=== PATIENT | female | born 1955 | race Caucasian/White ===

== ENCOUNTER 2018-01-31 09:56 | Outpatient (RCR) | payer OTHER, SELFPAY ==
--- NOTE | 2018-01-31 10:41 | HP.OTEVAL_ITS ---
Patient's Visit Information SALLY CALLAHAN is a 62 year old F, referred to Occupational Therapy by Out of Town Doctor, with a diagnosis of Right hand Dupuytren contracture. Date of Evaluation: 01/31/18 Occupational Therapist: Karen Mckee, BRETR/Quirino, CHT - Subjective Subjective: This 62 year old female was seen for inital OT eval following a right Dupuytrens contracture xiaflex injection. Pt is in need of custom orthosis for night use only. pt is employed at [employer] and states she is ind. with all BADLS and IADLS. - ROM MP: Right MF/RF/LF -20/7 ROM Comments: pt demo with light brusing over volar palm of right hand- pt demo right digit ext WFL. pt demo the ability to form a composite fist. pt demo with bilateral arthritis joint deformities. - DASH-Disabilities of Arm, Shoulder& Hand DASH Sum: 39 - Goals Goal:: Pt will demo ind. with donning/doffing of custom orthosis by end of 1st session. Pt will demo understanding of orthosis use and precautions by end of 1st session. - Rehabilitation General Assessment: S/P xiaflex injections- pt demo with brusing over palm of right hand, demo good functional ROM at this time. Pt demo need for custom orthosis for night use to prevent fisting while pt is sleeping. Therapist dilip. custom orthosis- pt demo ind. donning and doffing of the orhosis and understanding of use and precaustions. pt was advise to return with orthosis if any of the adj. would be needed. Pt seen for one visit only Rehabilitation Potential: Good - Anticipated Interventions Anticipated Interventions: Orthoses, Home Program - Visit Plan Frequency: one visit TEXT: Thank you for the opportunity to evaluate your patient. For Medicare and Medicare HMO plans, please review the plan of care and approve it. It will need to be FAXED BACK to us at [phone] for Medicare purposes. Please let me know if there are questions or concerns regarding this plan of care. Physician Signature: Date:
--- NOTE | 2018-03-12 13:07 | HP.OTDCSUM_ITS ---
HP - OT D/C Summary It has been my pleasure to treat SALLY CALLAHAN under orders from JORGE RAMSEY, for the diagnosis of Right hand Dupuytren contracture for a total of 1 visit(s). Please see the following information for a summary of their discharge status. Pt was seen for one visit only- for custom orthosis fabrication- pt was instructed in use and precautions of orthosis:pt was to return with orthosis if any adj needed done- pt has not done so at this time and is now D/C - Goals Other: learn how to put orthosis on and off Goal:: Pt will demo ind. with donning/doffing of custom orthosis by end of 1st session. Pt will demo understanding of orthosis use and precautions by end of 1st session. - D/C Information If there are questions or concerns regarding this patient's occupational therapy , please fell free to call me at [phone]. Thank you for the referral of this patient. Sincerely, Karen Mceke, OTR/L, CHT
== END 2018-01-31 19:00 | disposition home or self-care (01) ==
LOC: OT 09:56
PROVIDERS: Family Provider Internal Medicine; PCP Internal Medicine
DX: M72.0 Palmar fascial fibromatosis [Dupuytren] (principal)
CPT/HCPCS: 97165; 97760

== ENCOUNTER 2019-04-07 09:42 | Observation (INO) | payer OTHER, SELFPAY ==
[2019-04-07] VITALS (9 sets, daily range): BP systolic 121–157; BP diastolic 61–83; PULSE 77–90; RESP 11–18; TEMP 36.2–37.2; O2SAT 98–100; BMI 31.8; BMI 31.2
--- NOTE | 2019-04-07 09:55 | ED.DCSUM_ITS ---
History of Present Illness Chief Complaint: Dizziness Detail of Chief Complaint: Lightheadedness, GI bleed, dyspnea and dyspnea on exertion Onset: Weeks - Onset approximately 2 weeks ago Context: Gradual Onset Timing: Continuous Quality: Bright red blood to dark stools Location: GI Current Severity: Mild Maximum Severity: Moderate Worsened by: Orthostatic symptoms, dyspnea on exertion Relieved by: Supine position and rest Associated Symptoms: No chest pain Narrative: Patient is a 63-year-old woman who is not a good informant. She is very hard of hearing. Son who is with her states she does look pale. He states coworkers called because she looked pale and appeared short of breath. She is on no anticoagulant. She discontinued NSAIDs she was taking. She denies history of reflux, peptic ulcer disease. There is no history of lower GI bleed. She does not believe she has hemorrhoids. Patient reports bright red blood noted on tissue paper to very dark stool and possibly maroon-colored stool. Patient's definition of dizziness is lightheadedness. Son states she has a valvular heart problem and may require surgery. She nor her son know which valve. She denies orthopnea or PND. She denies weight loss or weight gain. She complains of fatigue. Denies pica. Prior similar symptoms: No Recent Illness/Hospitalization: No - Past Medical History (1) Cardiac murmur Status: Chronic (2) Hearing deficit Status: Chronic (3) Hyperlipidemia Status: Chronic (4) Hypothyroidism Status: Chronic Past Medical History - Allergies and Home Meds Allergies/Adverse Reactions: Allergies amoxicillin Allergy (Verified 05/21/17 15:04) Rash Primary Care Physician: Vangie Breaux MD [Primary Care Provider] - Prior records reviewed: Yes Surgical History: noncontributory, - - The patient has a history of right hand surgery. She underwent surgery for Dupuytren's contracture of the left hand. She has had bilateral cataract surgery. She is also undergone surgery as described above. Lives: Alone Smoking Status: Never smoker Alcohol: None Drugs: None - Family History Maternal Family History: Reports: - - Patient's father at the age of 77 with a history of hypertension, diabetes mellitus, and heart disease. Patient's mother is living, age 88, with a history of atrial fibrillation. Review of Systems General: Reports: Malaise. Denies: Chills, Fever, Subjective, Sweats, Weight loss Eyes: Denies: Visual changes - bilaterally, Diplopia ENT: Denies: Rhinorrhea, Sore throat Cardiovascular: Denies: Chest pain, Palpitations, Heart racing Respiratory: Denies: Dyspnea, Cough, Dyspnea on exertion, Orthopnea, Paroxysmal nocturnal dyspnea Gastrointestinal: Reports: Melena, Hematochezia. Denies: Abdominal pain, Nausea, Vomiting, Diarrhea, Constipation Genitourinary: Denies: Dysuria, Hematuria, Frequency Musculoskeletal: Denies: Myalgias, Arthralgias, Neck pain, Back pain, Swelling, Extremity Pain, -, - Skin: Denies: Rash, Wounds Neurological: Reports: Weakness. Denies: Headache, Parasthesia, Numbness Hematologic: Denies: Easy bruising, Easy bleeding Allergy: Denies: Uticaria, Swelling of the mouth Physical Exam Vital Signs/Narrative: Vital Signs Temp Pulse Resp BP Pulse Ox 04/07/19 09:45 97.1 F L 81 18 144/73 H 98 Inital Vital Signs reviewed: Yes General: Well nourished, Well developed, No Acute Distress Head: Normocephalic, Atraumatic Eyes: Perrl, EOMI. Negative for: Pale conjunctiva, Scleral icterus ENT: No rhinorrhea, TM's clear, Dry mucous membranes Neck: Supple, Nontender, No lymphadenopathy, No JVD, - Cardiovascular: Regular rate, Regular rhythm, Normal S1, Normal S2, Murmur - Grade 2-3 systolic murmur heard best over the mitral listening area with radiation to the axilla. Respiratory: CTA bilaterally, Chest nontender, - - Patient is tachypneic and breathing much more rapidly than 18 times as recorded by triage. Abdomen: Soft, Nontender, Nondistended, Normal bowel sounds, No masses. Negative for: Hepatomegaly, Splenomegaly, Mass Back: Nontender, Normal Inspection. Negative for: CVA tenderness Extremities: Nontender, No edema Skin: No rash, Pallor. Negative for: Cyanosis, Diaphoresis, Jaundice Neurological: Alert - Positive, Oriented x3, Cranial nerves II-XII grossly intact, Normal Strength, Normal Sensation Psychological: Normal affect, Normal Mood Diagnostic/Tx/Re-eval - EKG Initial EKG Interpretation: Sinus Rhythm - Ventricular rate is 85. AL interval 164 ms. QRS duration is 90 ms. QT duration is 388 ms. [place] to the left. - Medical Decision Making Patient appears pale and concern for anemia. Rectal exam will be performed once patient is undressed and able to examine. CBC was obtained to assess H&H and platelet count. Basic metabolic panel was obtained to assess BUN to creatinine ratio. Orthostatic vital signs were ordered since she reports lightheadedness not dizziness. There is evidence of old blood on pantiliner. Rectal exam reveals no obvious hemorrhoids. Stool is dark red-brown. Findings are consistent with GI bleed. Patient was typed and screened. Also obtain coags. Hemoglobin is 9.7. Hemoglobin was 13.3 September 29, 2016. Since patient is seen by Dr. Mcintosh at the [facility] Dr. Hemant Lara who is on for the clinic as well as no doc was paged for surgical back-up and possible colonoscopy. Once Dr. Lara has been informed the patient's history and physical will page hospitalist for admission. Orthostatic vital signs are unremarkable. Patient require admission with serial H&H's and appropriate for [facility]. ED Disposition - Plan for ED Patient: Diagnosis: Lower GI bleed, Anemia due to acute blood loss, Symptomatic anemia Referrals: Vangie Breaux MD [Primary Care Provider] -
--- NOTE | 2019-04-07 10:07 | EKG12_ITS ---
Test Reason : DIZZY Blood Pressure : / mmHG Vent. Rate : 085 BPM Atrial Rate : 085 BPM P-R Int : 164 ms QRS Dur : 090 ms QT Int : 388 ms P-R-T Axes : 021 -32 033 degrees QTc Int : 461 ms Normal sinus rhythm with sinus arrhythmia Left axis deviation Abnormal ECG Confirmed by STEVE LOPEZ, CRISTINA ([id number]), technical editor FRITZ ROBB ([id number]) on 04/08/2019 1:40:58 PM Referred By: Evan Potter Confirmed By:CRISTINA WILSON MD
[2019-04-07 10:32] LABS: Absolute Lymphocyte Count 1.11 X10^3/ul (0.83-4.51); Basophil# 0.01 X10^3/uL; Basophil% 0.2 % (0-1); Eosinophil# 0.05 X10^3/uL; Eosinophils% 0.8 % (0-5); Hematocrit 32.4 % (37-47); Hemoglobin 10.7 g/dl (12.0-15.0); Lymphocyte # 1.11 X10^3/ul (4.0); Lymphocyte % 16.8 % (19-41); Mean Corpuscular Hgb 32.1 pg (27.0-32.0); Mean Corpuscular Volume 97.3 fL (81-99); Mean Platelet Vol. 9.3 fl (6.2-12.0); Neutrophil # 5.03 X10^3/uL (2.7-7.7); Neutrophil % 75.9 % (47-70); Platelet Count 230 K/mm3 (150-450); RBC Distribution Width CV 13.3 % (11.6-14.6); RBC Distribution Width SD 46.3 fl (35.1-43.9); Red Blood Count 3.33 M/mm3 (4.2-5.4); White Blood Count 6.6 K/mm3 (4.4-11.0)
[2019-04-07 10:33] LABS: POSITIVE COUNT NO; POSITIVE DIFFERENTIAL NO; POSITIVE MORPHOLOGY NO
[2019-04-07 10:42] LABS: Anion Gap 4 (5-15); BUN 9 mg/dL (7-18); BUN/Creat Ratio 16.7 RATIO (10-20); Calcium,Total 8.9 mg/dL (8.5-10.1); Chloride 108 mmol/L (98-107); Creatinine, Serum 0.54 mg/dL (0.55-1.02); EST Glomerular Filtration Rate 121 mL/min (>60); Est Glom Filt Rate - Afr Amer 147 mL/min (>60); Estimated Creatinine Clearance 96.97 ml/min; Glucose 81 mg/dL (74-106); Potassium 3.6 mmol/L (3.5-5.1); Sodium Level 140 mmol/L (136-145)
[2019-04-07 11:14] LABS: International Normalized Ratio 1.1; Prothrombin Time (Protime)PT. 13.7 SECONDS (11.7-14.9)
[2019-04-07 11:15] LABS: Partial Thromboplast Time 25.4 Seconds (24.1-36.2)
--- NOTE | 2019-04-07 11:46 | CASEMGMT ---
RN CM Assessment Introduced role of RN CM to patient and patient brothmanolo Milton at bedside.? Patient is alert, oriented and able?to participate in RN CM Assessment. ?Care providers, pharmacy, and demographics verified. Presentation: Per ER MD note- Patient coworkers called s/t patient SOB and appearing pale in color. Patient [place]. Admit Dx: Hematochezia Re-Admit: No Barriers/Issues: None PCP: Vangie Breaux Specialists: Cardio- Dr Hitchcock, has not seen a new leguillon debeader yet. Allergy- Dr Nighat Downey Preferred Pharmacy: [facility] Insurance: MMO Rx Benefit: Yes? LNOK: Brother Yoan Cabral and Brothmanolo Cabral [phone] LW/HPOA: Yes Both, aware this CM does not see on file at [facility]. HPOA- Brother Yoan Cabral Living Arrangements:?Lives alone in a LL Apartment, 1 step to enter. ADL?s: Independent with ambulation and ADLs Transportation: Patient drives, Upon DC- Brother Yoan DME: None HHC: Past w/[facility]: None Goal: Home, does not think will have any needs. Denies any questions or concerns. Aware CM remains available for any emerging needs. DC PLAN: Home with no anticipated needs identified at this time. MIK Hoyos
[2019-04-07] MEDS: 0.9% Normal Saline 1,000 ML 100 ML IV (13:22)
[2019-04-07] MEDS: Electrolyte Solution/Peg's 4000 ML PO (15:59)
[2019-04-07 16:16] LABS: Hematocrit 30.7 % (37-47); Hemoglobin 10.1 g/dl (12.0-15.0)
--- NOTE | 2019-04-07 19:56 | HP.PCM_ITS ---
Problem List (1) Lightheadedness Status: Acute (2) Rectal bleeding Status: Acute History of Present Illness Date of Admission: 04/07/19 Chief Complaint: Lightheadedness, rectal bleeding The patient is a 63 year old F who was seen in the emergency room at [facility] with a chief complaint of lightheadedness today. Patient also states she has been having a 2-week history of intermittent rectal b leeding, she denies any melanotic stools. Patient is scheduled to have a colonoscopy performed by Dr. Gallo this . Patient was on meloxicam but stopped taking this approximately 2 weeks ago. Work-up in the emergency room included labs which showed her hemoglobin to be 10.7, patient's chemistry profile was unremarkable. Patient's blood pressure on standing dropped 27 points systolic from 157 to 130. Patient will be admitted for lower GI bleeding, she will be seen in consultation by general surgery and have her blood counts monitored. Patient will be placed on IV Pepcid Past Medical History Past Medical History (Chronic Problems): Chronic Problems Hearing deficit (Chronic) Hypothyroidism (Chronic) Hyperlipidemia (Chronic) Cardiac murmur (Chronic) Surgical wound dehiscence (Chronic) Wound, open, scalp with complication (Chronic) Allergies amoxicillin Allergy (Verified 05/21/17 15:04) Rash Home Medications: Ambulatory Orders Medication Instructions Recorded Azelastine HCl [Astelin] 2 spray NASAL QHS 01/19/16 Fluticasone 0.05% [Flonase Nasal 2 spray NASAL DAILY 01/19/16 [place]] Levothyroxine [Synthroid] 150 mcg PO DAILY 01/19/16 Pravastatin [Pravachol] 20 mg PO QHS 01/19/16 Ipratropium [place] 0.06% 2 spray NASAL 4X/DAY 05/21/17 [ATROVENT NASAL SPRAY (g)] Meloxicam 15 mg PO DAILY 05/29/17 Calcium Carb/Vitamin D3/Vit K1 1 tab PO DAILY 07/24/17 Latanoprost 0.005% [Xalatan 1 drop OPHTHALMIC QHS 07/24/17 Opthalmic] Multivitamins,Therapeutic 1 tab PO DAILY 07/24/17 [Multivitamin] Naphazoline HCl/Phenir Mal 1 drp EACH EYE 4X/DAY 04/07/19 [Naphcon-A Eye Drops] Surgical History: cataract, - - The patient has a history of right hand surgery. She underwent surgery for Dupuytren's contracture of the left hand. She has had bilateral cataract surgery. She is also undergone surgery as described above. 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 Patient's mother is living, age 88, with a history of atrial fibrillation. Paternal History Items: Diabetes, Stroke Review of Systems Constitutional: Denies: Anorexia, Chills, Fever, Night Sweats, Malaise, Weakness, Weight Change, Fatigue Eyes: Denies: Cataracts, Conjunctivae Inflammation, Double vision, Drainage HEENT: Denies: Difficulty Hearing, Difficulty Swallowing, Dysphasia, Ear Pain, Eye Pain, Hearing Changes, Nasal bleeding, Nasal Congestion Cardiovascular: Denies: Chest Pain, Claudication, Chest Pressure, Chest Tightness, Edema, Palpitations Respiratory: Denies: Cough, Hemoptysis, Pleuritic Pain, Shortness of Breath, Shortness of breath at rest, Shortness of breath upon exertion Gastrointestinal: Reports: Hematochezia. Denies: Abdominal Pain, Constipation, Diarrhea, Dyspepsia, Hematemesis, Nausea, Melena, Vomiting Genitourinary: Denies: Dysuria, Frequency, Hematuria, Hesitancy, Incontinence, Urgency Gynecological: Denies: Breast symptoms Musculoskeletal: Denies: Back Pain, Foot Pain, Hand Pain, Joint Pain, Joint stiffness, Joint swelling, Joint Tenderness, Leg Pain Skin: Denies: Dryness, Jaundice, Pruritis, Rash Neurological: Denies: Blurred vision, Double vision, Change in Speech, Slurred speech, Difficulty swallowing, Focal weakness, Headaches, Numbness, Tingling Psychiatric: Denies: Anxiety, Depression, Homicidal Ideations, Suicidal Ideations Endocrine: Denies: Change in Body Habitus, Heat/ Cold Intolerance, Polydipsia, Polyuria Hematologic/ Lymphatic: Denies: Adenopathy, Anemia, Easy Bruising, Easy Bleeding, Petechiae, Purpura VTE Information - Inpt Only VTE Present on Admission: No VTE Mechan Device Prophylaxis: SCD's VTE Pharm Prophylaxis ordered?: No Reason prophylaxis not ordered:: Treatment Not Indicated Patient Problems: Active and Suspected Problems Lower GI bleed (Acute) Anemia due to acute blood loss (Acute) Symptomatic anemia (Acute) Lightheadedness (Acute) Rectal bleeding (Acute) - Physical Exam General: Alert, Oriented x3, Cooperative, No apparent distress, Well developed, Well nourished HEENT: Atraumatic, PERRLA, EOMI, Normocephalic Oral: Moist Mucosa Neck: Supple, No JVD, Trachea Midline, Thyroid Normal Size and Texture Lungs: Clear to auscultation, Normal air movement, No rhonchi, No wheeze, No rales Cardiovascular: Regular rate, Regular Rhythm, Normal S1, Normal S2, No murmurs Abdomen: Bowel Sounds Present, Soft, Non Tender, Non-Distended, No hernias noted Extremities: No clubbing, No cyanosis, No edema, Capillary Refill Less than 3 Seconds Skin: No rashes, No breakdown Musculoskeletal: No Tenderness to Palpation of Joints or Extremities Neurological: Cranial nerves II-XII grossly intact, Neuro grossly intact, Sensory exam intact to light touch and pain, Coordination normal Psych/Mental Status: Normal Affect, Appropriate, Alert and oriented to time, place, person, mood and affect Vital Signs Temp Pulse Resp BP Pulse Ox 98.9 F 83 16 121/61 H 100 04/07/19 18:31 04/07/19 18:31 04/07/19 18:31 04/07/19 18:31 04/07/19 18:31 Oxygen Delivery Method Room Air Weight: 56.6 kg Body Mass Index (BMI) 31.2 Intake and Output for Last 24 Hours 04/05/19 04/06/19 04/07/19 23:59 23:59 23:59 Intake Total 434 / 434 Balance 434 / 434 Microbiology Past 72 Hours 04/07/19 10:00 Stool Occult Blood (LINDA) - Final Stool Laboratory Tests Past 24 Hrs 04/07/19 04/07/19 04/07/19 10:00 10:00 10:15 WBC 6.6 RBC 3.33 L Hgb 10.7 L Hct 32.4 L MCV 97.3 MCH 32.1 H MCHC 33.0 RDW 13.3 RDW Differential 46.3 H Plt Count 230 MPV 9.3 Immature Gran % (Auto) 0.300 Neut % (Auto) 75.9 H Lymph % (Auto) 16.8 L [place] % (Auto) 6.0 Eos % (Auto) 0.8 Baso % (Auto) 0.2 Absolute Neuts (auto) 5.0 Absolute Lymphs (auto) 1.11 Total Counted Not Reportable PT Cancelled INR Cancelled APTT Cancelled Sodium 140 Potassium 3.6 Chloride 108 H Carbon Dioxide 28.0 Anion Gap 4 L BUN 9 Creatinine 0.54 L Estim Creat Clear Calc 96.97 Est GFR (MDRD) Af Amer 147 Est GFR (MDRD) Non-Af 121 BUN/Creatinine Ratio 16.7 Glucose 81 Calcium 8.9 Blood Type Antibody Screen 04/07/19 04/07/19 04/07/19 10:15 11:00 15:58 WBC RBC Hgb 10.1 L Hct 30.7 L MCV MCH MCHC RDW RDW Differential Plt Count MPV Immature Gran % (Auto) Neut % (Auto) Lymph % (Auto) [place] % (Auto) Eos % (Auto) Baso % (Auto) Absolute Neuts (auto) Absolute Lymphs (auto) Total Counted PT 13.7 INR 1.1 APTT 25.4 Sodium Potassium Chloride Carbon Dioxide Anion Gap BUN Creatinine Estim Creat Clear Calc Est GFR (MDRD) Af Amer Est GFR (MDRD) Non-Af BUN/Creatinine Ratio Glucose Calcium Blood Type A POSITIVE Antibody Screen NEGATIVE Assessment/Plan All Active Problems Lower GI bleed (Acute) Anemia due to acute blood loss (Acute) Symptomatic anemia (Acute) Lightheadedness (Acute) Rectal bleeding (Acute) #1 Acute lower GI bleed-patient was placed into observation status, H and H will be monitored, general surgery will see the patient consultation, we will plan on the patient having endoscopy tomorrow. #2 anemia-probably secondary to acute blood loss, monitor H&H #3 hypothyroidism #4 hyperlipidemia-patient's Pravachol will be held for now, she is currently in observation status #5 osteoarthritis Code Visit Inpatient E&M: 89895 Init Hosp L3
[2019-04-07 20:32] LABS: Hematocrit 29.5 % (37-47); Hemoglobin 9.7 g/dl (12.0-15.0)
--- NOTE | 2019-04-07 22:27 | CON.PCM_ITS ---
Reason for Consult Date of Consultation: 04/07/19 Reason for Consultation: hematochezia History of Present Illness: The patient is a 63 year old F presents to [facility] with complaint of lightheadedness and feeling dizzy after 2 week history of rectal bleeding. The patient was scheduled to see my partner-Dr. Gallo but noted the above complaints and presented to [facility] emergency department. she was seen by Dr. Marino in our office on March 31. She noted that she had had rectal bleeding at that time for approximately 1 week. She underwent colonoscopy 2009 which demonstrated tortuous colon diverticulosis and hemorrhoids. She has noted bloody stools for the last week. She denied constipation or straining with her bowel movements. She denied abdominal pain. She noted no family history of colon cancer. the patient has a known history of aortic stenosis. She underwent echocardiogram on September 04, 2018. she is noted to have severe aortic valvular stenosis there was no aortic valvular regurgitation. There felt to be severe calcifications. The peak flow was turned 97 cm/s with a peak gradient of 35 mmHg. The estimated aortic valve area was 0.77 cm?. estimated Salena August 2016 was 1.1 cm?. she is recommended to have close follow-up and anticipated need for valve replacement in the future. she takes meloxicam. She takes no other blood thinners. Past Medical History Past Medical History (Chronic Problems): Chronic Problems Hearing deficit (Chronic) Hypothyroidism (Chronic) Hyperlipidemia (Chronic) Cardiac murmur (Chronic) Surgical wound dehiscence (Chronic) Wound, open, scalp with complication (Chronic) Allergies amoxicillin Allergy (Verified 05/21/17 15:04) Rash Home Medications: Ambulatory Orders Medication Instructions Recorded Azelastine HCl [Astelin] 2 spray NASAL QHS 01/19/16 Fluticasone 0.05% [Flonase Nasal 2 spray NASAL DAILY 01/19/16 [place]] Levothyroxine [Synthroid] 150 mcg PO DAILY 01/19/16 Pravastatin [Pravachol] 20 mg PO QHS 01/19/16 Ipratropium [place] 0.06% 2 spray NASAL 4X/DAY 05/21/17 [ATROVENT NASAL SPRAY (g)] Meloxicam 15 mg PO DAILY 05/29/17 Calcium Carb/Vitamin D3/Vit K1 1 tab PO DAILY 07/24/17 Latanoprost 0.005% [Xalatan 1 drop OPHTHALMIC QHS 07/24/17 Opthalmic] Multivitamins,Therapeutic 1 tab PO DAILY 07/24/17 [Multivitamin] Naphazoline HCl/Phenir Mal 1 drp EACH EYE 4X/DAY 04/07/19 [Naphcon-A Eye Drops] Surgical History: cataract, - - The patient has a history of right hand surgery. She underwent surgery for Dupuytren's contracture of the left hand. She has had bilateral cataract surgery. She is also undergone surgery as described above. 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 Patient's mother is living, age 88, with a history of atrial fibrillation. Paternal History Items: Diabetes, Stroke Review of Systems Constitutional: Reports: Malaise, Weakness. Denies: Chills, Fever, Weight Change HEENT: Denies: Head Aches, Sinus Congestion, Sinus Drainage Cardiovascular: Denies: Chest Pain, Palpitations Respiratory: Denies: Cough, Shortness of breath at rest, Sputum production Gastrointestinal: Reports: Hematochezia. Denies: Abdominal Pain, Nausea, Vomiting Genitourinary: Denies: Dysuria Musculoskeletal: Denies: Joint Pain, Joint Tenderness Patient Problems: Active and Suspected Problems Lower GI bleed (Acute) Anemia due to acute blood loss (Acute) Symptomatic anemia (Acute) Lightheadedness (Acute) Rectal bleeding (Acute) - Physical Exam General: Alert, Oriented x3, Cooperative Neck: Supple, No JVD, Negative Carotid Bruits Lungs: Clear to auscultation, Normal air movement Cardiovascular: Regular rate, Murmur Abdomen: Bowel Sounds Present, Soft, Non Tender Vital Signs Temp Pulse Resp BP Pulse Ox 98.9 F 83 16 121/61 H 100 04/07/19 18:31 04/07/19 18:31 04/07/19 18:31 04/07/19 18:31 04/07/19 18:31 Oxygen Delivery Method Room Air Weight: 56.6 kg Body Mass Index (BMI) 31.2 Intake and Output for Last 24 Hours 04/05/19 04/06/19 04/07/19 23:59 23:59 23:59 Intake Total 434 / 434 Balance 434 / 434 Microbiology Past 72 Hours 04/07/19 10:00 Stool Occult Blood (LINDA) - Final Stool Laboratory Tests Past 24 Hrs 04/07/19 04/07/19 04/07/19 10:00 10:00 10:15 WBC 6.6 RBC 3.33 L Hgb 10.7 L Hct 32.4 L MCV 97.3 MCH 32.1 H MCHC 33.0 RDW 13.3 RDW Differential 46.3 H Plt Count 230 MPV 9.3 Immature Gran % (Auto) 0.300 Neut % (Auto) 75.9 H Lymph % (Auto) 16.8 L [place] % (Auto) 6.0 Eos % (Auto) 0.8 Baso % (Auto) 0.2 Absolute Neuts (auto) 5.0 Absolute Lymphs (auto) 1.11 Total Counted Not Reportable PT Cancelled INR Cancelled APTT Cancelled Sodium 140 Potassium 3.6 Chloride 108 H Carbon Dioxide 28.0 Anion Gap 4 L BUN 9 Creatinine 0.54 L Estim Creat Clear Calc 96.97 Est GFR (MDRD) Af Amer 147 Est GFR (MDRD) Non-Af 121 BUN/Creatinine Ratio 16.7 Glucose 81 Calcium 8.9 Blood Type Antibody Screen 04/07/19 04/07/19 04/07/19 10:15 11:00 15:58 WBC RBC Hgb 10.1 L Hct 30.7 L MCV MCH MCHC RDW RDW Differential Plt Count MPV Immature Gran % (Auto) Neut % (Auto) Lymph % (Auto) [place] % (Auto) Eos % (Auto) Baso % (Auto) Absolute Neuts (auto) Absolute Lymphs (auto) Total Counted PT 13.7 INR 1.1 APTT 25.4 Sodium Potassium Chloride Carbon Dioxide Anion Gap BUN Creatinine Estim Creat Clear Calc Est GFR (MDRD) Af Amer Est GFR (MDRD) Non-Af BUN/Creatinine Ratio Glucose Calcium Blood Type A POSITIVE Antibody Screen NEGATIVE 04/07/19 20:05 WBC RBC Hgb 9.7 L Hct 29.5 L MCV MCH MCHC RDW RDW Differential Plt Count MPV Immature Gran % (Auto) Neut % (Auto) Lymph % (Auto) [place] % (Auto) Eos % (Auto) Baso % (Auto) Absolute Neuts (auto) Absolute Lymphs (auto) Total Counted PT INR APTT Sodium Potassium Chloride Carbon Dioxide Anion Gap BUN Creatinine Estim Creat Clear Calc Est GFR (MDRD) Af Amer Est GFR (MDRD) Non-Af BUN/Creatinine Ratio Glucose Calcium Blood Type Antibody Screen Assessment/Plan All Active Problems Lower GI bleed (Acute) Anemia due to acute blood loss (Acute) Symptomatic anemia (Acute) Lightheadedness (Acute) Rectal bleeding (Acute) hematochezia, GI bleed I plan to perform upper and lower endoscopy. The patient was taken to the risks, benefits, possible complicationsand alternatives including increased risk to her severe aortic stenosis. The patient consents to this planned endoscopic procedure.
[2019-04-07] MEDS: Ipratropium Bromide 0.06% NASAL SPRAY 2 SPRAY NASAL (23:03)
[2019-04-07] MEDS: 0.9% NaCl Peripheral Flush Adult/Peds IV (23:04)
[2019-04-07] MEDS: Latanoprost 0.005% 1 Bottle 1 DRP OPHTHALMIC (23:06)
[2019-04-08] VITALS (10 sets, daily range): BP systolic 80–108; BP diastolic 50–63; PULSE 74–89; RESP 16–18; TEMP 36.4–37.1; O2SAT 96–100; BMI 31.2
[2019-04-08] MEDS: 0.9% Normal Saline 1,000 ML 100 ML IV ×2 (00:01→08:04)
[2019-04-08 00:49] LABS: Hematocrit 30.1 % (37-47); Hemoglobin 10.1 g/dl (12.0-15.0)
[2019-04-08] MEDS: Ondansetron 4 MG/2 ML Vial IV (03:00)
--- NOTE | 2019-04-08 05:00 | EKG12_ITS ---
Test Reason : AM EKG Blood Pressure : / mmHG Vent. Rate : 084 BPM Atrial Rate : 084 BPM P-R Int : 134 ms QRS Dur : 086 ms QT Int : 398 ms P-R-T Axes : 019 -40 001 degrees QTc Int : 470 ms Normal sinus rhythm Left axis deviation Nonspecific ST abnormality Abnormal ECG When compared with ECG of 07-APR-2019 10:23, MANUAL COMPARISON REQUIRED, DATA IS UNCONFIRMED Confirmed by SONIA MINER ([id number]), index editor FRITZ ROBB ([id number]) on 04/10/2019 2:01:10 PM Referred By: Evan Potter Confirmed By:SONIA MINER
[2019-04-08] MEDS: Levothyroxine 150 MCG Tablet PO (05:18)
--- NOTE | 2019-04-08 05:56 | NURSING ---
Report given to Judith MCKOY in [place]. Pt ready to be transported.
--- NOTE | 2019-04-08 06:30 | EGD_PTH ---
PATIENT: SALLY CALLAHAN LOC: [facility] U#:[id number] AGE/SX: 63/F ROOM: [facility] RE04/07/[address]: Dr. Evan Potter DO : 1955 BED: 1 DIS: 04/08/2019 SPEC #: [id number] RECD: 04/08/19 08:14 STATUS: SARMAD REChelsey #: [id number] ROCIO: 04/08/19 06:[address]: Hemant Olsen DEPT: SURGICAL PATHOLOGY RECD BY: Meek Tong ENTERED: 04/08/19 14:17 SP TYPE: EGD BIOPSY OT DR: MD Dr. Evan Gray DO Tissues: A - Gastric mucous membrane B - Esophageal mucous membrane C - Rectum, NOS Procedures: Surgery Specimen Level IV HEADER OPERATION: Colonoscopy, EGD ([facility] [place]) PRE-OP DIAGNOSIS: Hematochezia TISSUE SUBMITTED: A - Antral biopsy for H. pylori/path, B - Distal esophagus biopsy, C - Rectal biopsy MICROSCOPIC DIAGNOSIS A. Antral biopsy: Mild gastritis. See microscopic description and comment. B. Distal esophagus, biopsy: Fragments of squamous epithelium with mild chronic inflammation. C. Rectal biopsy: Hyperplastic polyp with superficial acute inflammation. SJ:rg 04/09/19 COMMENT A. The results of immunohistochemistry for Helicobacter pylori will be reported separately ([id number]). Correlation with clinical, endoscopic findings and appropriate follow up are necessary. MICROSCOPIC DESCRIPTION Slides are reviewed. A. The specimen shows fragments of gastric mucosa with chronic inflammatory cell infiltrates in the lamina propria consisting of lymphocytes and plasma cells, consistent with mild chronic gastritis. GROSS DESCRIPTION A - Received in fixative is one container labeled with the patient's name and designated antral biopsy. The specimen consists of one irregular fragment of light vences soft tissue that measures 0.4 x 0.4 x 0.1 cm. The specimen is totally submitted in one cassette. B - Received in fixative is one container labeled with the patient's name and designated distal esophagus biopsy. The specimen consists of one irregular fragment of light vences soft tissue that measures 0.5 x 0.3 x 0.1 cm. The specimen is totally submitted in one cassette. C - Received in fixative is one container labeled with the patient's name and designated rectal biopsy. The specimen consists of one irregular fragment of light vences soft tissue that measures 0.4 x 0.3 x 0.1 cm. The specimen is totally submitted in one cassette. / SJ:rg 04/08/19 TC:1 CPT: 67155 x3
--- NOTE | 2019-04-08 06:30 | IMM_PTH ---
PATIENT: SALLY CALLAHAN LOC: [facility] U#:[id number] AGE/SX: 63/F ROOM: [facility] RE04/07/[address]: Dr. Evan Potter DO : 1955 BED: 1 DIS: 04/08/2019 SPEC #: [id number] RECD: 04/08/19 16:32 STATUS: SARMAD REQ #: [id number] ROCIO: 04/08/19 06:[address]: Hemant Olsen DEPT: IMMUNOHISTOCHEMISTRY RECD BY: Xiomy Veliz ENTERED: 04/08/19 16:33 SP TYPE: IMMUNO OTHR DR: MD Dr. Evan Gray DO Tissues: A - Stomach, NOS Procedures: H Pylori (initial) PHYSICIAN & INSTITUTION [place] [id number] SPECIMEN INFORMATION: Tissue Source: A - Antral biopsy Clinical Info: Hematochezia Specimen Number: [id number] CPT code: 36364 METHODOLOGY: Deparaffinized sections of prefer/formalin-fixed tissue or PAP/DQ stained slides are incubated with monoclonal/polyclonal antibodies/oligonucleotide probes. Localization is made via biotin free immunoperoxidase method. Appropriate controls are performed and reacted as expected. Results on target cell population are indicated in the following table: RESULTS: ANTIBODY / CLONE RESULT Block A H Pylori (polyclonal) negative These tests were developed and their performance characteristics determined by [facility]. They may not have been cleared or approved by the U.S. Food and Drug Administration. The FDA has determined that such clearance or approval is not necessary. INTERPRETATION: A. Antral biopsy: Negative for Helicobacter pylori organisms. SJ:sven 04/09/19
--- NOTE | 2019-04-08 07:10 | PCM.PN.SRG ---
Patient Problems: Active and Suspected Problems Lower GI bleed (Acute) Anemia due to acute blood loss (Acute) Symptomatic anemia (Acute) Lightheadedness (Acute) Rectal bleeding (Acute) - Physical Exam General: Alert, Oriented x3, Cooperative Lungs: Clear to auscultation, Normal air movement Cardiovascular: Regular rate, Murmur Abdomen: Bowel Sounds Present, Soft, Non Tender Vital Signs Temp Pulse Resp BP Pulse Ox 97.9 F 87 16 108/63 96 04/08/19 04:30 04/08/19 04:30 04/08/19 04:30 04/08/19 04:30 04/08/19 04:30 Oxygen Delivery Method Room Air Weight: 56.6 kg Body Mass Index (BMI) 31.2 Intake and Output for Last 24 Hours 04/06/19 04/07/19 04/08/19 23:59 23:59 23:59 Intake Total 1833.4 / 1833.4 834 / 834 Balance 1833.4 / 1833.4 834 / 834 Microbiology Past 72 Hours 04/07/19 10:00 Stool Occult Blood (LINDA) - Final Stool Laboratory Tests Past 24 Hrs 04/07/19 04/07/19 04/07/19 10:00 10:00 10:15 WBC 6.6 RBC 3.33 L Hgb 10.7 L Hct 32.4 L MCV 97.3 MCH 32.1 H MCHC 33.0 RDW 13.3 RDW Differential 46.3 H Plt Count 230 MPV 9.3 Immature Gran % (Auto) 0.300 Neut % (Auto) 75.9 H Lymph % (Auto) 16.8 L [place] % (Auto) 6.0 Eos % (Auto) 0.8 Baso % (Auto) 0.2 Absolute Neuts (auto) 5.0 Absolute Lymphs (auto) 1.11 Total Counted Not Reportable PT Cancelled INR Cancelled APTT Cancelled Sodium 140 Potassium 3.6 Chloride 108 H Carbon Dioxide 28.0 Anion Gap 4 L BUN 9 Creatinine 0.54 L Estim Creat Clear Calc 96.97 Est GFR (MDRD) Af Amer 147 Est GFR (MDRD) Non-Af 121 BUN/Creatinine Ratio 16.7 Glucose 81 Calcium 8.9 Blood Type Antibody Screen 04/07/19 04/07/19 04/07/19 10:15 11:00 15:58 WBC RBC Hgb 10.1 L Hct 30.7 L MCV MCH MCHC RDW RDW Differential Plt Count MPV Immature Gran % (Auto) Neut % (Auto) Lymph % (Auto) [place] % (Auto) Eos % (Auto) Baso % (Auto) Absolute Neuts (auto) Absolute Lymphs (auto) Total Counted PT 13.7 INR 1.1 APTT 25.4 Sodium Potassium Chloride Carbon Dioxide Anion Gap BUN Creatinine Estim Creat Clear Calc Est GFR (MDRD) Af Amer Est GFR (MDRD) Non-Af BUN/Creatinine Ratio Glucose Calcium Blood Type A POSITIVE Antibody Screen NEGATIVE 04/07/19 04/08/19 20:05 00:25 WBC RBC Hgb 9.7 L 10.1 L Hct 29.5 L 30.1 L MCV MCH MCHC RDW RDW Differential Plt Count MPV Immature Gran % (Auto) Neut % (Auto) Lymph % (Auto) [place] % (Auto) Eos % (Auto) Baso % (Auto) Absolute Neuts (auto) Absolute Lymphs (auto) Total Counted PT INR APTT Sodium Potassium Chloride Carbon Dioxide Anion Gap BUN Creatinine Estim Creat Clear Calc Est GFR (MDRD) Af Amer Est GFR (MDRD) Non-Af BUN/Creatinine Ratio Glucose Calcium Blood Type Antibody Screen Medical Necessity - Tobacco Use Smoking Status: Never smoker Tobacco Use: Non-smoker Assessment/Plan All Active Problems Lower GI bleed (Acute) Anemia due to acute blood loss (Acute) Symptomatic anemia (Acute) Lightheadedness (Acute) Rectal bleeding (Acute) hematochezia, GI bleed - likely diverticular bleed upper and lower endoscopy performed. EGD - mild duodenitis, gastritis, small hiatal hernia and mild distal esophagitis. no signs of upper GI bleeding. colon - -dense diverticulosis, no active bleeding, old blood in last 20cm - likely distal diverticular bleed. small rectal polyp removed
--- NOTE | 2019-04-08 07:15 | OP.ENDO_ITS ---
04/08/2019 Vangie Breaux [address] [phone] Re : Upper GI endoscopy procedure for Vinita Cabral Dear Dr. Breaux This procedure was performed on Monday, April 08, 2019. My impressions and recommendations are as follows: Impressions : - Normal examined jejunum. - Duodenitis. - Gastritis. Biopsied. - Small hiatal hernia. - Mildly severe reflux esophagitis. Biopsied. Recommendations : - Return patient to hospital good for ongoing care. - Use Protonix (pantoprazole) 40 mg PO daily. - Continue present medications. My findings are described in the full procedure note, which is enclosed. If I can be of further assistance, please feel free to contact me at Doctor phone number(s): , Work: . Sincerely, Hemant Olsen MD 04/08/2019 7:15:20 AM This report has been signed electronically.
--- NOTE | 2019-04-08 07:18 | OP.ENDO_ITS ---
04/08/2019 Vangie Breaux [address] [id number] Re : Colonoscopy procedure for Vinita Cabral Dear Dr. Breaux This procedure was performed on Monday, April 08, 2019. My impressions and recommendations are as follows: Impressions : - One 4 mm polyp at the recto-sigmoid colon, removed with a cold biopsy forceps. Resected and retrieved. - Diverticulosis in the entire examined colon. - Blood in the sigmoid colon. - The distal rectum and anal verge are normal on retroflexion view. Recommendations : - Return patient to hospital good for ongoing care. - Resume previous diet. - Continue present medications. - Repeat colonoscopy is recommended. The colonoscopy date will be determined after pathology results from today's exam become available for review. My findings are described in the full procedure note, which is enclosed. If I can be of further assistance, please feel free to contact me at Doctor phone number(s): , Work: . Sincerely, Hemant Olsen MD 04/08/2019 7:18:17 AM This report has been signed electronically.
[2019-04-08] MEDS: Pantoprazole Sodium 40 MG Tablet PO (09:57)
[2019-04-08] MEDS: Ipratropium Bromide 0.06% NASAL SPRAY 2 SPRAY NASAL ×2 (09:58→13:32)
--- NOTE | 2019-04-08 10:33 | CASEMGMT ---
SW let patient know that her Healthcare POA and Healthcare LW are not on file at [facility]. Tona MOJICA DIAMOND SELECTOR
--- NOTE | 2019-04-08 10:35 | DCINST_ITS ---
- Discharge Diagnoses Current Active Problems: Current Active and Chronic Problems Lower GI bleed (Acute) Anemia due to acute blood loss (Acute) Symptomatic anemia (Acute) Lightheadedness (Acute) Rectal bleeding (Acute) You will use the following diet at home:: No restrictions Your food should be the consistency of: Regular Your liquids should be the consistency of: Regular/Thin Discharge Activity: Return to Normal Activity Weight Bearing Status: Full weight bearing Allergies/Adverse Reactions: Allergies amoxicillin Allergy (Verified 05/21/17 15:04) Rash Medications to take at Discharge Azelastine HCl [Astelin] 2 spray NASAL QHS 01/19/16 Fluticasone 0.05% [Flonase Nasal [place]] 2 spray NASAL DAILY 01/19/16 Levothyroxine [Synthroid] 150 mcg PO DAILY 01/19/16 Pravastatin [Pravachol] 20 mg PO QHS 01/19/16 Ipratropium [place] 0.06% [ATROVENT NASAL SPRAY] 2 spray NASAL 4X/DAY 05/21/17 Calcium Carb/Vitamin D3/Vit K1 1 tab PO DAILY 07/24/17 Latanoprost 0.005% [Xalatan Opthalmic] 1 drop OPHTHALMIC QHS 07/24/17 Multivitamins,Therapeutic [Multivitamin] 1 tab PO DAILY 07/24/17 Naphazoline HCl/Phenir Mal [Naphcon-A Eye Drops] 1 drp EACH EYE 4X/DAY 04/07/19 Pantoprazole Sodium [Protonix] 40 mg PO DAILY #30 tab 04/08/19 The following prescriptions were given: Pantoprazole Sodium [Protonix] 40 mg PO DAILY #30 tab Transmission Status: Pending to [id number] Primary Care Physician: Vangie Breaux MD [Primary Care Provider] - Please follow up with your Primary Care Physician in: in 1-2 weeks Test Results: Test results from this visit will be discussed in further detail at your follow- up appointment, if applicable. Please Follow Up With: Hemant Olsen MD When: in 3 weeks
--- NOTE | 2019-04-10 09:05 | PCM.DC.SUM ---
Discharge Date and Diagnosis Date of Admission: 04/07/19 Date of Discharge: 04/08/19 - Primary Discharge Diagnosis #1 diverticular bleed #2 gastritis #3 colon polyp #4 gastritis #5 reflux esophagitis #6 anemia of acute GI bleeding not requiring transfusion - Secondary Discharge Diagnosis Chronic Problems Hearing deficit (Chronic) Hypothyroidism (Chronic) Hyperlipidemia (Chronic) Cardiac murmur (Chronic) Surgical wound dehiscence (Chronic) Wound, open, scalp with complication (Chronic) Hospital Course and Treatment Procedures: Colonoscopy, EGD Summary of Care Provided: The patient is a 63 year old F who was seen in the emergency room at [facility] with chief complaint of lightheadedness and rectal bleeding. Patient was scheduled to undergo colonoscopy later this week but because of the lightheadedness, came to the ER for evaluation. Evaluation in the ER showed the patient be slightly anemic, systolic blood pressure did drop on orthostatic measurements but the patient was asymptomatic. General surgery was contacted and agreed to carry out endoscopy, the patient was placed in observation status on PCU and her hemoglobin was monitored-there was no significant drop in hemoglobin during her hospitalization. On 04/08/2019, patient underwent colonoscopy and an EGD, there is evidence of diverticulosis but no active bleeding, small colon polyp was removed, patient had gastritis, esophagitis, and duodenitis on her EGD. On 04/08/2019, patient was seen and examined: On examination she appeared in good health and spirits. Vital signs as documented. Skin warm and dry and without overt rashes. Neck without JVD. Lungs clear. Heart exam notable for regular rhythm, normal sounds and absence of murmurs, rubs or gallops. Abdomen unremarkable and without evidence of organomegaly, masses, or abdominal aortic enlargement. Extremities nonedematous. Neuro: Cranial nerves II through XII are grossly intact, no focal motor deficits were noted, sensation to light touch and pinprick is intact. Psych: Patient is alert and oriented x3, she does not appear anxious or depressed On 04/08/2019, patient was seen and examined felt to be in stable condition for discharge home - Physical Exam Vital Signs Temp Pulse Resp BP Pulse Ox 98.3 F 74 18 99/50 L 97 04/08/19 13:50 04/08/19 13:50 04/08/19 13:50 04/08/19 13:50 04/08/19 13:50 Oxygen Delivery Method Room Air Weight: 56.6 kg Body Mass Index (BMI) 31.2 Intake and Output for Last 24 Hours 04/08/19 04/09/19 04/10/19 23:59 23:59 23:59 Intake Total 834 / 834 Output Total 200 / 200 Balance 634 / 634 Microbiology Past 72 Hours 04/07/19 10:00 Stool Occult Blood (LINDA) - Final Stool Discharge Activity: Return to Normal Activity Weight Bearing Status: Full weight bearing Home Medications: Medications to take at Discharge Azelastine HCl [Astelin] 2 spray NASAL QHS 01/19/16 Fluticasone 0.05% [Flonase Nasal [place]] 2 spray NASAL DAILY 01/19/16 Levothyroxine [Synthroid] 150 mcg PO DAILY 01/19/16 Pravastatin [Pravachol] 20 mg PO QHS 01/19/16 Ipratropium [place] 0.06% [ATROVENT NASAL SPRAY] 2 spray NASAL 4X/DAY 05/21/17 Calcium Carb/Vitamin D3/Vit K1 1 tab PO DAILY 07/24/17 Latanoprost 0.005% [Xalatan Opthalmic] 1 drop OPHTHALMIC QHS 07/24/17 Multivitamins,Therapeutic [Multivitamin] 1 tab PO DAILY 07/24/17 Naphazoline HCl/Phenir Mal [Naphcon-A Eye Drops] 1 drp EACH EYE 4X/DAY 04/07/19 Pantoprazole Sodium [Protonix] 40 mg PO DAILY #30 tab 04/08/19 Following Prescrptions Were Given to Patient: Pantoprazole Sodium [Protonix] 40 mg PO DAILY #30 tab Transmission Status: Received by [id number] Primary Care Physician: Vangie Breaux MD [Primary Care Provider] - Please follow up with your Primary Care Physician in: in 1-2 weeks Please Follow Up With: Hemant Olsen MD When: in 3 weeks Disposition: Home Minutes spent on discharge:: 31 Patient Condition:: Stable Medical Necessity - Tobacco Use Smoking Status: Never smoker Tobacco Use: Non-smoker Meaningful Use Info Meaningful Use Diagnoses (Choose all that apply): None applicable Code Visit OBSV E&M: 95903 Observation care discharge
== END 2019-04-08 13:32 | disposition home or self-care (01) ==
LOC: ED 10:10 → PCU 13:20
PROVIDERS: Surgery; Admitting Provider Internal Medicine; Emergency Provider Emergency Medicine; Family Provider Internal Medicine; PCP Internal Medicine; Referring Provider Internal Medicine; Visit Provider Internal Medicine
PROC: 0DJD8ZZ Inspection of Lower Intestinal Tract, Via Natural or Artificial Opening Endoscopic (ICD-10-PCS; CPT 45378; principal; 2019-04-08 06:25)
DX: K57.31 Diverticulosis of large intestine without perforation or abscess with bleeding (principal); D62 Acute posthemorrhagic anemia; K29.70 Gastritis, unspecified, without bleeding; K21.0 Gastro-esophageal reflux disease with esophagitis; E03.9 Hypothyroidism, unspecified; E78.5 Hyperlipidemia, unspecified; H91.90 Unspecified hearing loss, unspecified ear; M19.90 Unspecified osteoarthritis, unspecified site; K44.9 Diaphragmatic hernia without obstruction or gangrene; Z79.899 Other long term (current) drug therapy
CPT/HCPCS: 43239; 45380; 36415; 80048; 82274; 85014; 85018; 85025; 85610; 85730; 86850; 86900; 88305; 88342; 93005; 96361; 96374; 96375; 99218; 99285; J7030; A4216; G0378; J2405; J3490

== ENCOUNTER → 2020-02-06 08:00 | Outpatient (CLI) | payer OTHER, SELFPAY ==
[2019-04-08 00:52] VITALS: BMI 31.2
--- NOTE | 2020-02-06 08:05 | RAD_ITS ---
STUDY: AIR-CONTRAST UPPER GI SERIES AND SMALL BOWEL FOLLOW-THROUGH EXAMINATION. REASON FOR EXAM: Female, 64 years old. Bloating for 1-2 months FLUOROSCOPY TIME (if supplied): ( 142 seconds ) minutes/seconds TECHNIQUE: The patient ingested barium. Multiple images of the esophagus, stomach and duodenum were obtained. Following this, a small bowel follow-through examination was performed. COMPARISON: None. FINDINGS: The esophagus is unremarkable. There is no evidence of obstruction. No mass lesion or gastroesophageal reflux is seen. The stomach and duodenum are unremarkable. There is no evidence of ulceration. No mass lesion is present. A small bowel follow-through examination was then performed. The small bowel transit is normal. There is no evidence of intrinsic or extrinsic small bowel disease. The terminal ileum is unremarkable. RAD/Upper GI/w Small Bowel IMPRESSION: Unremarkable air contrast upper GI series and small bowel follow-through examination. Electronically Signed: Frank Lucero, at 10:21 EDT , Service support ,
== END ==
PROVIDERS: PCP Internal Medicine; Referring Provider Nurse Practitioner Adult Health; Visit Provider Nurse Practitioner Adult Health
DX: R14.0 Abdominal distension (gaseous) (principal)
CPT/HCPCS: 74246; 74248

== ENCOUNTER 2020-03-04 16:57 | Emergency (ER) | payer OTHER, SELFPAY ==
[2019-04-08 00:52] VITALS: BMI 31.2
[2020-03-04 16:58] VITALS: BP 132/95; PULSE 104; RESP 18; TEMP 36.9; O2SAT 97; BMI 32.8
--- NOTE | 2020-03-04 17:23 | EKG12_ITS ---
Test Reason : FEVER Blood Pressure : / mmHG Vent. Rate : 101 BPM Atrial Rate : 101 BPM P-R Int : 186 ms QRS Dur : 086 ms QT Int : 338 ms P-R-T Axes : 028 -33 030 degrees QTc Int : 438 ms Sinus tachycardia Left axis deviation T wave abnormality, consider anterior ischemia Abnormal ECG Confirmed by STEVE LOPEZ, CRISTINA ([id number]), social media editor HAL WOOD ([id number]) on 03/08/2020 1:36:19 PM Referred By: JON Confirmed By:CRISTINA WILSON MD
--- NOTE | 2020-03-04 17:28 | ED.DCSUM_ITS ---
- ER Visit Summary Date of Service: 03/04/20 Chief Complaint: [Fever] History of Present Illness: The patient is a 64 F presents to the emergency department complaint of a fever that started today after lunch. Her temperature went up to 102.4. Patient planes of chills and some mild shortness of breath. Patient developed a cough that started yesterday. Patient also had some lower back pain yesterday. She denies urinary symptoms. Patient states that she is status post aortic valve replacement on February [address] Neri in [place]. Patient states the cough is nonproductive. She denies any rashes. Patient tested negative for COVID 19 prior to her surgery. Patient with history of hypothyroidism as well as history of high cholesterol. Patient denies any sick contacts. [] Physical Examination: [HEENT-PERRLA, EOMI. Cranial nerves II through XII grossly intact. TMs clear. Mucous membranes moist. No adenopathy. Cardiovascular-regular rate and rhythm without murmur or ectopy Lungs-good aeration bilaterally. Patient has a faint rales in both bases. Some coarse breath sounds bilaterally. No accessory muscle use or retractions. Patient's sternal incision appears slightly erythematous superiorly. No purulent drainage noted. Abdomen-normoactive bowel sounds, soft, nontender, no rebound or rigidity, no peritoneal signs. Extremities-intact ?4, normal range of motion, normal pulses, atraumatic] Test Results: EKG obtained arrival shows sinus rhythm with a ventricular rate of 101 bpm with some nonspecific ST changes. CBC with it showing a 16.8, hemoglobin 8.6, hematocrit 28, platelets 214. Chemistries unremarkable. INR was 1.2 and PTT was 32. Urinalysis was significant for 500 leukocyte esterase as well as nitrites and greater than 100 WBCs as well as +3 bacteria. Troponin was less than 0.015. Lactate was elevated 3.0. Chest x-ray obtained showed atelectasis and/or possible infiltrate in the left lower lobe.] COVID-19 test pending Emergency Department Course and Treatment: Patient had blood cultures ordered. Urine culture ordered. Patient was started initially empirically on Levaquin 750 mg IV as well as vancomycin 1 g IV. Patient was given 30 cc/kg fluid bolus as she did have one blood pressure with a systolic in the 90s. [Case was discussed with patient's surgeon Dr. Neri and he was made aware of patient's condition and presenting complaint. Surgeon was comfortable with keeping the patient at our facility for treatment of the UTI however he recommended if patient continues to have persistent fever and not feeling well despite antibiotic treatment that he would recommend evaluation of the valve at that time.] Treatment Plan: [Transfer to [facility]. I discussed case with internal medicine physician here at [facility] who also spoke with cardiology and they have reservations about keeping the patient here should the patient seed her valve and our inability to obtain LAUREANO's here. I was asked to transfer patient back to [facility].] Disposition: [Transfer. Prior to transferring the patient while awaiting transfer to tertiary care center patient's blood pressure decreased into the 90s and 80s systolic. She is mentating normally. Patient states that her normal blood pressure is 88-100 systolic. Patient has had a total of 2 L of fluid. We discussed possibly placing a triple-lumen central line and starting pressors however patient does not want to proceed at this time prior to transfer. Understand that she is septic.] Impression: [UTI Severe sepsis Postop aortic valve replacement Anemia] This note was generated with [employer] dictation software. It may contain incorrect words, spelling, and punctuation that were not noted in review of the chart deonte or to signing ED Disposition - Plan for ED Patient: Referrals: Vangie Breaux MD [Primary Care Provider] -
[2020-03-04 18:08] LABS: Absolute Lymphocyte Count 0.46 X10^3/uL (0.83-4.51); Absolute Neutrophil Count 14.9 X10^3/uL (2.0-7.7); Basophil# 0.01 X10^3/uL; Basophil% 0.1 % (0-1); Hematocrit 28.4 % (37-47); Hemoglobin 8.6 g/dL (12.0-15.0); Lymphocyte # 0.46 X10^3/ul (4.0); Lymphocyte % 2.7 % (19-41); Mean Corp Hgb Conc 30.3 g/dL (32-36); Mean Corpuscular Hgb 33.3 pg (27.0-32.0); Mean Corpuscular Volume 110.1 fL (81-99); Mean Platelet Vol. 10.5 fl (6.2-12.0); Monocyte# 1.21 X10^3/uL; Monocyte% 7.2 % (0-10); NRBC Flagged by Analyzer 0.2 % (0-5); Neutrophil # 14.94 X10^3/uL (2.7-7.7); Neutrophil % 88.9 % (47-70); POSITIVE DIFFERENTIAL YES; Platelet Count 214 K/mm3 (150-450); RBC Distribution Width CV 16.3 % (11.6-14.6); RBC Distribution Width SD 61.8 fl (35.1-43.9); Red Blood Count 2.58 M/mm3 (4.2-5.4); White Blood Count 16.8 K/mm3 (4.4-11.0)
[2020-03-04 18:18] LABS: International Normalized Ratio 1.2; Prothrombin Time (Protime)PT. 14.9 SECONDS (11.7-14.9)
[2020-03-04] MEDS: levoFLOXacin IV 750 MG/150 ML BAG 100 MG IV (18:27)
[2020-03-04] MEDS: 0.9% Normal Saline 1,000 ML 150 ML IV (18:29)
[2020-03-04 18:31] VITALS: BP 117/46; PULSE 98; RESP 26; TEMP 37.8; O2SAT 97
[2020-03-04 18:31] LABS: Anion Gap 8 (5-15); BUN 18 mg/dL (7-18); BUN/Creat Ratio 19.4 RATIO (10-20); Calcium,Total 9.4 mg/dL (8.5-10.1); Chloride 100 mmol/L (98-107); Creatinine, Serum 0.93 mg/dL (0.55-1.02); EST Glomerular Filtration Rate 65 mL/min (>60); Est Glom Filt Rate - Afr Amer 78 mL/min (>60); Estimated Creatinine Clearance 57.33 ml/min; Glucose 162 mg/dL (74-106); Potassium 3.7 mmol/L (3.5-5.1); Sodium Level 139 mmol/L (136-145)
[2020-03-04 18:45] LABS: Mucous, Urine 0 SEEN /hpf (<or=2+); Squamous Epithelial Cells - UA 0 SEEN /hpf (5-10)
--- NOTE | 2020-03-04 18:45 | RAD_ITS ---
STUDY: X-RAY CHEST REASON FOR EXAM: Female, 64 years old. MITRAL VALVE REPLACEMENT ON 02/19. TODAY HAS 102 FEVER AT HOME, CHILLS, SOB. PALE SKIN COLOR TECHNIQUE: Single AP portable view of the chest. COMPARISON: None. FINDINGS: manager monitoring leads are present. The left hemidiaphragm is elevated. There may be left basilar atelectasis or infiltrate. The heart size is within normal limits. Status post median sternotomy. Normal mediastinum and jodi. Normal visualized pulmonary arteries. Normal visualized aortic arch and descending thoracic aorta. Normal visualized thoracic spine. There are degenerative changes of the shoulder joints. There is no demonstrated abnormality of the visualized soft tissue structures of the upper abdomen. RAD/Chest 1 View (Portable) IMPRESSION: Elevated left hemidiaphragm. There may be left basilar atelectasis or infiltrate. Status post median sternotomy. Degenerative changes of the shoulder joints. Electronically Signed: Ilia Sal MD at 19:09 EDT , Service support ,
[2020-03-04 18:46] LABS: Color, Urine Yellow (Yellow); Glucose, Dipstick 100 mg/dl (Normal); Ketone-Dipstick Negative (Negative); Leukocyte Esterase-Dipstick 500 /ul (Negative); Nitrite-Dipstick Positive (Negative); Occult Blood-Urine 250 /ul (Negative); Protein-Dipstick 100 mg/dl (Negative); Specific Gravity, Urine 1.015 (1.002-1.030); Urine Bilirubin Dipstick Negative (Negative); Urine Clarity Cloudy (Clear); Urine Urobilinogen Normal (Normal)
[2020-03-04 18:48] LABS: Differential Indicated SCAN CRITERIA MET
[2020-03-04 19:00] VITALS: BP 110/60; PULSE 107; RESP 20; TEMP 38.5; O2SAT 96
[2020-03-04 19:04] LABS: Bacteria 3+ /hpf (None Seen); Red Blood Cells-Urine 10-25 SEEN /hpf (0-5); White Blood Cells >100 SEEN /hpf (0-5)
[2020-03-04 19:04] LABS: Anisocytosis RARE; Platelet Estimate ADEQUATE (ADEQ); Red Cell Morphology N CHROM NORMAL (NORM C&C)
[2020-03-04 19:05] LABS: Macrocytosis RARE
[2020-03-04] MEDS: 0.9% Normal Saline 1,000 ML 999 ML IV (19:36)
[2020-03-04] MEDS: Acetaminophen 325 MG Tablet 650 MG PO (20:04)
[2020-03-04 20:25] LABS: Probe Check PASS; Specimen Processing Control PASS
[2020-03-04] MEDS: Vancomycin IV 1,000 MG/200 ML BAG 200 MG IV (20:37)
[2020-03-04 20:38] VITALS: BP 91/51; PULSE 101; PULSE 102; RESP 24; RESP 29; TEMP 37.8; O2SAT 94
--- NOTE | 2020-03-04 20:47 | ED.RN ---
pt's bp is slowly declining. current bp is 90/51, dr zhang made aware and 500ml bolus ordered.
[2020-03-04 21:11] VITALS: BP 85/50; PULSE 92; RESP 20; TEMP 37.7; O2SAT 98
[2020-03-04 21:25] VITALS: BP 86/43; PULSE 93; RESP 21; TEMP 37.7; O2SAT 97
[2020-03-04 22:01] LABS: Reflex Lactate? Y
== END 2020-03-04 21:30 | disposition short-term general hospital (02) ==
LOC: ED 19:50
PROVIDERS: Emergency Provider Emergency Medicine; PCP Internal Medicine
DX: N39.0 Urinary tract infection, site not specified (principal); R65.20 Severe sepsis without septic shock; D64.9 Anemia, unspecified; E03.9 Hypothyroidism, unspecified; E78.00 Pure hypercholesterolemia, unspecified; Z95.2 Presence of prosthetic heart valve; Z79.82 Long term (current) use of aspirin
CPT/HCPCS: 71045; 80048; 81001; 83605; 84484; 85025; 85610; 85730; 87040; 87635; 93005; 96365; 96366; 96375; 99285; G2023; J7030; J7040; J7050; A4216; U0003

== ENCOUNTER → 2020-04-15 07:56 | Outpatient (CLI) | payer OTHER, SELFPAY ==
--- NOTE | 2020-04-15 08:03 | CR.ITP_ITS ---
Diagnosis - General Information Admitting Diagnosis: S/P AVR @ [facility] BY DR. 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 Maintain the individual as the primary focus of care. 2. To improve the patient's quality of life. 3. Identification of cardiac risk factors and provide cardiac risk factor management. 4. Enhance the psychosocial status of the patient. 5. Reconditioning enough to allow the patient to resume customary activities. 6. Control symptoms of cardiac disease Personal Goals: Initial Assessment: Improve energy level, Participate in home exercise program, Get back to work, or to resume activities faster, Improve knowledge of cardiac disease, Improve muscle strength and endurance, Improve diet and eating habits (eat healthier), Control risk factors (learn risk factor modification) Scale for measuring improvement of personal goals: Enter appropriate number in Comments. 2 = Unchanged. 3 = Slightly Better. 4 = Moderate Improvement. 5 = Met my Goal - Diagnosis & Disease Process Outcomes/Goals: Pt IDs own risk factors & lifestyle modifications by Session 10, Verbalizes symptoms of angina & response by session 3., Pt independently manages Plan/Interventions: Assist Pt to ID & engage in lifestyle modification to reduce CVD risk, Instruct on individual risk factors, Review symptoms of angina & emergency actions, Review secondary diagnosis & identify educational needs. - Safety Referral to Physical Therapy: No Referral to [facility] Case Management: No Fall Risk Assessed:: Yes Assistive Devices:: None Exercise - Initial Assessment - Visit Date of Eval: 04/15/20 Session #:: 0 - INITIAL EVALUATION Mets: Pre-: >5 METS for 30 minutes by discharge - Physician Prescribed Exercise Modalities: Treadmill, Airdyne, NuStep, SciFit Frequency: 3x/week for 12 weeks [36 sessions] Intensity: 60-80% of age predicted maximum heart rate reserve Current METSs:: 3.0 Target Heart Rate:: 101-132 Resting Blood Pressure: 100/68 EKG Type: SINUS BRADYCARDIA otherwise normal - Outcomes & Goals Goals:: Verbalizes understanding of THR, RPE & goal METS by session 6, Documents in home exercise log/reports 30 min aerobic 5 day/wk by DC, Demonstrates accurate pulse taking by DC - Intervention & Plan Exercise Program Goals: Instruct on personal THR & RPE, Instruct on MET level & personal MET goal, Show patient to take own pulse /validate performance until accurate, Instruct on home exercise - Physical Activity Home Exercise Physical Activity - Home Exercise: Safe Exercise, Warm-up, Self-monitoring, Cool-Down, Home Exercise > 30 min Daily, Sitting Time <3 hours/daily - Outcomes & Goals Outcomes/Goals: Demonstrates correct Warm-up/exercise Cool-Down (S3) if = 2.5 METs, Verbalizes symptoms of exercise intolerance by Session 3 (S3), Demonstrate safe equipment use (S3) & follows exercise prescrition (6) - Intervention & Plan Plan/Intervention: Instruct warm-up & cool-down if exercising at > 2 METs, Instruct on symptoms of exercise intolerance & actions to take, Instruct & monitor on saf, Assess intial functional capacity & safety risk Nutrition - Initial Assessment - Program Goals Nutrition Program Goals: LDL <100 optimal. 100 - 129 Near optimal. 130 - 159 Borderline High. 160 - 189 High. Total Cholesterol <200 desirable. 200 - 239 Borderline High. >/= 240 High. HDL < 40 Low >/=60 High. Triglycerides <150 desirable. <199 optimal. VlDL 5 - 40. HgbA1C <7%. BMI <25 Patient has diagnosis of Hyperlipidemia (ICD E78)?: Yes - Visit Date of Assessment:: 04/15/20 Session #:: 0 - initial evaluation pre-cardiac rehab - Cholesterol/Lipids Triglycerides (mg/dL): 0 - unavailable Determine presence & major risk factors that modify LDL goal: Hypertension or hypertensive medication, Family history of premature CHD in Male < 55 years: female <65 yearsFa, Age men > 45 years; women >/= 55 years Outcomes/Goals: Pt IDs own risk factors & lifestyle modifications by Session 10, Verbalizes symptoms of angina & response by session 3., Pt independently manages Intervention/Plan: Instruct on personal lipid levels & lipid goals/NCEP guidelines, Instruct on cholesterol Referral to dietitian:: Yes - Diabetes (Other Core Measures) Diabetes Type: Not Applicable - Weight Mgt (Other Care) Not Applicable: No Height: 4 ft 5 in Weight:: 134 lb BMI: 33.5 Diagnosis Overweight/Obesity BMI> 30% ICD-10 E66: Yes Diagnosis High BMI/Morbid Obesity BMI> 35% ICD-10 Z68: No Outcomes/Goals: Pt sets, maintains & shows weight loss goal & trend during rehab Intervention/Plan: Instruct on ideal BMI & set weight loss goal w/patient, Assist pt to ID & incorporate diet changes for weight loss by S9, Refer to Structured Weight Loss program as appropriate, Encourage goal of using 250- 300dcal per session for weight loss - Healthy Eating Habits Will attend diet classes:: Yes Outcomes/Goals:: Consume diet rich in vegs,fruits,whole grain/high fiber,fish,lean meat, Limit sat/trans fats,cholesterol & added salts & sugars Intervention/Plan:: Assess current eating habits - Education Gave educational materials for:: Healthy eating Medical - Initial Assessment - Visit Date of Eval: 04/15/20 Session #:: 0 - initial evaluation pre-cardiac rehab - Medication Compliance Preventative Medication(s):: Aspirin, Statin/lipid, Beta akash H/O mental health issues: depression, anxiety, or addiction?: No Doesn?t believe in the benefits of treatment?: No Believes medications are unnecessary or harmful?: No Has a concern about medication side effects?: No Expresses concern over the cost of medications?: No Outcomes/Goals: Verbalizes medications,desired effect & common side effects @ DC, Pt self-reports following medication regimen, Keeps card in wallet w/medications listed by DC Interventions/plans: Instruct on medication effects & side effects, Review medication list w/patient every two weeks, Instruct importance of taking meds as ordered & assist problem solving - Tobacco Use Tobacco Use: Non-smoker - Hypertension Hypertension Diagnosis:: Hypertension ICD-10 I10 Resting Blood Pressure:: 100/68 [place] [employer] Hypertension Guidelines: [place] [employer] Hypertension Guidelines. Normal BP Less than 120/80. Elevated BP 120/80. Hypertension Stage 1: BP 130-139/80-89. Hypertesnion Stage 2: BP 140 or higher/90 or higher. Hypertension Crisis: BP higher than 180/120 Outcomes/Goals: Able to verbalize/achieve optimal blood pressure <130/80, Incorporates diet changes & exercise for blood pressure control by DC Interventions/plan: Instruct on optimal blood pressure, hypertension & medications, Instruct on effects of sodium, alcohol, stress, exercise &hypertension - Tobacco Cessation Referral Smoking Cessation Referral:: No Individual Education/Counseling:: No Education Schedule Given:: Yes Psychosocial - Initial Assess - VIsit Date of Eval: 04/15/20 Session #:: 0 - initial evaluation pre-cardiac rehab Not Applicable: Yes History of previous Mental disease:: No - Target Goals Target Goals: Assess presence or absence of depression. Using a valid screening tool, maximizes coping skills. Positive support system - Psychosocial Test Tool Used:: [employer] Power QOL Cardiac, PHQ-9 Questionnaire phq-9 Severity: Severity. 1-4 Minimal Depression. 5-9 Mild Depression. 10-14 Moderate Depression. 15-19 Moderately Sever Depression. 20-27 Severe Depression. Rule: - Referral to Behavioral Health PS - Interventions: Yes Attend Stress Management Classes, No Referral to [facility] - Outcomes/Goals: See list Psychosocial Outcomes/Goals:: ID's personal stressors & 2 strategies to manage stress by discharge - Intervention/Plan: See List Interventions/Plan:: Assess stressors,coping strategies & signs of derpression on admission, Instruct/assist pt to develop coping & personal stress Mgt strateg ies, Instruct patient to recognize signs & symptoms of depression, Instruct patient to recog Patient Health Questionnaire Initial Assessment 1. Little interest or pleasure in doing things: Not at all 2. Feeling down, depressed, or hopeless: Not at all 3. Trouble falling or staying asleep, or sleeping too much: Several days 4. Feeling tired or having little energy: Several days 5. Poor appetite or overeating: Several days 6. Feeling bad about yourself -- or that you are a failure or have let yourself or your family down: Not at all 7. Trouble concentrating on things, such as reading the newspaper or watching television: Not at all 8. Moving or speaking so slowly that other people could have noticed. Or the opposite - being so fidgety or restless that you have been moving around a lot more than usual: Not at all 9. Thoughts that you would be better off , or of hurting yourself in some way: Not at all How difficult have these problems made it for you to do your work, take care of things at home, or get along with other people?: Somewhat difficult Total Score: 3 KATIUSKA-Q SV Test - Statements CAD is a disease of the arteries in the heart: False Examples of risk factors for heart disease: True Angina is chest pain or discomfort: I Don't Know The benefits of resistance training include: True Eating more meat and dairy products: False Anti-platelet medications such as aspirin are important: True The only effective way to manage stress: False An exercise warm-up slowly increases heart rate: True Prepared, processed foods usually have high sodium: True Depression is common after a heart attack: True The statin medications lower cholesterol: True To control blood pressure, lower the amount of sodium: True If someone gets chest discomfort during walking: False Transfats are partially hydrogenated vegetable oils: True Sleep apnea that is not treated increases the risk: True To control cholesterol, one should become a vegetarian: False Someone knows if he/she is exercising at the right level: True Diabetes cannot be prevented with exercise & health eating: False Stress is a large risk for heart attack: True A diet that can help lower blood pressure is rich in: True - Total Score Total Correct Responses: 18 Self-Efficacy Initial Assessment We would like to know how confident you are in doing certain activities. Please select your confidence level for:: Select your confidence level for the following using the scale 1-10 where 1 is not at all confident and 10 is totally confident. Your score is the average of all 6 responses. Fatigue: How confident are you that you can keep the fatigue caused by your disease from interfering with the things you want to do? Select Number: 7 Physical Discomfort or Pain: How confident are you that you can keep the physical discomfort or pain of your disease from interfering with the things you want to do? Select Number: 8 Emotional Distress: How confident are you that you can keep the emotional distress caused by your disease from interfering with the things you want to do? Select Number: 9 Other Symptoms or Health Problems: How confident are you that you can keep other symptoms or health problems from interfering with the things you want to do? Select Number: 8 Different Tasks and Activities: How confident are you that you can do the different tasks and activities needed to manage your health condition so as to reduce your need to see a doctor? Select Number: 9 Medication: How confident are you that you can do things other than just taking medication to reduce how much your illness affects your everyday life? Select Number: 8 Total Score:: 8 Nutrition Survey - Nutrition Survey Instructions Scoring Instructions: Scoring is as follows: Yes = 1 points. No = 0 point. Patient score that is >/=12 is considered to be at potential nutritional risk and could benefit from a referral to a registered dietitian. - Nutrition Survey Initial Have you lost >10 lbs over the past 2 months without trying?: No Are you following a special diet at home for diabetes, low fat, or low salt?: No Are you interested in meeting with a dietitian for help understanding your diet?: Yes Do you eat less than 3 meals a day?: No Do you eat fatty meats (ozuna, sausage, ribs, etc), fried foods, desserts, large amounts of salad dressings, margarine, butter, or cheese most days?: No Do you have food allergies? [Enter types in comment field]: No Do you eat in restaurants more than 3 times a week?: No Do you season food with salt, seasoning salt, or garlic salt?: Yes Do you used canned, boxed, frozen meals, or soups, seasoning packets?: No Total Score:: 2
--- NOTE | 2020-04-15 08:04 | CR.HP_ITS ---
CR - History & Physical - General Arrival date:: 04/15/20 Arrival time:: 08:12 Date of Referral:: 04/09/20 Date of CR Evaluation:: 04/15/20 Referring Physician: DR. MCQUEEN-SURGEON / DR. 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 Primary Diagnosis: S/P AVR - History of Present Cardiac Event Onset Date: Enter Onset Date of cardiac illnesses in Comment field below Heart valve replacement or repair:: Yes - S/P AVR @ [facility] 02/20/2020 - Medications Home Medications: Ambulatory Orders Medication Instructions Recorded Azelastine HCl [Astelin] 2 spray NASAL QHS 01/19/16 Fluticasone 0.05% [Flonase Nasal 2 spray NASAL DAILY 01/19/16 [place]] Levothyroxine [Synthroid] 150 mcg PO DAILY 01/19/16 Pravastatin [Pravachol] 20 mg PO QHS 01/19/16 Ipratropium [place] 0.06% 2 spray NASAL 4X/DAY 05/21/17 [ATROVENT NASAL SPRAY] Latanoprost 0.005% [Xalatan 1 drop RIGHT EYE QHS 07/24/17 Opthalmic] Multivitamins,Therapeutic 1 tab PO DAILY 07/24/17 [Multivitamin] Naphazoline HCl/Phenir Mal 1 drp EACH EYE TID PRN PRN 04/07/19 [Naphcon-A Eye Drops] Alendronate Sodium [Fosamax] 70 mg PO DOWLING 03/04/20 Ascorbic Acid [Vitamin C] 500 mg PO DAILY 03/04/20 Aspirin E.C. [Ecotrin] 162 mg PO DAILY@0800 03/04/20 Calcium Carbonate/Vitamin D3 1 tab PO DAILY 03/04/20 [Calcium 600 + Vit D Tablet] Ferrous Sulfate 325 mg PO DAILY 03/04/20 Folic Acid 1 mg PO DAILY 03/04/20 Gabapentin [Neurontin] 200 mg PO BID 03/04/20 Magnesium Oxide [Mag-Ox 400] 400 mg PO DAILY 03/04/20 Metoprolol Succinate [Toprol Xl] 25 mg PO DAILY 03/04/20 Pantoprazole Sodium [Protonix] 40 mg PO DAILY 03/04/20 Potassium Chloride [Klor-Con M20] 20 meq PO TID 03/04/20 Sennosides/Docusate Sodium [Senna 1 tab PO BID PRN PRN 03/04/20 Plus 8.6-50 mg Tablet] Tramadol HCl [Ultram] 50 mg PO Q6H PRN PRN 03/04/20 Alendronate Sodium [Fosamax] 70 mg PO Q7D@0700 04/15/20 Bumetanide 2 mg PO 04/15/20 - Allergies Allergies/Adverse Reactions: Allergies amoxicillin Allergy (Verified 05/21/17 15:04) Rash - Sleep Disorder Evaluation Hx of Sleep Apnea: Yes Do you snore loudly (louder than talking or can be heard through closed doors)?: Yes - HAS HOME CPAP UNIT History of Hypertension (for STOP score): Yes Advanced Directives - Advanced Directives Power of First Aid Nurse: Yes Living Will: Yes Advance Directives Information Provided: No Advance Directives on File: Yes - should have it DNR Order?:: No - MOLST See MOLST form: No Past Medical History - Past Medical Illness Medical History: Past Medical History (Last Updated 04/15/20 @ 08:21 by Salo Haywood, HUSAM, [employer], BS) APONEUROPATHY RIGHT HAND COCHLEAR IMPLANT LEFT EAR Diverticulitis K57.92 Glaucoma H40.9 Goiter E04.9 Internal hemorrhoids without complication K64.8 LEFT HAND SURGERY DUPUYTREN'S CONTRACTUR Osteopenia M85.80 REMOVAL BILATERAL CATARACTS Seborrheic keratoses L82.1 Shingles B02.9 Gilbert's syndrome, unspecified Q96.9 Chronic left shoulder pain M25.512, G89.29 Chronic rhinitis J31.0 Hypertension I10 - Past Surgical History Surgical History: Past Surgical History (Last Updated 04/15/20 @ 08:20 by Salo Haywood, HUSAM, [employer], BS) H/O right heart catheterization Z98.890 S/P AVR (aortic valve replacement) Z95.2 Surgical History: cataract, - - The patient has a history of right hand surgery. She underwent surgery for Dupuytren's contracture of the left hand. She has had bilateral cataract surgery. She is also undergone surgery as described above. 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 - Hobbies, Recreation, Social Activities Hobbies: Walking, None Recreational Activities: I am able to engage in most, but not all activities Social Environment - Status Marital Status: Single - Current Living Arrangements Living Environment:: Alone - Children Do any of your children live nearby?: No - Safety Do you feel safe in your surroundings?: Yes - Assistance Do you need any assistance at home?: NO Review of Systems - Review of Systems Hints: Right click = Denies ([place]). Left click = Reports ([place]) Review of Present Symptoms: Reports: Shortness of Breath with Exertion - sometimes when walking but has improved since the surgery, Wound Healing, Fatigue, Appetite - Normal, Appetite - Special Diet - low fat, low cholesterol, low sodium. Denies: Shortness of Breath at Rest, Operative Discomfort, Dizziness/Lightheadedness - Pain Is Patient Pain Free?: Yes Pain Location: none Pain Level: 0/10 Risk Factor Assessment - Chief Complaint Chief Complaint: S/P AVR - Vital Signs Temperature: 97.3 F Respiratory Rate: 16 Pulse Ox: 98 Blood Pressure: 100/68 - Pulse Pulse Rate: 91 Pulse Rhythm: Regular - Hypertension Blood Pressure Sitting - Right Arm: 100/68 - Blood Cholesterol/Lipids Total Cholesterol (mg/dL) Goal = less than 200 mg/dL: 0 - recent labs unavailable - Obesity Height: 4 ft 5 in Weight:: 134 lb Weight in Pounds: 134.0 lbs Weight Source: Standing Scale Body Mass Index (BMI): 33.5 Nutritional Referral for Obesity: Yes - Why Weight Program - Physical Inactivity Physical Inactivity: Recreational activity, None - Risk Stratification Risk Guidelines: Lowest Risk: Risk Factor for Smoking, Risk Factor for Diabetes, Risk Factor for Hypertension, Risk Factor for Sedentary Lifestyle - low to moderate, Risk Factor for Depression, Moderate Risk: Risk Factor for Sedentary Lifestyle, Highest Risk: Risk Factor for Obesity - For Smoking Smoking Risk Guidelines: Smoking Low Risk: None or quit greater than 6 months ago. Smoking Moderate Risk: Smoker or quit 6 months or less ago. Smoking High Risk: Smoker - For Dyslipidemia Dyslipidemia Risk Guidelines: Low Risk: Moderate Risk: High Risk: 15-25% fat 25.1-29% fat >/= 30% fat. <7% sat fat 7-9% sat fat >9% sat fat. <150 mg chol 150-299 mg chol >/= 300 mg chol. LDL <100 LDL 100-129 LDL >/= 130. Chol/HDL ratio <5.0 Chol/HDL ratio 5.0-6.0 Chol/HDL ratio >6.0. Triglycerides <100 Triglycerides 100- 149 Triglycerides >/= 150 - For Diabetes Mellitus Diabetes Risk Guidelines: Diabetes Low Risk: HgA1c <6.5% and/or FBG <120. Diabetes Moderate Risk: HgA1c 6.6-7.9% and/or FBG 120-180. Diabetes High Risk: HgA1c >/= 8% and/or FBG >180 - For Obesity/Overweight Obesity/Overweight Risk Guidelines: Obesity Low Risk: BMI <25.0. Obesity Moderate Risk: BMI 25-29.9. Obesity High Risk: BMI >/= 30.0 - For Hypertension Hypertension Risk Guidelines: Hypertension Low Risk: Systolic <120 and Diastolic <80. Hypertension Moderate Risk: Systolic 120-139 and Diastolic 80-89. Hypertension High Risk: Systolic >/= 140 and Diastolic >/= 90 - For Sedentary Lifestyle Sedentary Lifestyle Risk Guidelines: Sedentary Lifestyle Low Risk: >/= 1,500 kcal/week. Sedentary Lifestyle Moderate Risk: 700-1,499 kcal/week. Sedentary Lifestyle High Risk: < 700 kcal/week - For Depression Depression Risk Guidelines: Depression Low Risk: Not clinically depressed. Depression Moderate Risk: Mildly depressed. Depression High Risk: Clinically depressed Motivation - Motivation to Participate On a scale of 1 to 10, how prepared are you to commit to attending program?: 9 What do you see as barriers to successfully being able to complete the program?: no What do you see as the benefits of succesfully completing the program? In other words, what do you hope to get out of participating in the program?: healthier, get more energy Are there issues you are dealing with that will interfere with completing the program?: no Do you have a spouse or signficant other, family or friends who will help support you to complete the program?: yes
[2020-04-15 08:35] VITALS: BP 100/68; PULSE 91; RESP 16; TEMP 36.3; O2SAT 98; BMI 33.5
[2020-04-15 09:08] VITALS: BP 100/68; BMI 33.5
== END ==
PROVIDERS: PCP Internal Medicine; Referring Provider Thoracic Surgery (Cardiothoracic Vascular Surgery); Visit Provider Thoracic Surgery (Cardiothoracic Vascular Surgery)
DX: E03.9 Hypothyroidism, unspecified (principal); E78.5 Hyperlipidemia, unspecified; I10 Essential (primary) hypertension; Z68.33 Body mass index [BMI] 33.0-33.9, adult

== ENCOUNTER 2020-04-30 10:15 | Outpatient (RCR) | payer OTHER, SELFPAY ==
[2020-04-15 08:35] VITALS: BMI 33.5
[2020-04-15 09:08] VITALS: BMI 33.5
== END 2020-04-30 23:59 ==
LOC: CR 10:15
PROVIDERS: PCP Internal Medicine; Referring Provider Thoracic Surgery (Cardiothoracic Vascular Surgery); Visit Provider Thoracic Surgery (Cardiothoracic Vascular Surgery)
DX: Z95.2 Presence of prosthetic heart valve (principal)
CPT/HCPCS: 93798

== ENCOUNTER 2020-05-19 10:54 | Outpatient (RCR) | payer OTHER, SELFPAY ==
[2020-04-15 08:35] VITALS: BMI 33.5
[2020-04-15 09:08] VITALS: BMI 33.5
[2020-05-06 09:27] VITALS: BMI 34.0
== END 2020-05-19 23:59 | disposition home or self-care (01) ==
LOC: NS 10:54
PROVIDERS: PCP Internal Medicine; Visit Provider Internal Medicine
DX: Z71.3 Dietary counseling and surveillance (principal); Z68.33 Body mass index [BMI] 33.0-33.9, adult; I10 Essential (primary) hypertension; E78.5 Hyperlipidemia, unspecified; E03.9 Hypothyroidism, unspecified
CPT/HCPCS: 97802

== ENCOUNTER 2020-05-31 10:15 | Outpatient (RCR) | payer OTHER, SELFPAY ==
[2020-04-15 08:35] VITALS: BMI 33.5
[2020-04-15 09:08] VITALS: BMI 33.5
--- NOTE | 2020-05-06 09:19 | PCM.CR.ITP ---
Exercise - 30-day Assessment - Visit Date of Eval: 05/06/20 Session #:: 8 - Physician Prescribed Exercise Modalities: Treadmill, NuStep, SciFit Frequency: 3x/week for 12 weeks [36 sessions] Intensity: 60-80% of age predicted maximum heart rate reserve Current METSs:: 3.5 Target Heart Rate:: 101-132 Current RPE:: 12 Maximum Excercise HR:: 92 Resting Blood Pressure: 104/50 Maximum Exercise Blood Pressure: 110/60 EKG Type: NSR with isolated PVCs. - Outcomes & Goals Goals:: Verbalizes understanding of THR, RPE & goal METS by session 6, Documents in home exercise log/reports 30 min aerobic 5 day/wk by DC, Demonstrates accurate pulse taking by DC - Intervention & Plan Exercise Program Goals: Instruct on personal THR & RPE, Instruct on MET level & personal MET goal, Show patient to take own pulse /validate performance until accurate, Instruct on home exercise - 30-day Reassessments 30 day Reassessments:: Progressing - Physical Activity Home Exercise Physical Activity - Home Exercise: Safe Exercise, Warm-up, Self-monitoring, Cool-Down, Home Exercise > 30 min Daily, Sitting Time <3 hours/daily - Outcomes & Goals Outcomes/Goals: Demonstrates correct Warm-up/exercise Cool-Down (S3) if = 2.5 METs, Verbalizes symptoms of exercise intolerance by Session 3 (S3), Demonstrate safe equipment use (S3) & follows exercise prescrition (6) - Intervention & Plan Plan/Intervention: Instruct warm-up & cool-down if exercising at > 2 METs, Instruct on symptoms of exercise intolerance & actions to take, Instruct & monitor on saf, Assess intial functional capacity & safety risk - 30-day Reassessments 30 day Reassessments:: Progressing Nutrition - 30-Day Assessment - Program Goals Nutrition Program Goals: LDL <100 optimal. 100 - 129 Near optimal. 130 - 159 Borderline High. 160 - 189 High. Total Cholesterol <200 desirable. 200 - 239 Borderline High. >/= 240 High. HDL < 40 Low >/=60 High. Triglycerides <150 desirable. <199 optimal. VlDL 5 - 40. HgbA1C <7%. BMI <25 Patient has diagnosis of Hyperlipidemia (ICD E78)?: Yes - Visit Date of Assessment:: 05/06/20 Session #:: 8 - Cholesterol/Lipids Determine presence & major risk factors that modify LDL goal: Hypertension or hypertensive medication Outcomes/Goals: Pt IDs own risk factors & lifestyle modifications by Session 10, Verbalizes symptoms of angina & response by session 3., Pt independently manages Intervention/Plan: Instruct on personal lipid levels & lipid goals/NCEP guidelines, Instruct on cholesterol Referral to dietitian:: No - appt scheduled 05/19/2020 @ 11:00 30-day Reassessments:: Progressing - Diabetes (Other Core Measures) Diabetes Type: Not Applicable - Weight Mgt (Other Care) Not Applicable: Yes Height: 4 ft 5 in Weight:: 136 lb BMI: 34.0 Diagnosis Overweight/Obesity BMI> 30% ICD-10 E66: Yes Diagnosis High BMI/Morbid Obesity BMI> 35% ICD-10 Z68: No Outcomes/Goals: Pt sets, maintains & shows weight loss goal & trend during rehab Intervention/Plan: Instruct on ideal BMI & set weight loss goal w/patient, Assist pt to ID & incorporate diet changes for weight loss by S9, Encourage goal of using 250-300dcal per session for weight loss 30 day Reassessments:: Progressing - Healthy Eating Habits Outcomes/Goals:: Consume diet rich in vegs,fruits,whole grain/high fiber,fish,lean meat, Limit sat/trans fats,cholesterol & added salts & sugars Intervention/Plan:: Assess current eating habits 30-day Reassessments:: Progressing - Education Gave educational materials for:: Healthy eating Medical- 30-Day Assessment - Visit Date of Eval: 05/06/20 Session #:: 8 - Medication Compliance Preventative Medication(s):: Aspirin, Statin/lipid, Beta akash H/O mental health issues: depression, anxiety, or addiction?: No Believes medications are unnecessary or harmful?: No Expresses concern over the cost of medications?: No Outcomes/Goals: Verbalizes medications,desired effect & common side effects @ DC, Pt self-reports following medication regimen, Keeps card in wallet w/medications listed by DC Interventions/plans: Instruct on medication effects & side effects, Review medication list w/patient every two weeks, Instruct importance of taking meds as ordered & assist problem solving 30-day Reassessments:: Progressing - Tobacco Use Tobacco Use: Non-smoker - Hypertension Hypertension Diagnosis:: Hypertension ICD-10 I10 Resting Blood Pressure:: 104/50 - controlled [employer] Hypertension Guidelines: [place] [employer] Hypertension Guidelines. Normal BP Less than 120/80. Elevated BP 120/80. Hypertension Stage 1: BP 130-139/80-89. Hypertesnion Stage 2: BP 140 or higher/90 or higher. Hypertension Crisis: BP higher than 180/120 Outcomes/Goals: Able to verbalize/achieve optimal blood pressure <130/80, Incorporates diet changes & exercise for blood pressure control by DC Interventions/plan: Instruct on effects of sodium, alcohol, stress, exercise &hypertension 30 day Reassessments:: Met - Tobacco Cessation Referral Smoking Cessation Referral:: No Individual Education/Counseling:: No Education Schedule Given:: Yes Psychosocial - 30-Day Assess - VIsit Date of Eval: 05/06/20 Session #:: 8 Not Applicable: No History of previous Mental disease:: No - Target Goals Target Goals: Assess presence or absence of depression. Using a valid screening tool, maximizes coping skills. Positive support system - Psychosocial Test Tool Used:: Aj Carranza QOL Cardiac, PHQ-9 Questionnaire phq-9 Severity: Severity. 1-4 Minimal Depression. 5-9 Mild Depression. 10-14 Moderate Depression. 15-19 Moderately Sever Depression. 20-27 Severe Depression. Rule: - Referral to Behavioral Health PS - Interventions: Yes Attend Stress Management Classes, No Referral to Behavioral Health if PHQ-9 score >9:, No Referral to [facility], No Referral to Physician if PHQ-9 if score is 5-9: - Outcomes/Goals: See list Psychosocial Outcomes/Goals:: ID's personal stressors & 2 strategies to manage stress by discharge - Intervention/Plan: See List Interventions/Plan:: Assess stressors,coping strategies & signs of derpression on admission, Instruct/assist pt to develop coping & personal stress Mgt strategies, Instruct patient to recognize signs & symptoms of depression, Instruct patient to recog - 30-day Reassessments: 30 day Reassessments:: Progressing Patient Health Questionnaire 30-Day Re-eval Assessment 1. Little interest or pleasure in doing things: Not at all 2. Feeling down, depressed, or hopeless: Not at all 3. Trouble falling or staying asleep, or sleeping too much: Several days 4. Feeling tired or having little energy: Several days 5. Poor appetite or overeating: Several days 6. Feeling bad about yourself -- or that you are a failure or have let yourself or your family down: Not at all 7. Trouble concentrating on things, such as reading the newspaper or watching television: Not at all 8. Moving or speaking so slowly that other people could have noticed. Or the opposite - being so fidgety or restless that you have been moving around a lot more than usual: Not at all 9. Thoughts that you would be better off , or of hurting yourself in some way: Not at all Total Score: 3 Self-Efficacy 30-Day Re-eval Assessment We would like to know how confident you are in doing certain activities. Please select your confidence level for:: Select your confidence level for the following using the scale 1-10 where 1 is not at all confident and 10 is totally confident. Your score is the average of all 6 responses. Fatigue: How confident are you that you can keep the fatigue caused by your disease from interfering with the things you want to do? Select Number: 8 Physical Discomfort or Pain: How confident are you that you can keep the physical discomfort or pain of your disease from interfering with the things you want to do? Select Number: 8 Emotional Distress: How confident are you that you can keep the emotional distress caused by your disease from interfering with the things you want to do? Select Number: 9 Other Symptoms or Health Problems: How confident are you that you can keep other symptoms or health problems from interfering with the things you want to do? Select Number: 9 Different Tasks and Activities: How confident are you that you can do the different tasks and activities needed to manage your health condition so as to reduce your need to see a doctor? Select Number: 9 Medication: How confident are you that you can do things other than just taking medication to reduce how much your illness affects your everyday life? Select Number: 8 Total Score:: 8
[2020-05-06 09:27] VITALS: BP 104/50; BMI 34.0
== END 2020-05-31 23:59 ==
LOC: CR 10:15
PROVIDERS: PCP Internal Medicine; Referring Provider Thoracic Surgery (Cardiothoracic Vascular Surgery); Visit Provider Thoracic Surgery (Cardiothoracic Vascular Surgery)
DX: Z95.2 Presence of prosthetic heart valve (principal)
CPT/HCPCS: 93798

== ENCOUNTER 2020-06-09 15:41 | Outpatient (RCR) | payer MEDICARE, SELFPAY ==
[2020-04-15 08:35] VITALS: BMI 33.5
[2020-05-06 09:27] VITALS: BMI 34.0
== END 2020-06-30 23:59 ==
LOC: NS 15:41
PROVIDERS: PCP Internal Medicine; Visit Provider Internal Medicine
DX: Z71.3 Dietary counseling and surveillance (principal); E66.9 Obesity, unspecified; Z68.33 Body mass index [BMI] 33.0-33.9, adult; I10 Essential (primary) hypertension; E78.5 Hyperlipidemia, unspecified; E03.9 Hypothyroidism, unspecified

== ENCOUNTER 2020-06-28 15:15 | Outpatient (RCR) | payer MEDICARE, SELFPAY ==
[2020-04-15 08:35] VITALS: BMI 33.5
[2020-05-06 09:27] VITALS: BMI 34.0
[2020-06-01 00:41] VITALS: BP 104/50
--- NOTE | 2020-06-14 15:06 | CR.ITP_ITS ---
Exercise - 60-day Assessment - Visit Date of Eval: 06/14/20 Session #:: 23 - Physician Prescribed Exercise Modalities: Treadmill, NuStep, SciFit Frequency: 3x/week for 12 weeks [36 sessions] Intensity: 60-80% of age predicted maximum heart rate reserve Current METSs:: 3.3 increase from 3.0 Target Heart Rate:: 101-132 Target RPE 12-16:: Current RPE:: 12 Maximum Excercise HR:: 99 Resting Blood Pressure: 104/60 Maximum Exercise Blood Pressure: 120/78 EKG Type: NSR without ectopy. - Outcomes & Goals Goals:: Verbalizes understanding of THR, RPE & goal METS by session 6, Documents in home exercise log/reports 30 min aerobic 5 day/wk by DC, Demonstrates accurate pulse taking by DC - Intervention & Plan Exercise Program Goals: Instruct on personal THR & RPE, Instruct on MET level & personal MET goal, Show patient to take own pulse /validate performance until accurate, Instruct on home exercise - 30-day Reassessments 30 day Reassessments:: Progressing - Physical Activity Home Exercise Physical Activity - Home Exercise: Safe Exercise, Warm-up, Self-monitoring, Cool-Down, Home Exercise > 30 min Daily, Sitting Time <3 hours/daily - Outcomes & Goals Outcomes/Goals: Demonstrates correct Warm-up/exercise Cool-Down (S3) if = 2.5 METs, Verbalizes symptoms of exercise intolerance by Session 3 (S3), Demonstrate safe equipment use (S3) & follows exercise prescrition (6) - Intervention & Plan Plan/Intervention: Instruct warm-up & cool-down if exercising at > 2 METs, Instruct on symptoms of exercise intolerance & actions to take, Instruct & monitor on saf, Assess intial functional capacity & safety risk - 30-day Reassessments 30 day Reassessments:: Progressing Nutrition - 60-Day Assessment - Program Goals Nutrition Program Goals: LDL <100 optimal. 100 - 129 Near optimal. 130 - 159 Borderline High. 160 - 189 High. Total Cholesterol <200 desirable. 200 - 239 Borderline High. >/= 240 High. HDL < 40 Low >/=60 High. Triglycerides <150 desirable. <199 optimal. VlDL 5 - 40. HgbA1C <7%. BMI <25 Patient has diagnosis of Hyperlipidemia (ICD E78)?: Yes - Visit Date of Assessment:: 06/14/20 - no recent labs available - Cholesterol/Lipids Determine presence & major risk factors that modify LDL goal: Hypertension or hypertensive medication, Age men > 45 years; women >/= 55 years Outcomes/Goals: Pt IDs own risk factors & lifestyle modifications by Session 10, Verbalizes symptoms of angina & response by session 3., Pt independently manages Intervention/Plan: Instruct on personal lipid levels & lipid goals/NCEP guidelines Referral to dietitian:: No 30-day Reassessments:: Progressing - Diabetes (Other Core Measures) Diabetes Type: Not Applicable - Weight Mgt (Other Care) Not Applicable: Yes Height: 4 ft 5 in Weight:: 135 lb BMI: 33.7 Diagnosis Overweight/Obesity BMI> 30% ICD-10 E66: Yes Diagnosis High BMI/Morbid Obesity BMI> 35% ICD-10 Z68: Yes Outcomes/Goals: Pt sets, maintains & shows weight loss goal & trend during rehab Intervention/Plan: Instruct on ideal BMI & set weight loss goal w/patient, Assist pt to ID & incorporate diet changes for weight loss by S9, Encourage goal of using 250-300dcal per session for weight loss 30 day Reassessments:: Progressing - Healthy Eating Habits Outcomes/Goals:: Consume diet rich in vegs,fruits,whole grain/high fiber,fish,lean meat, Limit sat/trans fats,cholesterol & added salts & sugars Intervention/Plan:: Assess current eating habits 30-day Reassessments:: Progressing - Education Gave educational materials for:: Healthy eating Medical- 60-Day Assessment - Visit Date of Eval: 06/14/20 Session #:: 23 - Medication Compliance Preventative Medication(s):: Aspirin, Statin/lipid, Beta akash H/O mental health issues: depression, anxiety, or addiction?: No Doesn?t believe in the benefits of treatment?: No Believes medications are unnecessary or harmful?: No Has a concern about medication side effects?: No Expresses concern over the cost of medications?: No Outcomes/Goals: Verbalizes medications,desired effect & common side effects @ DC, Pt self-reports following medication regimen, Keeps card in wallet w/medications listed by DC Interventions/plans: Instruct on medication effects & side effects, Review medication list w/patient every two weeks, Instruct importance of taking meds as ordered & assist problem solving 30-day Reassessments:: Progressing - Tobacco Use Tobacco Use: Non-smoker - Hypertension Hypertension Diagnosis:: Hypertension ICD-10 I10 Resting Blood Pressure:: 104/60 [place] [employer] Hypertension Guidelines: [place] [employer] Hypertension Guidelines. Normal BP Less than 120/80. Elevated BP 120/80. Hypertension Stage 1: BP 130-139/80-89. Hypertesnion Stage 2: BP 140 or higher/90 or higher. Hypertension Crisis: BP higher than 180/120 Peak Exercise Blood Pressure:: 120/78 Outcomes/Goals: Able to verbalize/achieve optimal blood pressure <130/80, Incorporates diet changes & exercise for blood pressure control by DC Interventions/plan: Instruct on optimal blood pressure, hypertension & medications, Instruct on effects of sodium, alcohol, stress, exercise &hypertension 30 day Reassessments:: Progressing - Tobacco Cessation Referral Smoking Cessation Referral:: No Individual Education/Counseling:: No Education Schedule Given:: Yes Psychosocial - 60-Day Assess - VIsit Date of Eval: 06/14/20 Session #:: 23 Not Applicable: Yes History of previous Mental disease:: No - Target Goals Target Goals: Assess presence or absence of depression. Using a valid screening tool, maximizes coping skills. Positive support system - Psychosocial Test Tool Used:: PHQ-9 Questionnaire phq-9 Severity: Severity. 1-4 Minimal Depression. 5-9 Mild Depression. 10-14 Moderate Depression. 15-19 Moderately Sever Depression. 20-27 Severe Depression. Rule: - Referral to Behavioral Health PS - Interventions: Yes Attend Stress Management Classes, No Referral to Behavioral Health if PHQ-9 score >9:, No Referral to [facility], No Referral to Physician if PHQ-9 if score is 5-9: - Outcomes/Goals: See list Psychosocial Outcomes/Goals:: ID's personal stressors & 2 strategies to manage stress by discharge - Intervention/Plan: See List Interventions/Plan:: Assess stressors,coping strategies & signs of derpression on admission, Instruct/assist pt to develop coping & personal stress Mgt strategies, Instruct patient to recognize signs & symptoms of depression, Instruct patient to recog - 30-day Reassessments: 30 day Reassessments:: Progressing Patient Health Questionnaire 60-Day Re-eval Assessment 1. Little interest or pleasure in doing things: Not at all 2. Feeling down, depressed, or hopeless: Not at all 3. Trouble falling or staying asleep, or sleeping too much: Not at all 4. Feeling tired or having little energy: Several days 5. Poor appetite or overeating: Not at all 6. Feeling bad about yourself -- or that you are a failure or have let yourself or your family down: Not at all 7. Trouble concentrating on things, such as reading the newspaper or watching television: Not at all 8. Moving or speaking so slowly that other people could have noticed. Or the opposite - being so fidgety or restless that you have been moving around a lot more than usual: Not at all How difficult have these problems made it for you to do your work, take care of things at home, or get along with other people?: Not difficult at all Total Score: 1 Self-Efficacy 60-Day Re-eval Assessment We would like to know how confident you are in doing certain activities. Please select your confidence level for:: Select your confidence level for the following using the scale 1-10 where 1 is not at all confident and 10 is totally confident. Your score is the average of all 6 responses. Fatigue: How confident are you that you can keep the fatigue caused by your disease from interfering with the things you want to do? Select Number: 9 Physical Discomfort or Pain: How confident are you that you can keep the physical discomfort or pain of your disease from interfering with the things you want to do? Select Number: 9 Emotional Distress: How confident are you that you can keep the emotional distress caused by your disease from interfering with the things you want to do? Select Number: 9 Other Symptoms or Health Problems: How confident are you that you can keep other symptoms or health problems from interfering with the things you want to do? Select Number: 9 Different Tasks and Activities: How confident are you that you can do the different tasks and activities needed to manage your health condition so as to reduce your need to see a doctor? Select Number: 9 Medication: How confident are you that you can do things other than just taking medication to reduce how much your illness affects your everyday life? Select Number: 9 Total Score:: 9
[2020-06-14 15:11] VITALS: BP 104/60; BP 120/78; BMI 33.7
== END 2020-06-30 23:59 ==
LOC: CR 15:15
PROVIDERS: PCP Internal Medicine; Referring Provider Thoracic Surgery (Cardiothoracic Vascular Surgery); Visit Provider Thoracic Surgery (Cardiothoracic Vascular Surgery)
DX: Z95.2 Presence of prosthetic heart valve (principal)
CPT/HCPCS: 93798

== ENCOUNTER 2020-07-14 15:15 | Outpatient (RCR) | payer MEDICARE, SELFPAY ==
[2020-04-15 08:35] VITALS: BMI 33.5
[2020-06-14 15:11] VITALS: BMI 33.7
[2020-07-01 00:34] VITALS: BP 104/60; BP 120/78
--- NOTE | 2020-07-12 07:06 | PCM.CR.ITP ---
Exercise - Final/Discharge - Visit Date of Eval: 07/12/20 Session #:: 35 - Physician Prescribed Exercise Modalities: Treadmill, NuStep, SciFit Frequency: 3x/week for 12 weeks [36 sessions] Intensity: 60-80% of age predicted maximum heart rate reserve Current METSs:: 3.3 Target Heart Rate:: 101-132 Current RPE:: 12 Maximum Excercise HR:: 94 Resting Blood Pressure: 90/58 Maximum Exercise Blood Pressure: 114/60 EKG Type: NSR with isolated PVCs. 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 - Outcomes & Goals Goals:: Verbalizes understanding of THR, RPE & goal METS by session 6, Documents in home exercise log/reports 30 min aerobic 5 day/wk by DC, Demonstrates accurate pulse taking by DC - Intervention & Plan Exercise Program Goals: Instruct on MET level & personal MET goal, Show patient to take own pulse /validate performance until accurate, Instruct on home exercise - 30-day Reassessments 30 day Reassessments:: Progressing - Physical Activity Home Exercise Physical Activity - Home Exercise: Safe Exercise, Warm-up, Self-monitoring, Cool-Down, Home Exercise > 30 min Daily, Sitting Time <3 hours/daily - Outcomes & Goals Outcomes/Goals: Demonstrates correct Warm-up/exercise Cool-Down (S3) if = 2.5 METs, Verbalizes symptoms of exercise intolerance by Session 3 (S3), Demonstrate safe equipment use (S3) & follows exercise prescrition (6) - Intervention & Plan Plan/Intervention: Instruct warm-up & cool-down if exercising at > 2 METs, Instruct on symptoms of exercise intolerance & actions to take, Instruct & monitor on saf, Assess intial functional capacity & safety risk - 30-day Reassessments 30 day Reassessments:: Progressing - Patient physically limited on intensity but did improve her endurance. Nutrition - Final Assessment - Program Goals Nutrition Program Goals: LDL <100 optimal. 100 - 129 Near optimal. 130 - 159 Borderline High. 160 - 189 High. Total Cholesterol <200 desirable. 200 - 239 Borderline High. >/= 240 High. HDL < 40 Low >/=60 High. Triglycerides <150 desirable. <199 optimal. VlDL 5 - 40. HgbA1C <7%. BMI <25 - Visit Date of Assessment:: 07/12/20 Session #:: 35 - no update lipid profile available - Cholesterol/Lipids Determine presence & major risk factors that modify LDL goal: Hypertension or hypertensive medication, Age men > 45 years; women >/= 55 years Outcomes/Goals: Pt IDs own risk factors & lifestyle modifications by Session 10, Verbalizes symptoms of angina & response by session 3., Pt independently manages Intervention/Plan: Instruct on personal lipid levels & lipid goals/NCEP guidelines, Instruct on cholesterol Referral to dietitian:: No - Diabetes (Other Core Measures) Diabetes Type: Not Applicable - Weight Mgt (Other Care) Not Applicable: No Height: 4 ft 5 in Weight:: 133 lb 8 oz BMI: 33.4 Diagnosis Overweight/Obesity BMI> 30% ICD-10 E66: Yes Diagnosis High BMI/Morbid Obesity BMI> 35% ICD-10 Z68: No Outcomes/Goals: Pt sets, maintains & shows weight loss goal & trend during rehab Intervention/Plan: Instruct on ideal BMI & set weight loss goal w/patient, Assist pt to ID & incorporate diet changes for weight loss by S9, Encourage goal of using 250-300dcal per session for weight loss 30 day Reassessments:: Progressing - Healthy Eating Habits Will attend diet classes:: Yes Outcomes/Goals:: Consume diet rich in vegs,fruits,whole grain/high fiber,fish,lean meat, Limit sat/trans fats,cholesterol & added salts & sugars Intervention/Plan:: Assess current eating habits 30-day Reassessments:: Progressing - Education Gave educational materials for:: Healthy eating Medical - Final Assessment - Visit Date of Eval: 07/12/20 Session #:: 35 - Medication Compliance Preventative Medication(s):: Aspirin, Statin/lipid, Beta akash H/O mental health issues: depression, anxiety, or addiction?: No Doesn?t believe in the benefits of treatment?: No Believes medications are unnecessary or harmful?: No Has a concern about medication side effects?: No Expresses concern over the cost of medications?: No Outcomes/Goals: Verbalizes medications,desired effect & common side effects @ DC, Pt self-reports following medication regimen, Keeps card in wallet w/medications listed by DC Interventions/plans: Instruct on medication effects & side effects, Review medication list w/patient every two weeks, Instruct importance of taking meds as ordered & assist problem solving 30-day Reassessments:: Met - Tobacco Use Tobacco Use: Non-smoker - Hypertension Hypertension Diagnosis:: Hypertension ICD-10 I10 Resting Blood Pressure:: 90/58 - controlled with medication [place] [employer] Hypertension Guidelines: [place] [employer] Hypertension Guidelines. Normal BP Less than 120/80. Elevated BP 120/80. Hypertension Stage 1: BP 130-139/80-89. Hypertesnion Stage 2: BP 140 or higher/90 or higher. Hypertension Crisis: BP higher than 180/120 Peak Exercise Blood Pressure:: 114/60 Outcomes/Goals: Able to verbalize/achieve optimal blood pressure <130/80, Incorporates diet changes & exercise for blood pressure control by DC Interventions/plan: Instruct on optimal blood pressure, hypertension & medications, Instruct on effects of sodium, alcohol, stress, exercise &hypertension 30 day Reassessments:: Met - Tobacco Cessation Referral Smoking Cessation Referral:: No Individual Education/Counseling:: No Education Schedule Given:: Yes Psychosocial - Final Assessmen - VIsit Date of Eval: 07/12/20 Session #:: 35 Not Applicable: No History of previous Mental disease:: No - Target Goals Target Goals: Assess presence or absence of depression. Using a valid screening tool, maximizes coping skills. Positive support system - Psychosocial Test Tool Used:: [employer] QOL Cardiac, PHQ-9 Questionnaire phq-9 Severity: Severity. 1-4 Minimal Depression. 5-9 Mild Depression. 10-14 Moderate Depression. 15-19 Moderately Sever Depression. 20-27 Severe Depression. Rule: - Referral to Behavioral Health PS - Interventions: Yes Attend Stress Management Classes, No Referral to Behavioral Health if PHQ-9 score >9:, No Referral to [facility], No Referral to Physician if PHQ-9 if score is 5-9: - Outcomes/Goals: See list Psychosocial Outcomes/Goals:: ID's personal stressors & 2 strategies to manage stress by discharge - Intervention/Plan: See List Interventions/Plan:: Assess stressors,coping strategies & signs of derpression on admission, Instruct/assist pt to develop coping & personal stress Mgt strategies, Instruct patient to recognize signs & symptoms of depression, Instruct patient to recog - 30-day Reassessments: 30 day Reassessments:: Met Patient Health Questionnaire Discharge Assessment 1. Little interest or pleasure in doing things: Not at all 2. Feeling down, depressed, or hopeless: Not at all 3. Trouble falling or staying asleep, or sleeping too much: Not at all 4. Feeling tired or having little energy: Not at all 5. Poor appetite or overeating: Not at all 6. Feeling bad about yourself -- or that you are a failure or have let yourself or your family down: Not at all 7. Trouble concentrating on things, such as reading the newspaper or watching television: Not at all 8. Moving or speaking so slowly that other people could have noticed. Or the opposite - being so fidgety or restless that you have been moving around a lot more than usual: Not at all 9. Thoughts that you would be better off , or of hurting yourself in some way: Not at all Total Score: 0 Self-Efficacy Discharge Assessment We would like to know how confident you are in doing certain activities. Please select your confidence level for:: Select your confidence level for the following using the scale 1-10 where 1 is not at all confident and 10 is totally confident. Your score is the average of all 6 responses. Fatigue: How confident are you that you can keep the fatigue caused by your disease from interfering with the things you want to do? Select Number: 9 Physical Discomfort or Pain: How confident are you that you can keep the physical discomfort or pain of your disease from interfering with the things you want to do? Select Number: 10 Emotional Distress: How confident are you that you can keep the emotional distress caused by your disease from interfering with the things you want to do? Select Number: 10 Other Symptoms or Health Problems: How confident are you that you can keep other symptoms or health problems from interfering with the things you want to do? Select Number: 10 Different Tasks and Activities: How confident are you that you can do the different tasks and activities needed to manage your health condition so as to reduce your need to see a doctor? Select Number: 10 Medication: How confident are you that you can do things other than just taking medication to reduce how much your illness affects your everyday life? Select Number: 10 Total Score:: 9 Nutrition Survey - Nutrition Survey Instructions Scoring Instructions: Scoring is as follows: Yes = 1 points. No = 0 point. Patient score that is >/=12 is considered to be at potential nutritional risk and could benefit from a referral to a registered dietitian. - Nutrition Survey Discharge Have you lost >10 lbs over the past 2 months without trying?: No Are you following a special diet at home for diabetes, low fat, or low salt?: Yes Are you interested in meeting with a dietitian for help understanding your diet?: No Do you eat less than 3 meals a day?: No Do you eat fatty meats (ozuna, sausage, ribs, etc), fried foods, desserts, large amounts of salad dressings, margarine, butter, or cheese most days?: No Do you have food allergies? [Enter types in comment field]: No Do you eat in restaurants more than 3 times a week?: No Do you season food with salt, seasoning salt, or garlic salt?: No Do you used canned, boxed, frozen meals, or soups, seasoning packets?: No Total Score:: 1
[2020-07-12 07:13] VITALS: BP 114/60; BP 90/58; BMI 33.4
== END 2020-07-31 23:59 ==
PROVIDERS: PCP Internal Medicine; Referring Provider Thoracic Surgery (Cardiothoracic Vascular Surgery); Visit Provider Thoracic Surgery (Cardiothoracic Vascular Surgery)
DX: Z95.2 Presence of prosthetic heart valve (principal)
CPT/HCPCS: 93798

== ENCOUNTER 2020-12-07 12:41 | Outpatient (RCR) | payer MEDICARE, SELFPAY ==
[2020-04-15 08:35] VITALS: BMI 33.5
[2020-07-12 07:13] VITALS: BMI 33.4
[2020-12-07] MEDS: COVID-19 VACC, MRNA(PFIZER)/PF 30 MCG/0.3 ML SYRINGE IM (18:13)
[2020-12-28] MEDS: COVID-19 VACC, MRNA(PFIZER)/PF 30 MCG/0.3 ML SYRINGE IM (17:58)
== END 2021-03-08 23:59 ==
LOC: IMMUN 12:41
PROVIDERS: PCP Internal Medicine; Visit Provider Family Medicine
DX: Z23 Encounter for immunization (principal)
CPT/HCPCS: 0001A; 0002A; 91300

== ENCOUNTER 2021-02-07 13:00 | Outpatient (RCR) | payer MEDICARE, SELFPAY ==
[2020-04-15 08:35] VITALS: BMI 33.5
[2020-07-12 07:13] VITALS: BMI 33.4
--- NOTE | 2021-01-26 15:14 | HP.PTEVAL ---
Patient's Visit Information SALLY CALLAHAN is a 65 year old F referred to Physical Therapy by NEGRO PANDEY with a diagnosis of L TSA 11/26. Date of Evaluation: 01/26/21 Physical Therapist: Negro Duarte, MADYT, OCS, CSCS - Visit Plan Frequency: 1x/Week Duration: 4-6 Weeks Plan: Pt unable to afford more than weekly therapy. 1x/week for 4-6 weeks for. 1. progress AAROM to AROM and strength ex for shoulder function. - Subjective L TSA 11/26/20. 2 months ago. Feels pretty good. AChes some times. Pain to 4/10 at night which can wake her up. It is weak adn she cannot lift a skillet yet . Can dress self but barely with reaching arm behind her . Ties shoes. [place] nd shower I. Is right handed. It needs done to. Sleep is interrupted due to multiple factors the shoulder being one of them but does get 8 hours of sleep. Doing exercises for shoulder mostly ROM with pendulum and stick. IR, ER, flexion abd, 10x 3x/day. Retired. Spends day keeping busy around house and keeping clean. Wants to get back to [employer] workout. Used to do TM, Nustep, recumbent. Can't reach into cupboard or do hair with L. - Pain L shoulder Pain Intensity (Out of 10): 0 Pain Intensity Range: 0, 4 - Objective Walks and transfers I. I bed adn chair transfers. R UE AROM 110 flexion and abduction and 30 ext rotation and PSIS IR. L UE AROM 45 flexion, and 40 abd, and 5 ext rotation and GT IR. elbows are WFL as are wrists. Strength L shoulder 2+ flexion and abd, 3 er, 3 IR, 4 biceps and triceps. R shoulder 4- IR, ER, elevation. 4 bi and triceps. Has pain end range of L shoulder movements and PROM same as active. Scapula tight on L and minimal movmement. cervical aROM WFL. - Goals Goal 1:: 110 flexion and abd and 30 ext rotation AROM L to get hand to head for hair Goal Time Frame: 4-6 Weeks Goal 2:: Reach up over shoulder level without pain Goal Time Frame: 4-6 Weeks Goal 3:: Pt feel 70% better overall Goal Time Frame: 4-6 Weeks Goal 4:: I approp HEP to minimize future problems. Goal Time Frame: 4-6 Weeks - Rehabilitation Potential Physical Therapy Diagnosis: Stiff shoulder s/p L TSA limiting funcitonal movment. Rehabilitation Potential: Fair - Anticipated Interventions Patient/Client Instruction: Educate patient on: Condition, Plan of Care For the Purpose of:: To increase ROM Therapeutic Exercise to Include: Strength training, Postural training, Passive ROM, Active ROM For the Purpose of:: To decrease pain, To increase ROM Manual Therapy Techniques to Include: Passive ROM For the Purpose of:: To increase ROM Thank you for the opportunity to evaluate your patient. For Medicare and Medicare HMO plans, please review the plan of care and approve it. It will need to be FAXED BACK to us at [phone] for Medicare purposes. For Medicare only, by signing this I certify the plan of care. Please let me know if there are questions or concerns regarding this plan of care. Physician Signature: Date:
--- NOTE | 2021-02-10 09:22 | HP.PT.NRP ---
SALLY CALLAHAN was seen in my office for initial evaluation on 01/26/21. The following Plan of Care was established for this patient: Initial Frequency: 1x/Week Initial Duration: 4-6 Weeks Patient/Client Instruction: Educate patient on: Condition, Plan of Care For the Purpose of:: To increase ROM Therapeutic Exercise to Include: Strength training, Postural training, Passive ROM, Active ROM For the Purpose of:: To decrease pain, To increase ROM Manual Therapy Techniques to Include: Passive ROM For the Purpose of:: To increase ROM This patient was last seen in our office 02/07/21. Pertinent comments regarding their Physical therapy will appear below: Pt seen for 3 visits of POC. Has asked to be discharged as she can get therapy elsewhere for a smaller co pay. Will disconintue her at this time. At this point I will be discontinuing this patient from physical therapy. I would be happy to see this patient again in the future if found appropriate by the physician. Thank you! Negro Duarte, DPT, OCS, CSCS
== END 2021-02-07 19:00 | disposition home or self-care (01) ==
LOC: PT 13:00
PROVIDERS: PCP Internal Medicine
DX: Z47.1 Aftercare following joint replacement surgery (principal); Z96.612 Presence of left artificial shoulder joint
CPT/HCPCS: 97110; 97161

== ENCOUNTER → 2021-03-02 14:57 | Outpatient (CLI) | payer MEDICARE, SELFPAY ==
[2020-04-15 08:35] VITALS: BMI 33.5
[2020-07-12 07:13] VITALS: BMI 33.4
[2021-03-02 16:22] LABS: BNP,B-Type NATRIURETIC PEPTIDE 42.6 pg/mL (0-100)
== END ==
PROVIDERS: PCP Internal Medicine; Visit Provider Nurse Practitioner
DX: R06.02 Shortness of breath (principal); R06.01 Orthopnea
CPT/HCPCS: 83880

== ENCOUNTER 2021-10-28 12:05 | Emergency (ER) | payer MEDICARE, SELFPAY ==
[2020-07-12 07:13] VITALS: BMI 33.4
[2021-10-28 12:06] VITALS: BP 130/80; PULSE 70; RESP 16; TEMP 36.1; O2SAT 98; BMI 33.1
--- NOTE | 2021-10-28 12:31 | CT_ITS ---
STUDY: CT CERVICAL SPINE WITHOUT CONTRAST REASON FOR EXAM: Female, 66 years old. Trauma. Laceration to the posterior aspect of the skull. RADIATION DOSAGE (If Supplied By Facility): CTDIvol = ( 21.46 ) mGy, DLP = ( 456.85 ) mGycm TECHNIQUE: High resolution transaxial imaging was performed without contrast material. Sagittal and coronal images were reconstructed. Individualized dose optimization techniques were used for this CT. COMPARISON: None FINDINGS: Normal craniovertebral junction. There are degenerative changes of the anterior atlantoaxial articulation. Normal odontoid process. Normal cervical lordosis. Normal vertebral bodies and posterior osseous elements. C2-3: Mild degree of disc space narrowing. Facet joint osteoarthritis and hypertrophy. C3-4: Mild degree of disc space narrowing. Anterior spondylosis. Uncovertebral arthrosis. Moderate degree of right neural foraminal stenosis. C4-5: Moderate degree of disc space narrowing. Spondylosis. Uncovertebral arthrosis. Facet joint osteoarthritis worse on the right side. Mild degree of bilateral neural foraminal stenosis. C5-6: Moderate degree of disc space narrowing. Facet joint osteoarthritis and hypertrophy with mild degree of bilateral neural foraminal stenosis. Uncovertebral arthrosis. C6-7: Marked degree of disc space narrowing. Subchondral sclerosis. Spondylosis. Uncovertebral arthrosis. Marked degree of right neural foraminal stenosis. C7-T1: Normal endplates. Normal disc height and morphology. Normal central canal and intervertebral neuroforamina. Atherosclerotic plaque formation of the carotid bifurcations bilaterally. CT/Spine Cervical without Contras IMPRESSION: Multilevel degenerative changes, as described above. Electronically Signed: Frank Lucero MD at 13:40 EST ,
--- NOTE | 2021-10-28 12:31 | CT_ITS ---
STUDY: CT BRAIN WITHOUT CONTRAST REASON FOR EXAM: Female, 66 years old. Trauma. Laceration overlying the posterior aspect of the skull. RADIATION DOSAGE (If Supplied By Facility): CTDIvol = ( 44.99 ) mGy, DLP = ( 812.98 ) mGycm TECHNIQUE: Transaxial CT imaging of the brain was performed without administration of intravenous contrast material. Individualized dose optimization techniques were used for this CT. COMPARISON: Comparison is made with prior study dated 08/29/2016. FINDINGS: There is evidence of a moderate-sized scalp hematoma overlying the posterior aspect of the parietal occipital bones superiorly. There is hyperostosis frontalis internus. There is mild cerebral atrophy with widening of the extra-axial spaces and ventricular dilatation. There are areas of decreased attenuation within the white matter tracts of the supratentorial brain, consistent with microvascular disease changes. Normal basal ganglia and thalami. Normal brainstem. Normal cerebellum. There is no intracranial hemorrhage. There are no findings of an acute ischemic infarction. Atherosclerotic calcification of the cavernous portions of the internal carotid arteries bilaterally. Normal visualized paranasal sinuses. CT/Brain/Head without Contrast IMPRESSION: Chronic involutional changes of the brain. Moderate sized scalp hematoma overlying the posterior aspect of the right and left parieto-occipital bones. Electronically Signed: Frank Lucero MD at 13:47 EST ,
--- NOTE | 2021-10-28 12:33 | EX.ED.GENINJ ---
HPI History of Present Illness Chief Complaint: Head Injury Narrative Narrative: Patient presents with injury to her occipital scalp from a fall that she sustained this morning at 9 AM, approximately 3-1/2 hours ago. She states she stepped up on the curb and fell backwards, slipping, she had no prodromal symptoms such as chest pain or shortness of breath. No loss of consciousness. She does not take blood thinners except for a baby aspirin on a daily basis. She hit the back of her head and sustained an abrasion/laceration that is appears linear. She has mild tenderness of her scalp. She denies any other injuries. No neck pain. She is unsure of her last tetanus immunization. [facility] Medical History APONEUROPATHY RIGHT HAND Chronic left shoulder pain Chronic rhinitis COCHLEAR IMPLANT LEFT EAR Diverticulitis Glaucoma Goiter Hypertension Internal hemorrhoids without complication LEFT HAND SURGERY DUPUYTREN'S CONTRACTUR Osteopenia REMOVAL BILATERAL CATARACTS Seborrheic keratoses Shingles Gilbert's syndrome, unspecified Home Medications azelastine 2 spray NASAL QHS 01/19/16 [History Last Taken 03/03/04] fluticasone propionate 2 spray NASAL DAILY 01/19/16 [History Last Taken Unknown] levothyroxine 150 mcg PO DAILY 01/19/16 [History Last Taken 03/04/20] pravastatin 20 mg PO QHS 01/19/16 [History Last Taken 03/03/20] ipratropium bromide 2 spray NASAL 4X/DAY 05/21/17 [History Last Taken Unknown] latanoprost 1 drp RIGHT EYE QHS 07/24/17 [History Last Taken 03/03/20] multivitamin with folic acid [Thera] 1 tab PO DAILY 07/24/17 [History Last Taken 03/04/20] naphazoline-pheniramine 1 drp EACH EYE TID PRN PRN 04/07/19 [History Last Taken Unknown] Potassium Chloride [Klor-Con M20] 20 meq PO TID 03/04/20 [History Last Taken 03/04/20] alendronate 70 mg PO DOWLING 03/04/20 [History Last Taken 03/01/20] ascorbic acid (vitamin C) 500 mg PO DAILY 03/04/20 [History Last Taken 03/04/20] aspirin 162 mg PO DAILY@0800 03/04/20 [History Last Taken 03/04/20] calcium carbonate-vitamin D3 1 tab PO DAILY 03/04/20 [History Last Taken 03/04/20] ferrous sulfate 325 mg PO DAILY 03/04/20 [History Last Taken 03/04/20] folic acid 1 mg PO DAILY 03/04/20 [History Last Taken 03/04/20] gabapentin 200 mg PO BID 03/04/20 [History Last Taken Unknown] magnesium oxide 400 mg PO DAILY 03/04/20 [History Last Taken 03/04/20] metoprolol succinate 25 mg PO DAILY 03/04/20 [History Last Taken 03/04/20] pantoprazole 40 mg PO DAILY 03/04/20 [History Last Taken 03/04/20] sennosides-docusate sodium 1 tab PO BID PRN PRN 03/04/20 [History Last Taken 03/04/20] tramadol 50 mg PO Q6H PRN PRN 03/04/20 [History Last Taken Unknown] alendronate 70 mg PO Q7D@0700 04/15/20 [History Last Taken Unknown] bumetanide 2 mg PO DAILY 04/15/20 [History Last Taken Unknown] Allergy/AdvReac Type Severity Reaction Status Date / Time amoxicillin Allergy Rash Verified 10/28/21 12:07 Surgical History H/O right heart catheterization S/P AVR (aortic valve replacement) Social History Smoking Status: Never smoker ROS ROS ED ROS Narrative Constitutional: No fever, no chills. HEENT: No sore throat. No neck pain. No loss of vision. No rhinorrhea. Bleeding from back of head. Mild tenderness. No neck pain. Cardiovascular: No chest pain. No palpitations. No pedal edema. Respiratory: No cough, no shortness of breath. Abdominal: No abdominal pain. No nausea. No vomiting. Genitourinary: No dysuria. No hematuria. Musculoskeletal: No myalgias. No arthralgias. Neurologic: No headaches. No dizziness. No lightheadedness. No paresthesias. Skin: No rash. No change in color. Psychiatric: No depression. No anxiety. EXAM Physical Exam Narrative Exam Narrative: Afebrile. Vital signs noted. GCS 15. ABCs intact. HEENT: Normocephalic. +1.5 cm abrasion with small underlying hematoma on occiput more towards the left. No evidence of active bleeding. PERRL, EOMI. Neck soft and supple. No point tenderness or step off. Full range of motion. Cardiovascular: Regular rate and rhythm. No murmurs, rubs, or gallops appreciated. Respiratory: No tachypnea. Lungs clear to auscultation bilaterally. Gastrointestinal: Abdomen soft, nontender, with normoactive bowel sounds. No rebound or guarding. Neurological: Awake. Alert. Nonfocal, nonlateralizing. Able to raise arms up to the level of head (baseline) Skin: No rash. Normal color. No pallor. Musculoskeletal: No pedal edema. Full range of motion extremities. Const Vital Signs: 10/28/21 12:06 10/28/21 12:57 Temperature 97.0 F L Temperature Source Temporal Pulse Rate 70 Respiratory Rate 16 Respiratory Effort Normal Non-Labored Respiratory Pattern Normal Blood Pressure 130/80 H Blood Pressure Mean 96 Pulse Ox 98 Oxygen Delivery Method Room Air MDM MDM MDM Narrative Medical decision making narrative: Her wound will be cleansed. She is given an Adacel injection. After cleansing, there was linear dried blood that was removed and there is only an abrasion type of laceration on her occiput. Once again no active bleeding. CT the brain shows moderately sized scalp hematoma but no evidence of fracture or intraparenchymal hemorrhage. CT of the C-spine shows degenerative changes. Upon repeat examination she feels well. I feel she be discharged safely home with follow-up. She will take [id number] analgesics and was instructed on brain rest. Return instructions were reviewed. Disposition is discharged home in stable condition. Radiography Diagnostic Testing: Clinical Impression(s) from Imaging Studies Brain CT 10/28/21 12:31 IMPRESSION: Chronic involutional changes of the brain. Moderate sized scalp hematoma overlying the posterior aspect of the right and left parieto-occipital bones. Electronically Signed: Frank Lucero MD at 13:47 EST , Cervical Spine CT 10/28/21 12:31 IMPRESSION: Multilevel degenerative changes, as described above. Electronically Signed: Frank Lucero MD at 13:40 EST , Discharge Plan Triage Chief Complaint: Head Injury ED Provider: Matt Guevara Dx/Rx/DC Orders Clinical Impression: Fall, Abrasion of scalp, Hematoma of occipital region of scalp, Immunization, tetanus-diphtheria Instructions: ED Abrasion, ED Head Injury (Adult), ED Hematoma Prescriptions: No Action levothyroxine 150 MCG tablet 150 mcg PO DAILY RF: 0 pravastatin 20 MG tablet 20 mg PO QHS RF: 0 azelastine 1 SPRAY aerosol,spray 2 spray NASAL QHS RF: 0 fluticasone propionate 1 SPRAY spray,suspension 2 spray NASAL DAILY RF: 0 ipratropium bromide 1 SPRAY spray,non-aerosol 2 spray NASAL 4X/DAY RF: 0 latanoprost 1 DROP bottle 1 drp Right Eye QHS RF: 0 multivitamin with folic acid [Thera] 1 TABLET tablet 1 tab PO DAILY RF: 0 naphazoline-pheniramine 1 DROP drops 1 drp EACH EYE TID PRN PRN (Reason: Allergies) RF: 0 alendronate 70 MG tablet 70 mg PO DOWLING RF: 0 sennosides-docusate sodium 1 EACH tablet 1 tab PO BID PRN PRN (Reason: Constipation) RF: 0 aspirin 81 MG tablet 162 mg PO DAILY@0800 RF: 0 tramadol 50 MG tablet 50 mg PO Q6H PRN PRN (Reason: moderate to severe pain) RF: 0 magnesium oxide 400 MG tablet 400 mg PO DAILY RF: 0 ascorbic acid (vitamin C) 500 MG tablet 500 mg PO DAILY RF: 0 ferrous sulfate 325 MG tablet 325 mg PO DAILY RF: 0 folic acid 1 MG tablet 1 mg PO DAILY RF: 0 gabapentin 100 MG capsule 200 mg PO BID RF: 0 metoprolol succinate 25 MG tablet extended release 24 hr 25 mg PO DAILY RF: 0 calcium carbonate-vitamin D3 1 EACH tablet 1 tab PO DAILY RF: 0 Potassium Chloride [Klor-Con M20] 20 MEQ Tab.Er.Prt 20 meq PO TID RF: 0 pantoprazole 40 MG tablet 40 mg PO DAILY RF: 0 alendronate 70 MG tablet 70 mg PO Q7D@0700 RF: 0 bumetanide 2 MG tablet 2 mg PO DAILY RF: 0 Primary Care Provider: Enrique Moses Referrals: Enrique Moses MD [Primary Care Provider] - 5-7 Days Disposition Disposition: Home, Self Care
[2021-10-28 14:11] VITALS: BP 137/62; PULSE 59; RESP 16; O2SAT 97
== END 2021-10-28 14:12 | disposition home or self-care (01) ==
PROVIDERS: Emergency Provider Emergency Medicine; PCP Internal Medicine; Visit Provider Emergency Medicine
DX: S00.03XA Contusion of scalp, initial encounter (principal); S00.01XA Abrasion of scalp, initial encounter; W01.0XXA Fall on same level from slipping, tripping and stumbling without subsequent striking against object, initial encounter; Y93.01 Activity, walking, marching and hiking; Y99.8 Other external cause status; I10 Essential (primary) hypertension; E04.9 Nontoxic goiter, unspecified; Z79.82 Long term (current) use of aspirin; Z79.899 Other long term (current) drug therapy
CPT/HCPCS: 70450; 72125; 99282

== ENCOUNTER 2023-07-04 09:52 | Inpatient (IN) | payer MEDICARE, SELFPAY ==
[2020-07-12 07:13] VITALS: BMI 33.4
[2023-07-04 09:53] VITALS: BP 146/70; PULSE 63; RESP 14; TEMP 36.2; O2SAT 97; BMI 35.0
[2023-07-04 10:22] LABS: Absolute Lymphocyte Count 1.62 X10^3/uL (0.83-4.51); Absolute Neutrophil Count 5.5 X10^3/uL (2.0-7.7); Basophil# 0.05 X10^3/uL; Basophil% 0.6 % (0-1); Eosinophil# 0.31 X10^3/uL; Eosinophils% 3.9 % (0-5); Hematocrit 40.1 % (37-47); Hemoglobin 12.8 g/dL (12.0-15.0); Lymphocyte # 1.62 X10^3/ul (0.83-4.51); Lymphocyte % 20.3 % (19-41); Mean Corp Hgb Conc 31.9 g/dL (32-36); Mean Corpuscular Hgb 31.9 pg (27.0-32.0); Mean Platelet Vol. 9.8 fl (6.2-12.0); Monocyte# 0.48 X10^3/uL; NRBC Flagged by Analyzer 0 % (0-5); Neutrophil # 5.49 X10^3/uL (2.7-7.7); Neutrophil % 68.9 % (47-70); Platelet Count 163 K/mm3 (150-450); RBC Distribution Width CV 11.9 % (11.6-14.6); Red Blood Count 4.01 M/mm3 (4.2-5.4)
[2023-07-04 10:46] LABS: AST(SGOT) 21 U/L (15-37); Alanine Aminotransfer ALT/SGPT 29 U/L (13-56); Albumin, Serum 3.5 g/dL (3.2-5.0); Alkaline Phosphatase 92 U/L (45-117); Anion Gap 4 (5-15); BUN 15 mg/dL (7-18); BUN/Creat Ratio 23.1 RATIO (10-20); Calcium,Total 9.5 mg/dL (8.5-10.1); Chloride 109 mmol/L (98-107); Creatinine, Serum 0.65 mg/dL (0.55-1.02); EST Glomerular Filtration Rate 97 mL/min (>60); Est Glom Filt Rate - Afr Amer 117 mL/min (>60); Estimated Creatinine Clearance 53.98 ml/min; Globulin 3.4 g/dL (2.2-4.2); Glucose 134 mg/dL (74-106); International Normalized Ratio 1.1; Potassium 3.9 mmol/L (3.5-5.1); Protein, Total 6.9 g/dL (6.4-8.2); Prothrombin Time (Protime)PT. 13.7 SECONDS (11.7-14.9); Sodium Level 138 mmol/L (136-145)
--- NOTE | 2023-07-04 11:10 | ED.VIS.GI ---
HPI HPI - GI History of Present Illness Chief Complaint: GI Bleed Narrative Narrative: 68-year-old female presenting with rectal bleeding. She states she had 3 bowel movements today with blood in it. She is only on low-dose aspirin and no other anticoagulants. She denies abdominal pain. She does feel like she is lightheaded and dizzy. No nausea or vomiting. Denies constipation or diarrhea. She states he has a history of lower GI bleed in the past. She states that she had a colonoscopy and they did not find anything. She states that they told her it was due to pain medication and is stopped her pain meds. [facility] Medical History APONEUROPATHY RIGHT HAND Chronic left shoulder pain Chronic rhinitis COCHLEAR IMPLANT LEFT EAR Diverticulitis Glaucoma Goiter Hypertension Internal hemorrhoids without complication LEFT HAND SURGERY DUPUYTREN'S CONTRACTUR Osteopenia REMOVAL BILATERAL CATARACTS Seborrheic keratoses Shingles Gilbert's syndrome, unspecified Home Medications azelastine 137 mcg (0.1 %) nasal spray aerosol 2 spray QHS allergies 01/19/16 [History Last Taken 03/03/04] fluticasone propionate 50 mcg/actuation nasal spray,suspension 2 spray DAILY allergies 01/19/16 [History Last Taken Unknown] levothyroxine 150 mcg tablet 150 mcg PO DAILY thyroid 01/19/16 [History Last Taken 03/04/20] pravastatin 20 mg tablet 20 mg PO QHS cholesterol 01/19/16 [History Last Taken 03/03/20] ipratropium bromide 42 mcg (0.06 %) nasal spray 2 spray 4X/DAY sob 05/21/17 [History Last Taken Unknown] latanoprost 0.005 % eye drops 1 drp QHS glaucoma 07/24/17 [History Last Taken 03/03/20] multivitamin with folic acid 400 mcg tablet (Thera) 1 tab PO DAILY supplement 07/24/17 [History Last Taken 03/04/20] naphazoline 0.025 %-pheniramine 0.3 % eye drops 1 drp EACH EYE TID PRN PRN Allergies 04/07/19 [History Last Taken Unknown] Potassium Chloride [Klor-Con M20] 20 meq PO TID supplement 03/04/20 [History Last Taken 03/04/20] alendronate 70 mg tablet 70 mg PO DOWLING bones 03/04/20 [History Last Taken 03/01/20] ascorbic acid (vitamin C) 500 mg tablet 500 mg PO DAILY supplement 03/04/20 [History Last Taken 03/04/20] aspirin 81 mg tablet,delayed release 162 mg PO DAILY@0800 heart health 03/04/20 [History Last Taken 03/04/20] calcium carbonate-vitamin D3 600 mg-125 unit tablet 1 tab PO DAILY supplement 03/04/20 [History Last Taken 03/04/20] ferrous sulfate 325 mg (65 mg iron) tablet 325 mg PO DAILY supplement 03/04/20 [History Last Taken 03/04/20] folic acid 1 mg tablet 1 mg PO DAILY supplement 03/04/20 [History Last Taken 03/04/20] gabapentin 100 mg capsule 200 mg PO BID nerve pain 03/04/20 [History Last Taken Unknown] magnesium oxide 400 mg (241.3 mg magnesium) tablet 400 mg PO DAILY supplement 03/04/20 [History Last Taken 03/04/20] metoprolol succinate 25 mg tablet,extended release 24 hr 25 mg PO DAILY heart 03/04/20 [History Last Taken 03/04/20] pantoprazole 40 mg tablet,delayed release 40 mg PO DAILY gerd 03/04/20 [History Last Taken 03/04/20] sennosides 8.6 mg-docusate sodium 50 mg tablet 1 tab PO BID PRN PRN Constipation 03/04/20 [History Last Taken 03/04/20] tramadol 50 mg tablet 50 mg PO Q6H PRN PRN moderate to severe pain 03/04/20 [History Last Taken Unknown] alendronate 70 mg tablet 70 mg PO Q7D@0700 04/15/20 [History Last Taken Unknown] bumetanide 2 mg tablet 2 mg PO DAILY 04/15/20 [History Last Taken Unknown] Allergy/AdvReac Type Severity Reaction Status Date / Time amoxicillin Allergy Rash Verified 07/04/23 09:54 Surgical History H/O right heart catheterization S/P AVR (aortic valve replacement) Social History Smoking Status: Never smoker ROS ROS ED ROS Narrative Headed Constitutional Constitutional ED: Denies chills or fever(s) ENT ENT ED: Denies rhinorrhea or sore throat Cardiovascular Cardiovascular: Denies chest pain or palpitations Respiratory/Chest Respiratory/Chest: Denies cough or dyspnea Gastrointestinal Gastrointestinal: Reports other Details: Bright red blood per rectum ; Denies abdominal pain, melena or nausea Genitourinary Genitourinary ED: Denies dysuria or hematuria Musculoskeletal Musculoskeletal: Denies arthralgias or back pain Integumentary Denies abscess Neurologic Neurologic: Denies headache(s) or paresthesias Psychiatric Psychiatric: Denies anxiety or depression EXAM Physical Exam Const Vital Signs: 07/04/23 09:53 07/04/23 12:00 Temperature 97.1 F L Temperature Source Temporal Pulse Rate 63 82 Respiratory Rate 14 18 Blood Pressure 146/70 H Blood Pressure Mean 95 Pulse Ox 97 100 Oxygen Delivery Method Room Air Room Air Positive well nourished General Appearance ED: NAD; Negative for pallor HEENT Reports moist mucous membranes Eyes PERRL and EOMs intact bilaterally Resp normal respiratory effort and clear to auscultation bilaterally Auscultation: Negative for rales, rhonchi or wheezes Cardio regular rate and regular rhythm GI non-tender and non-distended GI Narrative: Dried red blood noted around the rectum. No hemorrhoids. Neuro CN's II-XII intact bilaterally and moves all extremities Sensorium / Orientation: alert Motor Exam: general weakness Psych mental status grossly normal and thought process normal Skin General Skin Exam: Negative for jaundice or pallor MDM MDM MDM Narrative Medical decision making narrative: 68-year-old female presenting with bright red blood per rectum x3 this morning. This started at 9 AM. She has had this in the past and was told it was due to pain medications. She is not on any blood thinners but is on low-dose aspirin. Differential includes colitis, diverticulitis, diverticular bleed, anemia, dehydration, electrolyte abnormalities. CBC will be obtained to assess white blood cell count, hemoglobin, platelets. CMP to assess liver function, renal function, electrolytes. PT/INR to assess for coagulopathy. Patient typed and screened. We will obtain a CT of the abdomen pelvis with IV contrast to assess for source of GI bleeding. Patient declines analgesia. CBC shows a normal white blood cell count 8.0. Hemoglobin is 12.8. Platelets normal 163. LFTs, renal function, electrolytes all within normal limits. PT/INR normal. Blood type is a positive. At this point do not believe patient needs transfusion. CT of the abdomen pelvis with IV contrast was obtained and does not show acute diverticulitis. Shows hernia containing nonobstructed small bowel. Patient was discussed with Dr. Carpenter given her history of GI bleed and drop her hemoglobin is into the 8's previously. He recommended admission and monitoring of H&H's. Patient remained stable on here and will believe she needs blood at this time. Spoke with the hospitalist for admission. Impression: 1. Lower GI bleed 2. Lightheadedness Lab Data Labs: Laboratory Results - last 24 hr 07/04/23 10:14 WBC 8.0 RBC 4.01 L Hgb 12.8 Hct 40.1 MCV 100.0 H MCH 31.9 MCHC 31.9 L RDW Std Deviation 44.0 H RDW Coeff of Sandy 11.9 Plt Count 163 MPV 9.8 Immature Gran % (Auto) 0.300 Neut % (Auto) 68.9 Lymph % (Auto) 20.3 Parmer % (Auto) 6.0 Eos % (Auto) 3.9 Baso % (Auto) 0.6 Absolute Neuts (auto) 5.5 Absolute Lymphs (auto) 1.62 Nucleated RBC % 0 PT 13.7 INR 1.1 Sodium 138 Potassium 3.9 Chloride 109 H Carbon Dioxide 25.0 Anion Gap 4 L BUN 15 Creatinine 0.65 Estim Creat Clear Calc 53.98 Est GFR (MDRD) Af Amer 117 Est GFR (MDRD) Non-Af 97 BUN/Creatinine Ratio 23.1 H Glucose 134 H Calcium 9.5 Total Bilirubin 0.40 AST 21 ALT 29 Alkaline Phosphatase 92 Total Protein 6.9 Albumin 3.5 Globulin 3.4 Albumin/Globulin Ratio 1.0 Blood Type A POSITIVE Antibody Screen NEGATIVE Radiography Diagnostic Testing: Clinical Impression(s) from Imaging Studies Abdomen/Pelvis CT 07/04/23 11:42 IMPRESSION: Upper anterior abdominal wall hernia containing nonobstructed small bowel. The neck of the hernia measures 5 cm. Fatty infiltration of the liver. Multiple calcified splenic granulomas. Sigmoid diverticulosis. Electronically Signed: Frank Lucero MD at 12:34 EDT , Discharge Plan Triage Chief Complaint: GI Bleed ED Provider: Luan Matthews Dx/Rx/DC Orders Prescriptions: No Action levothyroxine 150 MCG tablet 150 mcg PO DAILY Patient Comments: DOES NOT TAKE SUN AND SUNDAY- for thyroid pravastatin 20 MG tablet 20 mg PO QHS Patient Comments: CHOLESTEROL azelastine 1 SPRAY aerosol,spray 2 spray NASAL QHS Patient Comments: nasal congestion fluticasone propionate 1 SPRAY spray,suspension 2 spray NASAL DAILY Patient Comments: NASAL CONGESTION ipratropium bromide 1 SPRAY spray,non-aerosol 2 spray NASAL 4X/DAY latanoprost 1 DROP bottle 1 drp Right Eye QHS Rx Instructions: RIGHT EYE multivitamin with folic acid [Thera] 1 TABLET tablet 1 tab PO DAILY naphazoline-pheniramine 1 DROP drops 1 drp EACH EYE TID PRN PRN (Reason: Allergies) alendronate 70 MG tablet 70 mg PO DOWLING sennosides-docusate sodium 1 EACH tablet 1 tab PO BID PRN PRN (Reason: Constipation) aspirin 81 MG tablet 162 mg PO DAILY@0800 tramadol 50 MG tablet 50 mg PO Q6H PRN PRN (Reason: moderate to severe pain) magnesium oxide 400 MG tablet 400 mg PO DAILY ascorbic acid (vitamin C) 500 MG tablet 500 mg PO DAILY ferrous sulfate 325 MG tablet 325 mg PO DAILY folic acid 1 MG tablet 1 mg PO DAILY gabapentin 100 MG capsule 200 mg PO BID metoprolol succinate 25 MG tablet extended release 24 hr 25 mg PO DAILY calcium carbonate-vitamin D3 1 EACH tablet 1 tab PO DAILY Potassium Chloride [Klor-Con M20] 20 MEQ Tab.Er.Prt 20 meq PO TID pantoprazole 40 MG tablet 40 mg PO DAILY alendronate 70 MG tablet 70 mg PO Q7D@0700 bumetanide 2 MG tablet 2 mg PO DAILY Primary Care Provider: Enrique Moses Referrals: Enrique Moses MD [Primary Care Provider] -
--- NOTE | 2023-07-04 11:42 | CT_ITS ---
STUDY: CT ABDOMEN AND PELVIS WITH CONTRAST REASON FOR EXAM: Female, 68 years old. 2 day history of blood in the stool. RADIATION DOSAGE (If Supplied By Facility): CTDIvol = ( 18.67 ) mGy, DLP = ( 828.22 ) mGycm TECHNIQUE: Transaxial images were obtained from the dome of the diaphragm to the symphysis pubis without oral contrast. IV 100mL Isovue-300 was administered. Sagittal and coronal images were reconstructed. Individualized dose optimization techniques were used for this CT. COMPARISON: None. FINDINGS: Mild increased interstitial markings at the lung bases suggestive of mild scarring. Coronary artery calcification. Prior CABG. Anterior upper abdominal wall hernia containing nonobstructed small bowel loops. The neck of the hernia measures 5 cm. There is decreased attenuation of the liver consistent with steatosis. Normal gallbladder and extrahepatic biliary system. There are multiple benign calcified granulomata of the spleen. Normal pancreas. Normal bilateral adrenal glands. 2.5 mm nonobstructive calculus in the posterior midpole calyx of the right kidney. There is a 1 cm cyst in the anterior midportion of the left kidney. 3 mm nonobstructive calculus in the left kidney. There is a small hiatal hernia. Normal small intestine. There are multiple colonic diverticula consistent with diverticulosis. The appendix is visualized and appears normal. Normal abdominal aorta. Normal inferior vena cava. Normal retroperitoneum. Normal urinary bladder. The uterus is atrophic. Normal abdominal wall. There are diffuse degenerative changes of the visualized lumbar spine. CT/Abdomen/Pelvis W IV Cont ONLY IMPRESSION: Upper anterior abdominal wall hernia containing nonobstructed small bowel. The neck of the hernia measures 5 cm. Fatty infiltration of the liver. Multiple calcified splenic granulomas. Sigmoid diverticulosis. Electronically Signed: Frank Lucero MD at 12:34 EDT ,
[2023-07-04 12:00] VITALS: PULSE 82; RESP 18; O2SAT 100
--- NOTE | 2023-07-04 12:54 | HP.PCM.HOS_ITS ---
[facility] - General General Date of Admission: 07/04/23 Date of Service: 07/04/23 Chief Complaint: Bleeding per rectum. [facility] Narrative SALLY CALLAHAN, is a 68 F who presents presented with bleeding per rectum. Patient has had 2 episodes over the past 2 days. She did not experience any abdominal pain. Patient had a similar presentation 4 years prior to current admission underwent colonoscopy which demonstrated diverticulosis in the entire examined colon. Hemoglobin on admission was 12.8. Patient admitted to regular nursing floor for further management REPLACED BY [facility] Medical History APONEUROPATHY RIGHT HAND Chronic left shoulder pain Chronic rhinitis COCHLEAR IMPLANT LEFT EAR Diverticulitis Glaucoma Goiter Hypertension Internal hemorrhoids without complication LEFT HAND SURGERY DUPUYTREN'S CONTRACTUR Osteopenia REMOVAL BILATERAL CATARACTS Seborrheic keratoses Shingles Gilbert's syndrome, unspecified Home Medications azelastine 137 mcg (0.1 %) nasal spray aerosol 2 spray QHS allergies 01/19/16 [History Last Taken 03/03/04] fluticasone propionate 50 mcg/actuation nasal spray,suspension 2 spray DAILY allergies 01/19/16 [History Last Taken Unknown] levothyroxine 150 mcg tablet 150 mcg PO DAILY thyroid 01/19/16 [History Last Taken 03/04/20] pravastatin 20 mg tablet 20 mg PO QHS cholesterol 01/19/16 [History Last Taken 03/03/20] ipratropium bromide 42 mcg (0.06 %) nasal spray 2 spray 4X/DAY sob 05/21/17 [History Last Taken Unknown] latanoprost 0.005 % eye drops 1 drp QHS glaucoma 07/24/17 [History Last Taken 03/03/20] multivitamin with folic acid 400 mcg tablet (Thera) 1 tab PO DAILY supplement 07/24/17 [History Last Taken 03/04/20] naphazoline 0.025 %-pheniramine 0.3 % eye drops 1 drp EACH EYE TID PRN PRN Allergies 04/07/19 [History Last Taken Unknown] Potassium Chloride [Klor-Con M20] 20 meq PO TID supplement 03/04/20 [History Last Taken 03/04/20] alendronate 70 mg tablet 70 mg PO DOWLING bones 03/04/20 [History Last Taken 03/01/20] ascorbic acid (vitamin C) 500 mg tablet 500 mg PO DAILY supplement 03/04/20 [History Last Taken 03/04/20] aspirin 81 mg tablet,delayed release 162 mg PO DAILY@0800 heart health 03/04/20 [History Last Taken 03/04/20] calcium carbonate-vitamin D3 600 mg-125 unit tablet 1 tab PO DAILY supplement 03/04/20 [History Last Taken 03/04/20] ferrous sulfate 325 mg (65 mg iron) tablet 325 mg PO DAILY supplement 03/04/20 [History Last Taken 03/04/20] folic acid 1 mg tablet 1 mg PO DAILY supplement 03/04/20 [History Last Taken 03/04/20] magnesium oxide 400 mg (241.3 mg magnesium) tablet 400 mg PO DAILY supplement 03/04/20 [History Last Taken 03/04/20] metoprolol succinate 25 mg tablet,extended release 24 hr 25 mg PO DAILY heart 03/04/20 [History Last Taken 03/04/20] pantoprazole 40 mg tablet,delayed release 40 mg PO DAILY gerd 03/04/20 [History Last Taken 03/04/20] sennosides 8.6 mg-docusate sodium 50 mg tablet 1 tab PO BID PRN PRN Constipation 03/04/20 [History Last Taken 03/04/20] tramadol 50 mg tablet 50 mg PO Q6H PRN PRN moderate to severe pain 03/04/20 [History Last Taken Unknown] alendronate 70 mg tablet 70 mg PO Q7D@0700 04/15/20 [History Last Taken Unknown] bumetanide 2 mg tablet 2 mg PO DAILY 04/15/20 [History Last Taken Unknown] betamethasone, augmented 0.05 % topical cream applic topical 07/04/23 [History Last Taken Unknown] brimonidine 0.2 % eye drops drp 07/04/23 [History Last Taken Unknown] dorzolamide 22.3 mg-timolol 6.8 mg/mL eye drops 07/04/23 [History Last Taken Unknown] Allergy/AdvReac Type Severity Reaction Status Date / Time amoxicillin Allergy Rash Verified 07/04/23 09:54 Surgical History H/O right heart catheterization S/P AVR (aortic valve replacement) Social History Smoking Status: Never smoker ROS ROS Narrative GENERAL: denies fever, chills, night sweats, weight loss, anorexia HEENT: denies headache, sinus congestion, or drainage, dysphagia RESPIRATORY: denies cough, sputum production, shortness of breath, dyspnea on exertion CARDIAC: denies chest pain, palpitations, orthopnea, PND GASTROINTESTINAL: Hematochezia GENITOURINARY: denies dysuria, urgency, frequency, heamaturia EXTREMITY: denies swelling MUSCULOSKELETAL: denies current joint pain or tenderness NEUROLOGIC: denies focal numbness, weakness, tingling HEMATOLOGIC: denies easy bruising and/or hemorrhage INTEGUMENT: denies rashes PSYCHIATRIC: denies suicidal or homicidal ideation Vital Signs Vital Signs Vital Signs: 07/04/23 09:53 07/04/23 12:00 Temperature 97.1 F L Temperature Source Temporal Pulse Rate 63 82 Respiratory Rate 14 18 Blood Pressure 146/70 H Blood Pressure Mean 95 Pulse Ox 97 100 Oxygen Delivery Method Room Air Room Air Weight Weight: 63.503 kg Body Mass Index (BMI) 35.0 Physical Exam Narrative GENERAL: cooperative HEENT: Atraumatic; normocephalic EYES; Anicteric, Normal Conjunctiva NECK; supple, normal thyroid, RESPIRATORY: Diminished to auscultation CARDIOVASCULAR: Regular S1 S2, GI: soft, normoactive bowel sounds, : No Renal angle tenderness; EXTREMITIES: No edema, no clubbing, MUSCULOSKELETAL: no muscle wasting NEURO: Awake; no lateralizing signs. SKIN: No Rash PSYCH; Flat affect Results Lab / Micro Data 07/04/23 10:14 07/04/23 10:14 Labs: Laboratory Results - last 24 hr 07/04/23 10:14: WBC 8.0, RBC 4.01 L, Hgb 12.8, Hct 40.1, MCV 100.0 H, MCH 31.9, MCHC 31.9 L, RDW Std Deviation 44.0 H, RDW Coeff of Sandy 11.9, Plt Count 163, MPV 9.8, Immature Gran % (Auto) 0.300, Neut % (Auto) 68.9, Lymph % (Auto) 20.3, [place] % (Auto) 6.0, Eos % (Auto) 3.9, Baso % (Auto) 0.6, Absolute Neuts (auto) 5.5, Absolute Lymphs (auto) 1.62, Nucleated RBC % 0, PT 13.7, INR 1.1, Sodium 138, Potassium 3.9, Chloride 109 H, Carbon Dioxide 25.0, Anion Gap 4 L, BUN 15, Creatinine 0.65, Estim Creat Clear Calc 53.98, Est GFR (MDRD) Af Amer 117, Est GFR (MDRD) Non-Af 97, BUN/Creatinine Ratio 23.1 H, Glucose 134 H, Calcium 9.5, Total Bilirubin 0.40, AST 21, ALT 29, Alkaline Phosphatase 92, Total Protein 6.9, Albumin 3.5, Globulin 3.4, Albumin/Globulin Ratio 1.0, Blood Type A POSITIVE, Antibody Screen NEGATIVE Radiology Impression Abdomen/Pelvis CT 07/04/23 11:42 IMPRESSION: Upper anterior abdominal wall hernia containing nonobstructed small bowel. The neck of the hernia measures 5 cm. Fatty infiltration of the liver. Multiple calcified splenic granulomas. Sigmoid diverticulosis. Electronically Signed: Frank Lucero MD at 12:34 EDT , Assessment & Plan Assessment/Plan (1) Rectal bleeding: PLAN: Plan Patient is a 68-year-old lady presenting with painless rectal bleed 1. Acute lower GI bleed ? Suspected to be secondary to diverticular bleed given patient previous history. Admitted to regular nursing floor H&H being monitored every 6 hours. Patient typed and screened with consultation placed to GI 2. Valvular heart disease ? With history of aortic valve replacement 3. Hypothyroidism - Patient is on levothyroxine home dose continued 4. Hypertension - Blood pressure controlled, home medications continued with dose adjustment as needed 5. Class I obesity with BMI of 35 ? Weight loss advised 6. Dyslipidemia -Patient is on statin therapy, continued at home dose 7. Osteoporosis ? Patient is on alendronate plan is to resume on discharge 8. GERD ? Patient is on PPI continue 9. DVT prophylaxis ? Chemoprophylaxis contraindicated in view of presentation bilateral SCDs Time spent in the patient's overall evaluation,decision-making process, review of diagnostic data, adjustment of management, discussion with other providers, nursing nursing and ancillary staff involved in patient's care documentation, 75 minutes Advance planning; did discuss with the patient and family regarding advanced directives as well as CODE STATUS. Did explain the various scenarios involved ( FULL CODE, DNR CCA, DNR CCA with no intubation, and DNR CC and what each meant) patient elected to be full code with CPR and intubation if needed. Order was placed. Time spent on discussion 18 minutes. Charges/Coding Visit Charges Inpatient E&M: 02092 Init Hosp L3 Procedures Hospitalists Procedures: 54951 Advncd Care Plan 30 Min
[2023-07-04 13:00] VITALS: BP 161/65; PULSE 56; RESP 16; TEMP 36.6; O2SAT 100
[2023-07-04 14:30] VITALS: BP 117/71; PULSE 70; RESP 16; O2SAT 96
[2023-07-04 16:08] VITALS: BMI 33.8
[2023-07-04 16:47] VITALS: BP 134/61; PULSE 62; RESP 14; TEMP 36.7; O2SAT 96
[2023-07-04 17:47] LABS: Hematocrit 39.6 % (37-47); Hemoglobin 12.8 g/dL (12.0-15.0)
[2023-07-04] MEDS: 0.9% Normal Saline (1000mL) 1,000 ML 125 ML IV (18:00)
[2023-07-04] MEDS: Pantoprazole Sodium 40 MG in 0.9% Normal Saline (100mL MB+) 100 ML 330 MG IV (18:27)
[2023-07-04 22:10] VITALS: BP 112/70; PULSE 72; RESP 12; TEMP 36.5; O2SAT 97
[2023-07-04 22:19] LABS: Hematocrit 36.7 % (37-47); Hemoglobin 12.1 g/dL (12.0-15.0)
[2023-07-04] MEDS: Azelastine HCl NASAL.SRY 2 SPRAY NASAL (22:21)
[2023-07-04] MEDS: BRIMONIDINE 0.2% 5ML BOTTLE 1 DRP OPHTHALMIC (22:26)
[2023-07-04] MEDS: Pravastatin 20 MG Tablet PO (22:33)
[2023-07-04] MEDS: Latanoprost 0.005% 1 Bottle 1 DRP RIGHT EYE (23:44)
[2023-07-05] MEDS: 0.9% Normal Saline (1000mL) 1,000 ML 125 ML IV ×3 (02:01→18:42)
[2023-07-05 02:05] VITALS: BP 100/60; PULSE 65; RESP 18; TEMP 36.6; O2SAT 95
[2023-07-05 04:25] LABS: Absolute Lymphocyte Count 1.91 X10^3/uL (0.83-4.51); Basophil# 0.05 X10^3/uL; Basophil% 0.6 % (0-1); Eosinophils% 3.8 % (0-5); Hematocrit 35.8 % (37-47); Hemoglobin 11.7 g/dL (12.0-15.0); Lymphocyte # 1.91 X10^3/ul (0.83-4.51); Lymphocyte % 24.1 % (19-41); Mean Corp Hgb Conc 32.7 g/dL (32-36); Mean Corpuscular Hgb 32.3 pg (27.0-32.0); Mean Corpuscular Volume 98.9 fL (81-99); Mean Platelet Vol. 10.2 fl (6.2-12.0); Monocyte# 0.69 X10^3/uL; Monocyte% 8.7 % (0-10); NRBC Flagged by Analyzer 0 % (0-5); Neutrophil # 4.95 X10^3/uL (2.7-7.7); Neutrophil % 62.4 % (47-70); Platelet Count 154 K/mm3 (150-450); RBC Distribution Width CV 12.3 % (11.6-14.6); RBC Distribution Width SD 44.2 fl (35.1-43.9); Red Blood Count 3.62 M/mm3 (4.2-5.4); White Blood Count 7.9 K/mm3 (4.4-11.0)
[2023-07-05 04:48] LABS: Anion Gap 6 (5-15); BUN 11 mg/dL (7-18); BUN/Creat Ratio 20.7 RATIO (10-20); Calcium,Total 8.1 mg/dL (8.5-10.1); Chloride 114 mmol/L (98-107); Creatinine, Serum 0.53 mg/dL (0.55-1.02); EST Glomerular Filtration Rate 121 mL/min (>60); Est Glom Filt Rate - Afr Amer 147 mL/min (>60); Estimated Creatinine Clearance 54.15 ml/min; Glucose 82 mg/dL (74-106); Magnesium 2.2 mg/dL (1.6-2.6); Phosphorus 2.8 mg/dL (2.5-4.9); Potassium 3.4 mmol/L (3.5-5.1); Sodium Level 143 mmol/L (136-145)
[2023-07-05 06:04] VITALS: BP 115/63; PULSE 65; RESP 12; TEMP 36.6; O2SAT 96
[2023-07-05] MEDS: Levothyroxine 150 MCG Tablet PO (06:09)
[2023-07-05 08:07] VITALS: BP 126/60; PULSE 69; RESP 16; TEMP 36.7; O2SAT 97
[2023-07-05] MEDS: BRIMONIDINE 0.2% 5ML BOTTLE 1 DRP OPHTHALMIC ×2 (08:21→22:18)
[2023-07-05] MEDS: Ipratropium Bromide 0.06% NASAL SPRAY 2 SPRAY NASAL ×4 (08:22→22:03)
[2023-07-05 10:15] LABS: Hematocrit 36.1 % (37-47); Hemoglobin 11.7 g/dL (12.0-15.0)
[2023-07-05] MEDS: Fluticasone 0.05% 1 SPRAY NASAL.SRY 2 SPRAY NASAL (10:16)
[2023-07-05] MEDS: Pantoprazole Sodium 40 MG in 0.9% Normal Saline (100mL MB+) 100 ML 330 MG IV ×2 (10:16→22:06)
[2023-07-05] MEDS: Dorzolamide HCL/Timolol 10 ml Bottle 1 DRP OPHTHALMIC ×2 (10:17→22:07)
[2023-07-05 10:18] VITALS: PULSE 69
[2023-07-05] MEDS: Metoprolol(XL)Succ 25 MG Tablet PO (10:18)
--- NOTE | 2023-07-05 11:28 | PCM.PN.HOSP ---
Reason for Visit Reason for Visit: Diagnoses Hemorrhage of anus and rectum (07/04/23) Subjective Subjective Patient is a 68-year-old female admitted with rectal bleed. Admitted to monitored bed patient continues to pass clots per rectum. Objective Data Objective Data Vital Signs: Vital Signs Temp Pulse Resp BP Pulse Ox O2 Del Method 98.1 F 69 16 126/60 H 97 Room Air 07/05/23 08:07 07/05/23 10:18 07/05/23 08:07 07/05/23 08:07 07/05/23 08:07 07/05/23 08:07 Oxygen Delivery Method Room Air Weight: 63.7 kg Body Mass Index (BMI) 33.8 Intake & Output: Intake and Output for Last 24 Hours 07/03/23 07/04/23 07/05/23 23:59 23:59 23:59 Intake Total 310 / 360 2260 / 2260 Balance 310 / 360 2260 / 2260 Lab / Micro Data 07/05/23 09:53 07/05/23 04:15 Labs: Laboratory Results - last 24 hr 07/04/23 17:22: Hgb 12.8, Hct 39.6 07/04/23 21:45: Hgb 12.1, Hct 36.7 L 07/05/23 04:15: WBC 7.9, RBC 3.62 L, Hgb 11.7 L, Hct 35.8 L, MCV 98.9, MCH 32.3 H, MCHC 32.7, RDW Std Deviation 44.2 H, RDW Coeff of Sandy 12.3, Plt Count 154, MPV 10.2, Immature Gran % (Auto) 0.400, Neut % (Auto) 62.4, Lymph % (Auto) 24.1, [place] % (Auto) 8.7, Eos % (Auto) 3.8, Baso % (Auto) 0.6, Absolute Neuts (auto) 5.0, Absolute Lymphs (auto) 1.91, Nucleated RBC % 0, Sodium 143, Potassium 3.4 L, Chloride 114 H, Carbon Dioxide 23.0, Anion Gap 6, BUN 11, Creatinine 0.53 L, Estim Creat Clear Calc 54.15, Est GFR (MDRD) Af Amer 147, Est GFR (MDRD) Non-Af 121, BUN/Creatinine Ratio 20.7 H, Glucose 82, Calcium 8.1 L, Phosphorus 2.8, Magnesium 2.2 07/05/23 09:53: Hgb 11.7 L, Hct 36.1 L Radiography Diagnostic Testing: Radiology Impression Abdomen/Pelvis CT 07/04/23 11:42 IMPRESSION: Upper anterior abdominal wall hernia containing nonobstructed small bowel. The neck of the hernia measures 5 cm. Fatty infiltration of the liver. Multiple calcified splenic granulomas. Sigmoid diverticulosis. Electronically Signed: Frank Lucero MD at 12:34 EDT , Physical Exam Narrative GENERAL: cooperative HEENT: Atraumatic; normocephalic EYES; Anicteric, Normal Conjunctiva NECK; supple, normal thyroid, RESPIRATORY: Diminished to auscultation CARDIOVASCULAR: Regular S1 S2, GI: soft, normoactive bowel sounds, : No Renal angle tenderness; EXTREMITIES: No edema, no clubbing, MUSCULOSKELETAL: no muscle wasting NEURO: Awake; no lateralizing signs. SKIN: No Rash PSYCH; Flat affect Assessment & Plan Assessment/Plan (1) Rectal bleeding: PLAN: Plan Patient is a 68-year-old lady presenting with painless rectal bleed 1. Acute lower GI bleed ? Suspected to be secondary to diverticular bleed given patient previous history. Admitted to regular nursing floor H&H being monitored every 6 hours. Patient typed and screened with consultation placed to GI ? 07/05/2023 patient continues to pass clots per rectum. Hemoglobin down from 12.8-11.7 we will continue with monitoring of H&H pending eval by GI 2. Valvular heart disease ? With history of aortic valve replacement 3. Hypothyroidism - Patient is on levothyroxine home dose continued 4. Hypertension - Blood pressure controlled, home medications continued with dose adjustment as needed 5. Class I obesity with BMI of 35 ? Weight loss advised 6. Dyslipidemia -Patient is on statin therapy, continued at home dose 7. Osteoporosis ? Patient is on alendronate plan is to resume on discharge 8. GERD ? Patient is on PPI continue 9. DVT prophylaxis ? Chemoprophylaxis contraindicated in view of presentation bilateral SCDs Time spent in the patient's overall evaluation,decision-making process, review of diagnostic data, adjustment of management, discussion with other providers, nursing nursing and ancillary staff involved in patient's care documentation, 50minutes Charges/Coding Visit Charges Inpatient E&M: 62708 Subs Hosp L3
[2023-07-05 14:20] VITALS: BP 102/61; PULSE 71; RESP 16; TEMP 36.4; O2SAT 97
[2023-07-05] MEDS: Bisacodyl 5 MG Tablet 20 MG PO (15:10)
[2023-07-05] MEDS: Potassium Chloride Oral Tablet 20 MEQ 40 MEQ PO (15:10)
--- NOTE | 2023-07-05 15:37 | CASEMGMT ---
Met with patient to complete BAUM form. BAUM form explained to pt who voiced understanding and signed form. Original form placed in pt?s chart and copy provided to patient. Radha Valdes, Discharge Planning Asst
--- NOTE | 2023-07-05 16:09 | CASEMGMT ---
Social Work SW introduced self and role to patient. SW discussed advance directives with patient. Pt indicates her POA and Living will documents should be in file. Pt reports her brothers Yoan and Keron are both her HCPOAs. SW requested patient to bring in a copy to place on record when able, patient understood. Pt denied any other SW needs at the time. Rosa Domingo ELECTRIC SCOOP OPERATOR, STAMPING DIE TRY OUT WORKER
[2023-07-05] MEDS: Polyethylene Glycol 3350 BOWEL PREP PO (16:41)
--- NOTE | 2023-07-05 16:42 | CON.PCM.GI_ITS ---
HPI Consult Data Date of Consult: 07/04/23 HPI Narrative Reason for Consultation: GI bleed HPI Narrative: SALLY CALLAHAN, is a 68 F who presents with lower GI bleeding. She states she had 3 bowel movements today with blood in it. She is only on low-dose aspirin and no other anticoagulants. She denies abdominal pain. She does feel like she is lightheaded and dizzy. No nausea or vomiting. Denies constipation or diarrhea. She states he has a history of lower GI bleed in the past. She states that she had a colonoscopy and they did not find anything. She states that they told her it was due to pain medication and is stopped her pain meds. COUNTS INCLUDE 234 BEDS AT THE [facility] Medical History (Updated 07/06/23 @ 01:24 by Tona Moyer) Anemia APONEUROPATHY RIGHT HAND Chronic left shoulder pain Chronic rhinitis COCHLEAR IMPLANT LEFT EAR CPAP (continuous positive airway pressure) dependence Diverticulitis Glaucoma Goiter Hiatal hernia High cholesterol Hypertension Internal hemorrhoids without complication LEFT HAND SURGERY DUPUYTREN'S CONTRACTUR Osteopenia REMOVAL BILATERAL CATARACTS Seborrheic keratoses Shingles Sleep apnea Gilbert's syndrome, unspecified Home Medications azelastine 137 mcg (0.1 %) nasal spray aerosol 2 spray QHS allergies 01/19/16 [History Last Taken 07/04/23] fluticasone propionate 50 mcg/actuation nasal spray,suspension 2 spray DAILY allergies 01/19/16 [History Last Taken Unknown] levothyroxine 150 mcg tablet 150 mcg PO DAILY thyroid 01/19/16 [History Last Taken 03/04/20] pravastatin 20 mg tablet 20 mg PO QHS cholesterol 01/19/16 [History Last Taken 07/03/23] ipratropium bromide 42 mcg (0.06 %) nasal spray 2 spray 4X/DAY sob 05/21/17 [History Last Taken 07/04/23] latanoprost 0.005 % eye drops 1 drp QHS glaucoma 07/24/17 [History Last Taken 03/03/20] multivitamin with folic acid 400 mcg tablet (Thera) 1 tab PO DAILY supplement 07/24/17 [History Last Taken 07/04/23] alendronate 70 mg tablet 70 mg PO DOWLING bones 03/04/20 [History Last Taken 03/01/20] ascorbic acid (vitamin C) 500 mg tablet 500 mg PO DAILY supplement 03/04/20 [History Last Taken 07/04/23] aspirin 81 mg tablet,delayed release 162 mg PO DAILY@0800 heart health 03/04/20 [History Last Taken 07/04/23] calcium carbonate-vitamin D3 600 mg-125 unit tablet 1 tab PO DAILY supplement 03/04/20 [History Last Taken 07/04/23] metoprolol succinate 25 mg tablet,extended release 24 hr 25 mg PO DAILY heart 03/04/20 [History Last Taken 03/04/20] pantoprazole 40 mg tablet,delayed release 40 mg PO DAILY gerd 03/04/20 [History Last Taken 03/04/20] alendronate 70 mg tablet 70 mg PO Q7D@0700 04/15/20 [History Last Taken Unknown] brimonidine 0.2 % eye drops 1 drp ophthalmic (eye) BID 07/04/23 [History Last Taken 07/04/23] dorzolamide 22.3 mg-timolol 6.8 mg/mL eye drops 1 drp ophthalmic (eye) Q12H 07/04/23 [History Last Taken 07/04/23] Allergy/AdvReac Type Severity Reaction Status Date / Time amoxicillin Allergy Rash Verified 07/04/23 09:54 Surgical History (Updated 07/06/23 @ 01:24 by Tona Moyer) H/O cardiac catheterization H/O right heart catheterization S/P AVR (aortic valve replacement) Social History Smoking Status: Never smoker ROS ROS Narrative GENERAL: denies fever, chills, night sweats, weight loss, anorexia HEENT: denies headache, sinus congestion, or drainage, dysphagia RESPIRATORY: denies cough, sputum production, shortness of breath, dyspnea on exertion CARDIAC: denies chest pain, palpitations, orthopnea, PND GASTROINTESTINAL: Hematochezia GENITOURINARY: denies dysuria, urgency, frequency, heamaturia EXTREMITY: denies swelling MUSCULOSKELETAL: denies current joint pain or tenderness NEUROLOGIC: denies focal numbness, weakness, tingling HEMATOLOGIC: denies easy bruising and/or hemorrhage INTEGUMENT: denies rashes PSYCHIATRIC: denies suicidal or homicidal ideation Physical Exam Narrative GENERAL: cooperative HEENT: Atraumatic; normocephalic EYES; Anicteric, Normal Conjunctiva NECK; supple, normal thyroid, RESPIRATORY: Diminished to auscultation CARDIOVASCULAR: Regular S1 S2, GI: soft, normoactive bowel sounds, : No Renal angle tenderness; EXTREMITIES: No edema, no clubbing, MUSCULOSKELETAL: no muscle wasting NEURO: Awake; no lateralizing signs. SKIN: No Rash PSYCH; Flat affect Lab / Micro Data 07/06/23 05:00 07/06/23 05:00 Labs: Laboratory Results - last 24 hr 07/06/23 05:00: WBC 7.5, RBC 3.30 L, Hgb 10.8 L, Hct 33.9 L, MCV 102.7 H, MCH 32.7 H, MCHC 31.9 L, RDW Std Deviation 46.6 H, RDW Coeff of Sandy 12.5, Plt Count 145 L, MPV 10.6, Immature Gran % (Auto) 0.500, Neut % (Auto) 64.0, Lymph % (Auto) 21.7, [place] % (Auto) 9.0, Eos % (Auto) 4.0, Baso % (Auto) 0.8, Absolute Neuts (auto) 4.8, Absolute Lymphs (auto) 1.62, Nucleated RBC % 0, PT 14.7, INR 1.1, APTT 26.0, Sodium 144, Potassium 3.7, Chloride 118 H, Carbon Dioxide 22.0, Anion Gap 4 L, BUN 4 L, Creatinine 0.49 L, Estim Creat Clear Calc 54.15, Est GFR (MDRD) Af Amer 162, Est GFR (MDRD) Non-Af 134, BUN/Creatinine Ratio 8.2 L, Glucose 85, Calcium 7.9 L, TSH 2.25 Assessment & Plan Assessment/Plan (1) Rectal bleeding: PLAN: Plan Patient is a 68-year-old lady presenting with lower GI bleeding. Differential diagnosis does include diverticular bleeding, hemorrhoidal bleeding, ischemic colitis, ulcerative colitis, upper GI bleeding with rapid transit. She will undergo an upper and lower endoscopy. She was explained alternatives, risk, benefits including outstanding bleeding, infection, sepsis, perforation, need for emergent surgery . Show an ASA of 3. Charges/Coding Visit Charges Inpatient E&M: 66939 Init Hosp L2
[2023-07-05 22:00] VITALS: BP 113/70; PULSE 68; RESP 15; TEMP 36.7; O2SAT 95
[2023-07-05] MEDS: Pravastatin 20 MG Tablet PO (22:03)
[2023-07-05] MEDS: Latanoprost 0.005% 1 Bottle 1 DRP RIGHT EYE (22:18)
[2023-07-05] MEDS: Azelastine HCl NASAL.SRY 2 SPRAY NASAL (22:18)
[2023-07-06] VITALS (10 sets, daily range): BP systolic 89–144; BP diastolic 42–84; PULSE 69–80; RESP 12–18; TEMP 36.2–36.6; O2SAT 96–100; BMI 33.8
[2023-07-06] MEDS: 0.9% Normal Saline (1000mL) 1,000 ML 125 ML IV ×2 (03:13→18:24)
--- NOTE | 2023-07-06 05:55 | EKG12_ITS ---
Test Reason : PREOP Blood Pressure : / mmHG Vent. Rate : 064 BPM Atrial Rate : 064 BPM P-R Int : 130 ms QRS Dur : 098 ms QT Int : 436 ms P-R-T Axes : 025 -37 022 degrees QTc Int : 449 ms Normal sinus rhythm Left axis deviation Abnormal ECG When compared with ECG of 04-MAR-2020 17:54, Vent. rate has decreased BY 37 BPM T wave inversion no longer evident in Anterior leads Confirmed by STEVE LOPEZ, CRISTINA ([id number]), scientific publications editor MARIBETH PENA ([id number]) on 07/26/2023 11:33:50 AM Referred By: Confirmed By:CRISTINA WILSON MD
[2023-07-06 06:19] LABS: Absolute Lymphocyte Count 1.62 X10^3/uL (0.83-4.51); Absolute Neutrophil Count 4.8 X10^3/uL (2.0-7.7); Basophil# 0.06 X10^3/uL; Basophil% 0.8 % (0-1); Hematocrit 33.9 % (37-47); Hemoglobin 10.8 g/dL (12.0-15.0); Lymphocyte # 1.62 X10^3/ul (0.83-4.51); Lymphocyte % 21.7 % (19-41); Mean Corp Hgb Conc 31.9 g/dL (32-36); Mean Corpuscular Hgb 32.7 pg (27.0-32.0); Mean Corpuscular Volume 102.7 fL (81-99); Mean Platelet Vol. 10.6 fl (6.2-12.0); Monocyte# 0.67 X10^3/uL; NRBC Flagged by Analyzer 0 % (0-5); Neutrophil # 4.76 X10^3/uL (2.7-7.7); Platelet Count 145 K/mm3 (150-450); RBC Distribution Width CV 12.5 % (11.6-14.6); RBC Distribution Width SD 46.6 fl (35.1-43.9); White Blood Count 7.5 K/mm3 (4.4-11.0)
[2023-07-06 06:29] LABS: International Normalized Ratio 1.1; Prothrombin Time (Protime)PT. 14.7 SECONDS (11.7-14.9)
[2023-07-06 07:18] LABS: Anion Gap 4 (5-15); BUN 4 mg/dL (7-18); BUN/Creat Ratio 8.2 RATIO (10-20); Calcium,Total 7.9 mg/dL (8.5-10.1); Chloride 118 mmol/L (98-107); Creatinine, Serum 0.49 mg/dL (0.55-1.02); EST Glomerular Filtration Rate 134 mL/min (>60); Est Glom Filt Rate - Afr Amer 162 mL/min (>60); Estimated Creatinine Clearance 54.15 ml/min; Glucose 85 mg/dL (74-106); Potassium 3.7 mmol/L (3.5-5.1); Sodium Level 144 mmol/L (136-145); Thyroid Stim Hormone (TSH) 2.25 uIU/mL (0.358-3.74)
[2023-07-06] MEDS: Pantoprazole Sodium 40 MG in 0.9% Normal Saline (100mL MB+) 100 ML 330 MG IV ×2 (08:32→20:54)
[2023-07-06] MEDS: BRIMONIDINE 0.2% 5ML BOTTLE 1 DRP OPHTHALMIC ×2 (08:33→20:45)
[2023-07-06] MEDS: Fluticasone 0.05% 1 SPRAY NASAL.SRY 2 SPRAY NASAL (08:34)
--- NOTE | 2023-07-06 08:48 | PN.HOSP_ITS ---
Reason for Visit Reason for Visit: Diagnoses Hemorrhage of anus and rectum (07/04/23) Subjective Subjective Patient seen currently undergoing preparation for colonoscopy. Objective Data Objective Data Vital Signs: Vital Signs Temp Pulse Resp BP Pulse Ox O2 Del Method 97.2 F L 80 16 144/83 H 96 Room Air 07/06/23 08:20 07/06/23 08:20 07/06/23 08:20 07/06/23 08:20 07/06/23 08:20 07/06/23 08:20 Oxygen Delivery Method Room Air Weight: 63.7 kg Body Mass Index (BMI) 33.8 Intake & Output: Intake and Output for Last 24 Hours 07/04/23 07/05/23 07/06/23 23:59 23:59 23:59 Intake Total 310 / 360 3822.08 / 4892.08 1415.83 / 1415.83 Balance 310 / 360 3822.08 / 4892.08 1415.83 / 1415.83 Lab / Micro Data 07/06/23 05:00 07/06/23 05:00 Labs: Laboratory Results - last 24 hr 07/05/23 09:53: Hgb 11.7 L, Hct 36.1 L 07/06/23 05:00: WBC 7.5, RBC 3.30 L, Hgb 10.8 L, Hct 33.9 L, MCV 102.7 H, MCH 32.7 H, MCHC 31.9 L, RDW Std Deviation 46.6 H, RDW Coeff of Sandy 12.5, Plt Count 145 L, MPV 10.6, Immature Gran % (Auto) 0.500, Neut % (Auto) 64.0, Lymph % (Auto) 21.7, [place] % (Auto) 9.0, Eos % (Auto) 4.0, Baso % (Auto) 0.8, Absolute Neuts (auto) 4.8, Absolute Lymphs (auto) 1.62, Nucleated RBC % 0, PT 14.7, INR 1.1, APTT 26.0, Sodium 144, Potassium 3.7, Chloride 118 H, Carbon Dioxide 22.0, Anion Gap 4 L, BUN 4 L, Creatinine 0.49 L, Estim Creat Clear Calc 54.15, Est GFR (MDRD) Af Amer 162, Est GFR (MDRD) Non-Af 134, BUN/Creatinine Ratio 8.2 L, Glucose 85, Calcium 7.9 L, TSH 2.25 Physical Exam Narrative GENERAL: cooperative HEENT: Atraumatic; normocephalic EYES; Anicteric, Normal Conjunctiva NECK; supple, normal thyroid, RESPIRATORY: Diminished to auscultation CARDIOVASCULAR: Regular S1 S2, GI: soft, normoactive bowel sounds, : No Renal angle tenderness; EXTREMITIES: No edema, no clubbing, MUSCULOSKELETAL: no muscle wasting NEURO: Awake; no lateralizing signs. SKIN: No Rash PSYCH; Flat affect Assessment & Plan Assessment/Plan (1) Rectal bleeding: PLAN: Plan Patient is a 68-year-old lady presenting with painless rectal bleed 1. Acute lower GI bleed ? Suspected to be secondary to diverticular bleed given patient previous history. Admitted to regular nursing floor H&H being monitored every 6 hours. Patient typed and screened with consultation placed to GI ? 07/05/2023 patient continues to pass clots per rectum. Hemoglobin down from 12.8-11.7 we will continue with monitoring of H&H pending eval by GI ? 07/06/2023 being prepped for colonoscopy 2. Valvular heart disease ? With history of aortic valve replacement 3. Hypothyroidism - Patient is on levothyroxine home dose continued 4. Hypertension - Blood pressure controlled, home medications continued with dose adjustment as needed 5. Class I obesity with BMI of 35 ? Weight loss advised 6. Dyslipidemia -Patient is on statin therapy, continued at home dose 7. Osteoporosis ? Patient is on alendronate plan is to resume on discharge 8. GERD ? Patient is on PPI continue 9. DVT prophylaxis ? Chemoprophylaxis contraindicated in view of presentation bilateral SCDs Time spent in the patient's overall evaluation,decision-making process, review of diagnostic data, adjustment of management, discussion with other providers, nursing nursing and ancillary staff involved in patient's care documentation, 35 minutes Charges/Coding Visit Charges Inpatient E&M: 55914 Subs Hosp L2
[2023-07-06] MEDS: Dorzolamide HCL/Timolol 10 ml Bottle 1 DRP OPHTHALMIC ×2 (10:14→20:45)
[2023-07-06] MEDS: Metoprolol(XL)Succ 25 MG Tablet PO (10:15)
[2023-07-06] MEDS: Ipratropium Bromide 0.06% NASAL SPRAY 2 SPRAY NASAL ×3 (10:15→20:44)
--- NOTE | 2023-07-06 14:59 | NURSING ---
Pt to endo per neurosurgery physician.
--- NOTE | 2023-07-06 17:40 | OP.CCLET_ITS ---
07/06/2023 Enrique Moses [id number] [place] [address] Re : Upper GI endoscopy procedure for Vinita Cabral Dear Dr. Moses This procedure was performed on Thursday, July 06, 2023. My impressions and recommendations are as follows: Impressions : - Normal esophagus. - Medium-sized hiatal hernia. - No gross lesions in the third portion of the duodenum. - Normal examined jejunum. - No specimens collected. Recommendations : - Return patient to hospital good for ongoing care. - Resume regular diet. - Continue present medications. My findings are described in the full procedure note, which is enclosed. If I can be of further assistance, please feel free to contact me at . Sincerely, Azam Carpenter, 07/06/2023 5:39:36 PM This report has been signed electronically.
--- NOTE | 2023-07-06 17:40 | OP.EGD_ITS ---
Patient Name: Vinita Cabral Procedure Date: 07/06/2023 4:46 PM Date of : 1955 Age: 68 Procedure: Upper GI endoscopy Indications: Hematochezia Providers: Azam Carpenter DO Medicines: Monitored Anesthesia Care Patient Profile: This is a 68 year old female. Refer to note in patient chart for documentation of history and physical. Complications: No immediate complications. Procedure: Pre-Anesthesia Assessment: - Prior to the procedure, a History and Physical was performed, and patient medications and allergies were reviewed. The patient is competent. The risks and benefits of the procedure and the sedation options and risks were discussed with the patient. All questions were answered and informed consent was obtained. Patient identification and proposed procedure were verified by the physician. Mental Status Examination: alert and oriented. Airway Examination: normal oropharyngeal airway and neck mobility. Respiratory Examination: clear to auscultation. CV Examination: normal. Prophylactic Antibiotics: The patient does not require prophylactic antibiotics. Prior Anticoagulants: The patient has taken no anticoagulant or antiplatelet agents. After reviewing the risks and benefits, the patient was deemed in satisfactory condition to undergo the procedure. The anesthesia plan was to use monitored anesthesia care (MAC). Immediately prior to administration of medications, the patient was re-assessed for adequacy to receive sedatives. The heart rate, respiratory rate, oxygen saturations, blood pressure, adequacy of pulmonary ventilation, and response to care were monitored throughout the procedure. The physical status of the patient was re-assessed after the procedure. After obtaining informed consent, the endoscope was passed under direct vision. Throughout the procedure, the patient's blood pressure, pulse, and oxygen saturations were monitored continuously. The Endoscope was introduced through the mouth, and advanced to the jejunum. The upper GI endoscopy was accomplished without difficulty. The patient tolerated the procedure well. Scope In: 5:00:55 PM Scope Out: 5:02:27 PM Total Procedure Duration Time 0 hours 1 minute 32 seconds Findings: The examined esophagus was normal. A medium-sized hiatal hernia was present. The exam of the stomach was otherwise normal. No gross lesions were noted in the third portion of the duodenum. The examined jejunum was normal. Impression: - Normal esophagus. - Medium-sized hiatal hernia. - No gross lesions in the third portion of the duodenum. - Normal examined jejunum. - No specimens collected. Recommendation: - Return patient to hospital good for ongoing care. - Resume regular diet. - Continue present medications. Procedure Code(s): --- Professional --- 08518, Esophagogastroduodenoscopy, flexible, transoral; diagnostic, including collection of specimen(s) by brushing or washing, when performed (separate procedure) CPT copyright 2021 [employer]. All rights reserved. The codes documented in this report are preliminary and upon chief of anesthesiology review may be revised to meet current compliance requirements. Azam Carpenter DO 07/06/2023 5:39:36 PM This report has been signed electronically. Number of Addenda: 0 Note Initiated On: 07/06/2023 4:46 PM
--- NOTE | 2023-07-06 17:43 | OP.CCLET_ITS ---
07/06/2023 Enrique Moses [address] [place] [address] Re : Colonoscopy procedure for Vinita Cabral Dear Dr. Moses This procedure was performed on Thursday, July 06, 2023. My impressions and recommendations are as follows: Impressions : - Diverticulosis in the recto-sigmoid colon, in the sigmoid colon, in the descending colon and at the splenic flexure. - Blood in the entire examined colon. There was no source of GI bleeding found as there is no active bleeding at this time. GI bleed most likely secondary to diverticular bleeding. - The examined portion of the ileum was normal. - No specimens collected. Recommendations : - Return patient to hospital good for ongoing care. - Full liquid diet. - No recommendation at this time regarding repeat colonoscopy due to no polyps on today's exam. - Continue present medications. My findings are described in the full procedure note, which is enclosed. If I can be of further assistance, please feel free to contact me at . Sincerely, Azam Carpenter, 07/06/2023 5:43:17 PM This report has been signed electronically.
--- NOTE | 2023-07-06 17:43 | OP.COLON_ITS ---
Patient Name: Vinita Cabral Procedure Date: 07/06/2023 5:03 PM Date of : 1955 Age: 68 Procedure: Colonoscopy Indications: Hematochezia Providers: Azam Carpenter DO Medicines: Monitored Anesthesia Care Patient Profile: This is a 68 year old female. Refer to note in patient chart for documentation of history and physical. Last Colonoscopy: 3 years ago. Complications: No immediate complications. Procedure: Pre-Anesthesia Assessment: - Prior to the procedure, a History and Physical was performed, and patient medications and allergies were reviewed. The patient is competent. The risks and benefits of the procedure and the sedation options and risks were discussed with the patient. All questions were answered and informed consent was obtained. Patient identification and proposed procedure were verified by the physician. Mental Status Examination: alert and oriented. Airway Examination: normal oropharyngeal airway and neck mobility. Respiratory Examination: clear to auscultation. CV Examination: normal. Prophylactic Antibiotics: The patient does not require prophylactic antibiotics. Prior Anticoagulants: The patient has taken no anticoagulant or antiplatelet agents. After reviewing the risks and benefits, the patient was deemed in satisfactory condition to undergo the procedure. The anesthesia plan was to use monitored anesthesia care (MAC). Immediately prior to administration of medications, the patient was re-assessed for adequacy to receive sedatives. The heart rate, respiratory rate, oxygen saturations, blood pressure, adequacy of pulmonary ventilation, and response to care were monitored throughout the procedure. The physical status of the patient was re-assessed after the procedure. After I obtained informed consent, the scope was passed under direct vision. Throughout the procedure, the patient's blood pressure, pulse, and oxygen saturations were monitored continuously. The Colonoscope was introduced through the anus and advanced to 10 cm into the ileum. The colonoscopy was performed without difficulty. The patient tolerated the procedure well. The quality of the bowel preparation was adequate. The terminal ileum, the ileocecal valve, the appendiceal orifice and the rectum were photographed. Scope In: 5:05:07 PM Scope Out: 5:31:51 PM Total Procedure Duration Time 0 hours 26 minutes 44 seconds Findings: The perianal and digital rectal examinations were normal. Multiple small and large-mouthed diverticula were found in the recto-sigmoid colon, sigmoid colon, descending colon and splenic flexure. Red blood was found in the entire colon. Lavage of the area was performed using greater than 500 mL of sterile water, resulting in clearance with good visualization. The terminal ileum appeared normal. Impression: - Diverticulosis in the recto-sigmoid colon, in the sigmoid colon, in the descending colon and at the splenic flexure. - Blood in the entire examined colon. There was no source of GI bleeding found as there is no active bleeding at this time. GI bleed most likely secondary to diverticular bleeding. - The examined portion of the ileum was normal. - No specimens collected. Recommendation: - Return patient to hospital good for ongoing care. - Full liquid diet. - No recommendation at this time regarding repeat colonoscopy due to no polyps on today's exam. - Continue present medications. Procedure Code(s): --- Professional --- 58665, Colonoscopy, flexible; diagnostic, including collection of specimen(s) by brushing or washing, when performed (separate procedure) CPT copyright 2021 [employer]. All rights reserved. The codes documented in this report are preliminary and upon polygraph operator review may be revised to meet current compliance requirements. Azam Carpenter DO 07/06/2023 5:43:17 PM This report has been signed electronically. Number of Addenda: 0 Note Initiated On: 07/06/2023 5:03 PM
[2023-07-06] MEDS: Pravastatin 20 MG Tablet PO (20:45)
[2023-07-06] MEDS: 0.9% Saline Lock 10 ML Syringe IV (20:45)
[2023-07-06] MEDS: Azelastine HCl NASAL.SRY 2 SPRAY NASAL (22:52)
[2023-07-06] MEDS: Latanoprost 0.005% 1 Bottle 1 DRP RIGHT EYE (22:52)
[2023-07-07] MEDS: 0.9% Normal Saline (1000mL) 1,000 ML 125 ML IV (03:02)
[2023-07-07 03:06] VITALS: BP 111/60; PULSE 60; RESP 16; TEMP 36.6; O2SAT 97
[2023-07-07] MEDS: Levothyroxine 150 MCG Tablet PO (06:20)
[2023-07-07 07:17] LABS: Absolute Lymphocyte Count 1.45 X10^3/uL (0.83-4.51); Absolute Neutrophil Count 4.4 X10^3/uL (2.0-7.7); Basophil# 0.05 X10^3/uL; Basophil% 0.7 % (0-1); Eosinophil# 0.26 X10^3/uL; Eosinophils% 3.8 % (0-5); Hemoglobin 9.9 g/dL (12.0-15.0); Lymphocyte # 1.45 X10^3/ul (0.83-4.51); Lymphocyte % 21.4 % (19-41); Mean Corp Hgb Conc 31.9 g/dL (32-36); Mean Corpuscular Hgb 32.5 pg (27.0-32.0); Mean Corpuscular Volume 101.6 fL (81-99); Mean Platelet Vol. 10.3 fl (6.2-12.0); Monocyte# 0.56 X10^3/uL; Monocyte% 8.2 % (0-10); NRBC Flagged by Analyzer 0 % (0-5); Neutrophil # 4.43 X10^3/uL (2.7-7.7); Neutrophil % 65.3 % (47-70); Platelet Count 134 K/mm3 (150-450); RBC Distribution Width CV 12.3 % (11.6-14.6); RBC Distribution Width SD 45.7 fl (35.1-43.9); Red Blood Count 3.05 M/mm3 (4.2-5.4); White Blood Count 6.8 K/mm3 (4.4-11.0)
[2023-07-07 07:55] LABS: Anion Gap 2 (5-15); BUN 4 mg/dL (7-18); BUN/Creat Ratio 8.8 RATIO (10-20); Calcium,Total 7.8 mg/dL (8.5-10.1); Chloride 118 mmol/L (98-107); Creatinine, Serum 0.46 mg/dL (0.55-1.02); EST Glomerular Filtration Rate 145 mL/min (>60); Est Glom Filt Rate - Afr Amer 175 mL/min (>60); Estimated Creatinine Clearance 54.15 ml/min; Glucose 79 mg/dL (74-106); Potassium 3.3 mmol/L (3.5-5.1); Sodium Level 144 mmol/L (136-145)
[2023-07-07 09:30] VITALS: BP 128/59; PULSE 60; RESP 16; TEMP 36.4; O2SAT 98
[2023-07-07 10:42] VITALS: PULSE 60
[2023-07-07] MEDS: Metoprolol(XL)Succ 25 MG Tablet PO (10:42)
[2023-07-07] MEDS: Ipratropium Bromide 0.06% NASAL SPRAY 2 SPRAY NASAL ×2 (10:43→14:28)
[2023-07-07] MEDS: Potassium Chloride Oral Tablet 20 MEQ 40 MEQ PO (10:43)
[2023-07-07] MEDS: Fluticasone 0.05% 1 SPRAY NASAL.SRY 2 SPRAY NASAL (10:44)
[2023-07-07] MEDS: Dorzolamide HCL/Timolol 10 ml Bottle 1 DRP OPHTHALMIC ×2 (10:45→22:03)
[2023-07-07] MEDS: BRIMONIDINE 0.2% 5ML BOTTLE 1 DRP OPHTHALMIC ×2 (10:46→22:04)
[2023-07-07] MEDS: Pantoprazole Sodium 40 MG in 0.9% Normal Saline (100mL MB+) 100 ML 330 MG IV ×2 (10:50→21:58)
[2023-07-07 14:25] VITALS: BP 97/62; PULSE 62; RESP 16; TEMP 36.6; O2SAT 97
--- NOTE | 2023-07-07 15:23 | PN.HOSP_ITS ---
Reason for Visit Reason for Visit: Diagnoses Hemorrhage of anus and rectum (07/04/23) Subjective Subjective Patient reports no more blood in stool but has been having multiple episodes of diarrhea Objective Data Objective Data Vital Signs: Vital Signs Temp Pulse Resp BP Pulse Ox O2 Del Method 97.8 F 62 16 97/62 97 Room Air 07/07/23 14:25 07/07/23 14:25 07/07/23 14:25 07/07/23 14:25 07/07/23 14:25 07/07/23 14:25 Oxygen Delivery Method Room Air Weight: 63.7 kg Body Mass Index (BMI) 33.8 Intake & Output: Intake and Output for Last 24 Hours 07/05/23 07/06/23 07/07/23 23:59 23:59 23:59 Intake Total 3822.08 / 4892.08 2635.83 / 2635.83 2377.08 / 2377.08 Output Total 200 / 200 Balance 3822.08 / 4892.08 2635.83 / 2635.83 2177.08 / 2177.08 Lab / Micro Data 07/07/23 06:57 07/07/23 06:57 Labs: Laboratory Results - last 24 hr 07/07/23 06:57: WBC 6.8, RBC 3.05 L, Hgb 9.9 L, Hct 31.0 L, MCV 101.6 H, MCH 32.5 H, MCHC 31.9 L, RDW Std Deviation 45.7 H, RDW Coeff of Sandy 12.3, Plt Count 134 L, MPV 10.3, Immature Gran % (Auto) 0.600, Neut % (Auto) 65.3, Lymph % (Auto) 21.4, [place] % (Auto) 8.2, Eos % (Auto) 3.8, Baso % (Auto) 0.7, Absolute Neuts (auto) 4.4, Absolute Lymphs (auto) 1.45, Nucleated RBC % 0, Sodium 144, Potassium 3.3 L, Chloride 118 H, Carbon Dioxide 24.0, Anion Gap 2 L, BUN 4 L, Creatinine 0.46 L, Estim Creat Clear Calc 54.15, Est GFR (MDRD) Af Amer 175, Est GFR (MDRD) Non-Af 145, BUN/Creatinine Ratio 8.8 L, Glucose 79, Calcium 7.8 L Physical Exam Narrative General: Alert, no apparent distress HEENT: Atraumatic, normocephalic Eyes: Anicteric, normal conjunctiva, extraocular movements grossly intact Neck: Supple Respiratory: Clear to auscultation bilaterally, normal respiratory effort Cardiovascular: Regular rate and rhythm GI: Soft, no rebound, guarding, rigidity nondistended Extremities: No edema Musculoskeletal: Moving all extremities Neuro: No overt focal neurological deficits Skin: No rashes appreciated Psych: Cooperative Assessment & Plan Assessment/Plan (1) Rectal bleeding: PLAN: Plan Patient is a 68-year-old lady presenting with painless rectal bleed 1. Acute lower GI bleed ? Suspected to be secondary to diverticular bleed given patient previous history. Admitted to regular nursing floor H&H being monitored every 6 hours. Patient typed and screened with consultation placed to GI ? 07/05/2023 patient continues to pass clots per rectum. Hemoglobin down from 12.8-11.7 we will continue with monitoring of H&H pending eval by GI ? 07/06/2023 being prepped for colonoscopy -07/07: Colonoscopy with diverticulosis throughout with blood in the entire colon but no source of active bleeding found, presumed to be diverticular in nature. EGD with medium size hiatal hernia, hemoglobin down trended, may be that hemoglobin is now equilibrating and patient also received a decent mount of IV fluids, fluids stopped, will trend. Additionally having diarrhea despite minimal diet and no further laxatives, will check stool studies, will also advance diet 2. Valvular heart disease ? With history of aortic valve replacement -07/07: Reports this is what she takes her aspirin for, will likely hold aspirin short-term and have her discuss with her supervisor beam department upon discharge, she denies any stents 3. Hypothyroidism - Patient is on levothyroxine home dose continued 4. Hypertension - Blood pressure controlled, home medications continued with dose adjustment as needed 5. Class I obesity with BMI of 35 ? Weight loss advised 6. Dyslipidemia -Patient is on statin therapy, continued at home dose 7. Osteoporosis ? Patient is on alendronate plan is to resume on discharge 8. GERD ? Patient is on PPI continue 9. DVT prophylaxis ? Chemoprophylaxis contraindicated in view of presentation bilateral SCDs Time spent in the patient's overall evaluation,decision-making process, review of diagnostic data, adjustment of management, discussion with other providers, nursing nursing and ancillary staff involved in patient's care documentation, 35 minutes Charges/Coding Visit Charges Inpatient E&M: 98758 Subs Hosp L2
[2023-07-07 16:55] VITALS: BP 99/42; PULSE 74; RESP 16; TEMP 36.7; O2SAT 98
--- NOTE | 2023-07-07 19:05 | CASEMGMT ---
EAN SALEEM ROVING TECHNICIAN CM to room to meet with patient for initial transition planning/care coordination assessment. EAN SALEEM introduced self and role at [facility].? Pt voices understanding and consents to assessment at this time.? Pt sitting up in chair in room in no distress at this time.? Pt is A/O at this time and answers all questions appropriately.?? Care providers, pharmacy, and demographics verified/updated at this time. PCP: Dr Moses Specialists: Dr Valdez-cardiology, Dr Martell-urology, Dr Belle for CPAP, Dr Nighat Downey-corporate director of human resources Preferred Pharmacy: [facility] Insurance: [employer] Prescription Benefit: Yes Living Will/HPOA:? Has both LW and HCPOA, who is her brother, Yoan LNOK: Brother/Yoan RICHARDSON. BrotherKeron Living Arrangements: Live alone in one-story home w/one step to enter. Independent w/ADL's and IADL's and manages her own medications. Transportation: Pt states drives self and states no transportation concerns at this time.? Brother takes her to appts that are further away and will take her home @ discharge. DME: ?Pt has a CPAP. Pt states no need for further DME at this time.? HHC/SNF: No hx of SNF. Has had [facility] and [facility] in the past. Denies need for HHC and no needs identified. Pt wishes to return home and states has no concerns with going home at time of discharge.? PLAN: ?Home Roshan SALAZAR RN, CM
[2023-07-07] MEDS: Latanoprost 0.005% 1 Bottle 1 DRP RIGHT EYE (21:58)
[2023-07-07] MEDS: Azelastine HCl NASAL.SRY 2 SPRAY NASAL (21:59)
[2023-07-07] MEDS: Pravastatin 20 MG Tablet PO (22:01)
[2023-07-07 22:18] VITALS: BP 105/45; PULSE 65; RESP 16; TEMP 36.8; O2SAT 97
[2023-07-08 03:00] VITALS: BP 129/72; PULSE 61; RESP 18; TEMP 36.7; O2SAT 95
[2023-07-08] MEDS: Levothyroxine 150 MCG Tablet PO (05:06)
[2023-07-08 06:31] LABS: Absolute Lymphocyte Count 1.45 X10^3/uL (0.83-4.51); Absolute Neutrophil Count 4.4 X10^3/uL (2.0-7.7); Basophil# 0.04 X10^3/uL; Basophil% 0.6 % (0-1); Eosinophil# 0.34 X10^3/uL; Eosinophils% 4.9 % (0-5); Hematocrit 31.2 % (37-47); Hemoglobin 10.3 g/dL (12.0-15.0); Lymphocyte # 1.45 X10^3/ul (0.83-4.51); Mean Corpuscular Hgb 32.8 pg (27.0-32.0); Mean Corpuscular Volume 99.4 fL (81-99); Mean Platelet Vol. 10.4 fl (6.2-12.0); Monocyte# 0.66 X10^3/uL; Monocyte% 9.6 % (0-10); NRBC Flagged by Analyzer 0 % (0-5); Neutrophil # 4.36 X10^3/uL (2.7-7.7); Neutrophil % 63.3 % (47-70); Platelet Count 124 K/mm3 (150-450); RBC Distribution Width CV 12.7 % (11.6-14.6); RBC Distribution Width SD 45.6 fl (35.1-43.9); Red Blood Count 3.14 M/mm3 (4.2-5.4); White Blood Count 6.9 K/mm3 (4.4-11.0)
[2023-07-08 07:31] LABS: Anion Gap 4 (5-15); BUN 7 mg/dL (7-18); BUN/Creat Ratio 12.9 RATIO (10-20); Calcium,Total 8.3 mg/dL (8.5-10.1); Chloride 117 mmol/L (98-107); Creatinine, Serum 0.54 mg/dL (0.55-1.02); EST Glomerular Filtration Rate 119 mL/min (>60); Est Glom Filt Rate - Afr Amer 143 mL/min (>60); Estimated Creatinine Clearance 54.15 ml/min; Glucose 92 mg/dL (74-106); Potassium 3.7 mmol/L (3.5-5.1); Sodium Level 144 mmol/L (136-145)
[2023-07-08 08:30] VITALS: BP 142/68; PULSE 55; RESP 16; TEMP 36.1; O2SAT 97
[2023-07-08] MEDS: Ipratropium Bromide 0.06% NASAL SPRAY 2 SPRAY NASAL (08:32)
[2023-07-08] MEDS: Fluticasone 0.05% 1 SPRAY NASAL.SRY 2 SPRAY NASAL (08:32)
[2023-07-08] MEDS: BRIMONIDINE 0.2% 5ML BOTTLE 1 DRP OPHTHALMIC (08:33)
[2023-07-08] MEDS: Dorzolamide HCL/Timolol 10 ml Bottle 1 DRP OPHTHALMIC (08:34)
[2023-07-08] MEDS: Pantoprazole Sodium 40 MG Tablet PO (08:38)
--- NOTE | 2023-07-08 10:20 | DS.PCM_ITS ---
Providers Date of Admission: 07/07/23 Date of Discharge: 07/08/23 Primary Care Physician: Dr. Enrique Moses MD Consultations 07/04/23 16:07 Consult: Gastroenterology Routine Consulting Provider: [facility] Reason for Consult: GI bleed EMERGENT Consult: No MD Notified: Yes Date Notified: 07/04/23 Time Notified: 12:49 Method of Notification: ED Physician Initiated Reason For Visit: GI BLEED Diagnosis Discharge Diagnosis (1) Rectal bleeding: Status: Acute Code(s): K62.5 - Hemorrhage of anus and rectum Plan #Acute lower GI bleed suspected to be diverticular # Valvular heart disease With history of aortic valve replacement #Hypothyroidism #Hypertension #Class I obesity with BMI of 35 #Dyslipidemia #Osteoporosis #GERD Medications at Discharge Home Medications azelastine 137 mcg (0.1 %) nasal spray aerosol 2 spray QHS allergies 01/19/16 fluticasone propionate 50 mcg/actuation nasal spray,suspension 2 spray DAILY allergies 01/19/16 levothyroxine 150 mcg tablet 150 mcg PO DAILY thyroid 01/19/16 pravastatin 20 mg tablet 20 mg PO QHS cholesterol 01/19/16 ipratropium bromide 42 mcg (0.06 %) nasal spray 2 spray 4X/DAY sob 05/21/17 latanoprost 0.005 % eye drops 1 drp QHS glaucoma 07/24/17 multivitamin with folic acid 400 mcg tablet (Thera) 1 tab PO DAILY supplement 07/24/17 alendronate 70 mg tablet 70 mg PO DOWLING bones 03/04/20 ascorbic acid (vitamin C) 500 mg tablet 500 mg PO DAILY supplement 03/04/20 aspirin 81 mg tablet,delayed release 162 mg PO DAILY@0800 heart health 03/04/20 calcium carbonate-vitamin D3 600 mg-125 unit tablet 1 tab PO DAILY supplement 03/04/20 metoprolol succinate 25 mg tablet,extended release 24 hr 25 mg PO DAILY heart pantoprazole 40 mg tablet,delayed release 40 mg PO DAILY gerd 03/04/20 alendronate 70 mg tablet 70 mg PO Q7D@0700 04/15/20 brimonidine 0.2 % eye drops 1 drp ophthalmic (eye) BID 07/04/23 dorzolamide 22.3 mg-timolol 6.8 mg/mL eye drops 1 drp ophthalmic (eye) Q12H 07/04/23 Hospital Course Procedures Colonoscopy and EGD Summary of Care Provided Minutes Spent on Discharge: 35 Hospital Course: 68-year-old female with history of hypertension, hypothyroidism, glaucoma and hypertension presented to [facility] 07/04/2023 with bleeding per rectum. She had upper and lower endoscopies and Colonoscopy with diverticulosis throughout with blood in the entire colon but no source of active bleeding found, presumed to be diverticular in nature. EGD with medium size hiatal hernia and no other significant abnormalities. Bleeding resolved and hemoglobin stabilized, some of the drops seem to be dilutional secondary to generous hydration. Patient's discharge was delayed due to new diarrhea that was worsening throughout the day despite no further laxatives and no significant food intake. Additionally her hemoglobin had been dropping and it was unclear if there could be residual pathology versus hemodilution, fluids stopped and hemoglobin stabilized and while stool studies ordered due to her diarrhea this resolved on its own. On day of discharge patient no complaints. Discharge instructions as follows: DISCHARGE INSTRUCTIONS PLEASE READ *Please take this with you to your next doctors appointment* -Would recommend holding your aspirin and discussing with your dry placer machine operator -If you have any further signs or symptoms of bleeding please return to the emergency department -You will need to follow-up with Dr. Carpenter with GI in his office upon discharge. Please call his office to schedule your hospital follow-up appoin miranda (ph. [phone]) -Would recommend lab work (CBC) to check your hemoglobin in 2 to 3 days through your primary care physician's office. Please call their office upon discharge to obtain order for lab work. -Please call your primary care provider's office upon discharge to schedule a hospital follow up within 1 week. -For any concerning signs or symptoms please call 911 or proceed to the nearest emergency department Physical Exam Narrative General: Alert, no apparent distress HEENT: Atraumatic, normocephalic Eyes: Anicteric, normal conjunctiva, extraocular movements grossly intact Neck: Supple Respiratory: Clear to auscultation bilaterally, normal respiratory effort Cardiovascular: Regular rate and rhythm GI: Soft, no rebound, guarding, rigidity nondistended Extremities: No edema Musculoskeletal: Moving all extremities Neuro: No overt focal neurological deficits Skin: No rashes appreciated Psych: Cooperative Weight / BMI Weight Weight: 63.7 kg Body Mass Index (BMI) 33.8 ABG / Lab / Microbiology Data 07/08/23 05:59 07/08/23 05:59 Laboratory: Laboratory Results - last 24 hr 07/08/23 05:59: WBC 6.9, RBC 3.14 L, Hgb 10.3 L, Hct 31.2 L, MCV 99.4 H, MCH 32.8 H, MCHC 33.0, RDW Std Deviation 45.6 H, RDW Coeff of [place] 12.7, Plt Count 124 L, MPV 10.4, Immature Gran % (Auto) 0.600, Neut % (Auto) 63.3, Lymph % (Auto) 21.0, [place] % (Auto) 9.6, Eos % (Auto) 4.9, Baso % (Auto) 0.6, Absolute Neuts (auto) 4.4, Absolute Lymphs (auto) 1.45, Nucleated RBC % 0, Sodium 144, Potassium 3.7, Chloride 117 H, Carbon Dioxide 23.0, Anion Gap 4 L, BUN 7, Creatinine 0.54 L, Estim Creat Clear Calc 54.15, Est GFR (MDRD) Af Amer 143, Est GFR (MDRD) Non-Af 119, BUN/Creatinine Ratio 12.9, Glucose 92, Calcium 8.3 L D/C Instructions Discharge Diet: Light diet - advance as tolerated Meaningful Use Info Meaningful Use Diagnoses (Choose all that apply): None applicable Discharge Plan Admission Admit Date/Time: 07/07/23 15:56 Primary Reason for Your Visit: Lower GI bleed Attending Provider: Kathryn Momin Primary Care Provider: Enrique Moses Consulting Providers: Jonathan Jo Instructions Patient Instructions: ED Lower GI Bleeding (Stable) Additional Instructions / Restrictions: DISCHARGE INSTRUCTIONS PLEASE READ *Please take this with you to your next doctors appointment* -Would recommend holding your aspirin and discussing with your dry placer machine operator -If you have any further signs or symptoms of bleeding please return to the emergency department -You will need to follow-up with Dr. Carpenter with GI in his office upon disch alena. Please call his office to schedule your hospital follow-up appointment (ph. [phone]) -Would recommend lab work (CBC) to check your hemoglobin in 2 to 3 days through your primary care physician's office. Please call their office upon discharge to obtain order for lab work. -Please call your primary care provider's office upon discharge to schedule a hospital follow up within 1 week. -For any concerning signs or symptoms please call 911 or proceed to the nearest emergency department Discharge Orders/Prescriptions Prescriptions: Continued levothyroxine 150 MCG tablet 150 mcg PO DAILY Patient Comments: DOES NOT TAKE SUN AND SUNDAY- for thyroid pravastatin 20 MG tablet 20 mg PO QHS Patient Comments: CHOLESTEROL azelastine 1 SPRAY aerosol,spray 2 spray NASAL QHS Patient Comments: nasal congestion fluticasone propionate 1 SPRAY spray,suspension 2 spray NASAL DAILY Patient Comments: NASAL CONGESTION ipratropium bromide 1 SPRAY spray,non-aerosol 2 spray NASAL 4X/DAY latanoprost 1 DROP bottle 1 drp Right Eye QHS Rx Instructions: RIGHT EYE multivitamin with folic acid [Thera] 1 TABLET tablet 1 tab PO DAILY alendronate 70 MG tablet 70 mg PO DOWLING ascorbic acid (vitamin C) 500 MG tablet 500 mg PO DAILY metoprolol succinate 25 MG tablet extended release 24 hr 25 mg PO DAILY calcium carbonate-vitamin D3 1 EACH tablet 1 tab PO DAILY pantoprazole 40 MG tablet 40 mg PO DAILY alendronate 70 MG tablet 70 mg PO Q7D@0700 brimonidine 0.2 % drops 1 drp ophthalmic (eye) BID dorzolamide-timolol 22.3-6.8 mg/mL drops 1 drp ophthalmic (eye) Q12H Held aspirin 81 MG tablet 162 mg PO DAILY@0800 Hold Instructions: Resume on 08/22/23. Hold until discussing necessity with your dry placer machine operator Referrals / Follow Up: Azam Carpenter DO [Med Staff - Active Staff] - Enrique Moses MD [Primary Care Provider] - Within 1 Week Disposition Disposition (needs filled in before D/C Order can be placed): Home, Self Care Charges/Coding Visit Charges Inpatient E&M: 54808 Disch Hosp >30min
== END 2023-07-08 13:02 | disposition home or self-care (01) | DRG 379 ==
LOC: ED 10:44 → PCU 14:21
PROVIDERS: Anesthesiology; Internal Medicine Gastroenterology; Admitting Provider Internal Medicine; Emergency Provider Student in an Organized Health Care Education/Training Program; PCP Internal Medicine; Visit Provider Internal Medicine
PROC: 0DJD8ZZ Inspection of Lower Intestinal Tract, Via Natural or Artificial Opening Endoscopic (ICD-10-PCS; CPT 45378; principal; 2023-07-06 15:55)
DX: K57.31 Diverticulosis of large intestine without perforation or abscess with bleeding (principal); E03.9 Hypothyroidism, unspecified; I10 Essential (primary) hypertension; K21.9 Gastro-esophageal reflux disease without esophagitis; E78.00 Pure hypercholesterolemia, unspecified; K44.9 Diaphragmatic hernia without obstruction or gangrene; E66.9 Obesity, unspecified; Z95.2 Presence of prosthetic heart valve; M81.0 Age-related osteoporosis without current pathological fracture; Z68.35 Body mass index [BMI] 35.0-35.9, adult; Z79.82 Long term (current) use of aspirin; Z79.899 Other long term (current) drug therapy
CPT/HCPCS: 36415; 74177; 80048; 80053; 83735; 84100; 84443; 85014; 85018; 85025; 85610; 85730; 86850; 86900; 86901; 93005; 99284; J7030; Q9967; A4216; J2405

== ENCOUNTER → 2024-07-24 | Outpatient (CLI) | payer MEDICARE, SELFPAY ==
[2020-07-12 07:13] VITALS: BMI 33.4
[2024-07-24 13:06] LABS: Erythrocyte Sedimentation Rate 17 mm/hr (0-30)
[2024-07-24 13:08] LABS: Absolute Lymphocyte Count 1.56 X10^3/uL (0.83-4.51); Absolute Neutrophil Count 5.2 X10^3/uL (2.0-7.7); Basophil# 0.03 X10^3/uL; Basophil% 0.4 % (0-1); Eosinophil# 0.11 X10^3/uL; Eosinophils% 1.5 % (0-5); Hematocrit 38.4 % (37-47); Hemoglobin 12.6 g/dL (12.0-15.0); Lymphocyte # 1.56 X10^3/ul (0.83-4.51); Lymphocyte % 20.9 % (19-41); Mean Corp Hgb Conc 32.8 g/dL (32-36); Mean Corpuscular Hgb 32.7 pg (27.0-32.0); Mean Corpuscular Volume 99.7 fL (81-99); Mean Platelet Vol. 10.2 fl (6.2-12.0); Monocyte# 0.59 X10^3/uL; Monocyte% 7.9 % (0-10); NRBC Flagged by Analyzer 0 % (0-5); Neutrophil # 5.16 X10^3/uL (2.7-7.7); Neutrophil % 68.9 % (47-70); Platelet Count 207 K/mm3 (150-450); RBC Distribution Width CV 12.4 % (11.6-14.6); RBC Distribution Width SD 45.1 fl (35.1-43.9); Red Blood Count 3.85 M/mm3 (4.2-5.4); White Blood Count 7.5 K/mm3 (4.4-11.0)
[2024-07-24 18:01] LABS: Ferritin 76 ng/mL (8-252); Iron 75 ug/dL (50-170); Iron Binding Capacity,Total 378 ug/dL (250-450); LDH 280 U/L (84-246)
[2024-07-30 16:10] LABS: Albumin 3.9 g/dL (2.9-4.4); Alpha-1-Globulins 0.3 g/dL (0.0-0.4); Alpha-2-Globulins 0.7 g/dL (0.4-1.0); Cytoplasmic Ab (C-ANCA) <1:20 titer (Neg:<1:20); Endomysial Antibody IgA Negative (Negative); Gamma Globulin 0.6 g/dL (0.4-1.8); Haptoglobin 74 mg/dL (37-355); Immunoglobulin A 182 mg/dL (87-352); Immunoglobulin E 6 IU/mL (6-495); Immunoglobulin G 734 mg/dL (586-1602); Immunoglobulin M 60 mg/dL (26-217); PROEL- TOTAL PROTEIN 6.8 g/dL (6.0-8.5); Perinuclear Ab (P-ANCA) <1:20 titer (Neg:<1:20); t-Transglutaminase IgA <2 U/mL (0-3)
[2024-07-30 18:08] LABS: Anti-Centromere B Ab <0.2 AI (0.0-0.9); Anti-Chromatin <0.2 AI (0.0-0.9); Anti-Jo <0.2 AI (0.0-0.9); Anti-Scleroderma-70 AB <0.2 AI (0.0-0.9); Anti-dsDNA Ab 1 IU/mL (0-9); Beef <0.10 kU/L (Class 0); Chocolate <0.10 kU/L (Class 0); Codfish <0.10 kU/L (Class 0); Corn <0.10 kU/L (Class 0); Egg, Whole <0.10 kU/L (Class 0); Milk (Cow) <0.10 kU/L (Class 0); Mussels <0.10 kU/L (Class 0); Peanut <0.10 kU/L (Class 0); Pork <0.10 kU/L (Class 0); RNP Ab <0.2 AI (0.0-0.9); SJOGREN'S Anti-SS-A test < 0.2 AI (0.0-0.9); SJOGREN'S Anti-SS-B test < 0.2 AI (0.0-0.9); Salmon <0.10 kU/L (Class 0); Shrimp <0.10 kU/L (Class 0); Smith Ab <0.2 AI (0.0-0.9); Soybean <0.10 kU/L (Class 0); Tuna <0.10 kU/L (Class 0); Wheat <0.10 kU/L (Class 0)
== END | disposition home or self-care (01) ==
LOC: LAB 11:41
PROVIDERS: PCP Internal Medicine; Referring Provider Internal Medicine Gastroenterology; Visit Provider Internal Medicine Gastroenterology
DX: D64.9 Anemia, unspecified (principal); K92.2 Gastrointestinal hemorrhage, unspecified
CPT/HCPCS: 36415; 82728; 82784; 82785; 83010; 83516; 83540; 83550; 83615; 84165; 85025; 85652; 86003; 86005; 86037; 86140; 86225; 86235; 86255; 86334

== ENCOUNTER → 2025-07-24 | Outpatient (CLI) | payer OTHER, SELFPAY ==
[2020-07-12 07:13] VITALS: BMI 33.4
[2025-07-24 11:51] LABS: Hematocrit 38.2 % (37-47); Hemoglobin 13.6 g/dL (12.0-15.0); Immature Granulocytes Count 0.020 X10^3/uL (0.0-0.0); Immature Reticulocyte Fraction 14.00 % (3.00-15.90); Mean Corp Hgb Conc 35.6 g/dL (32-36); Mean Corpuscular Volume 97.9 fL (81-99); Mean Platelet Vol. 10.9 fl (6.2-12.0); NRBC Flagged by Analyzer 0 % (0-5); Platelet Count 199 K/mm3 (150-450); RBC Distribution Width CV 12.3 % (11.6-14.6); RBC Distribution Width SD 44.0 fl (35.1-43.9); Red Blood Count 3.90 M/mm3 (4.2-5.4); Reticulocyte Count 2.02 % (0.5-1.5); White Blood Count 6.5 K/mm3 (4.4-11.0)
[2025-07-24 12:38] LABS: Ferritin 139 ng/mL (22-378); Iron 105 ug/dL (50-170); LDH 274 U/L (84-246)
[2025-07-28 15:08] LABS: Albumin 3.7 g/dL (2.9-4.4); Gamma Globulin 0.7 g/dL (0.4-1.8); Immunoglobulin A 181 mg/dL (87-352); Immunoglobulin G 759 mg/dL (586-1602); Immunoglobulin M 53 mg/dL (26-217); PROEL- TOTAL PROTEIN 6.5 g/dL (6.0-8.5)
== END | disposition home or self-care (01) ==
LOC: LAB 10:47
PROVIDERS: PCP Internal Medicine; Referring Provider Internal Medicine Gastroenterology; Visit Provider Internal Medicine Gastroenterology
DX: D62 Acute posthemorrhagic anemia (principal)
CPT/HCPCS: 36415; 82728; 82784; 83010; 83540; 83615; 84165; 85025; 85045; 86334

== ENCOUNTER 2025-09-03 08:39 | Emergency (ER) | payer MEDICARE, SELFPAY ==
[2020-07-12 07:13] VITALS: BMI 33.4
[2025-09-03] VITALS (8 sets, daily range): BP systolic 114–145; BP diastolic 72–82; PULSE 51–66; RESP 16–20; TEMP 36.6–36.9; O2SAT 92–97; BMI 36.1
--- NOTE | 2025-09-03 | CT_ITS ---
PROCEDURE: SPINE CERVICAL WITHOUT CONTRAS 09/03/2025 REASON FOR EXAM: FALL TECHNIQUE: Procedure Code: CTSPC Modality: CT Procedure: SPINE CERVICAL WITHOUT CONTRAS Coronal and Sagittal reconstruction series were provided. One or more dose reduction techniques were used (e.g., Automated exposure control, adjustment of the mA and/or kV according to patient size, use of iterative reconstruction technique. RADIATION DOSE SUMMARY: CTDlvol: 21.46 mGy DLP: 456.85 mGycm COMPARISON: Prior study dated October 28, 2021. FINDINGS: Alignment: Normal cervical lordosis. Vertebrae: Multilevel spondylosis. Soft Tissues: No prevertebral soft tissue swelling. Other: C1-2: Degenerative changes of the atlantoaxial joint. C2-3: Unremarkable C3-4: Mild degree of disc space narrowing. Spondylosis. Uncovertebral arthrosis. Mild degree of bilateral neural foraminal stenosis. C4-5: Marked degree of disc space narrowing. Spondylosis. Uncovertebral arthrosis. Facet joint osteoarthritis and hypertrophy. Mild bilateral neural foraminal stenosis. C5-6: Mild degree of disc space narrowing. Spondylosis. Uncovertebral arthrosis as well as facet joint osteoarthritis and hypertrophy with narrowing of both neural foraminal stenosis. C6-7: Marked degree of disc space narrowing. Spondylosis. Uncovertebral arthrosis. Facet joint osteoarthritis. Mild degree of bilateral neural foraminal stenosis. C7-T1: Moderate degree of disc space narrowing. CT/Spine Cervical without Contras IMPRESSION: DEGENERATIVE CHANGES OF THE CERVICAL SPINE. NO EVIDENCE OF SIGNIFICANT OSSEOUS CENTRAL CANAL OR NEURAL FORAMINAL STENOSIS. Reading Location: [facility]
--- NOTE | 2025-09-03 08:53 | CT_ITS ---
PROCEDURE: BRAIN/HEAD WITHOUT CONTRAST 09/03/2025 REASON FOR EXAM: FALL, HIT HEAD TECHNIQUE: Procedure Code: CTBR Modality: CT Procedure: BRAIN/HEAD WITHOUT CONTRAST Coronal and Sagittal reconstruction series were provided. One or more dose reduction techniques were used (e.g., Automated exposure control, adjustment of the mA and/or kV according to patient size, use of iterative reconstruction technique. COMPARISON: 10/28/2021. FINDINGS: No acute intracranial hemorrhage. No midline shift. The ventricles are normal in size and configuration. No extra-axial fluid collection is identified. No fracture. The calvarium is intact. The visualized paranasal sinuses and mastoid air cells are clear. Small scalp hematoma over the midline of the posterior calvarium. CT/Brain/Head without Contrast IMPRESSION: No acute intracranial CT abnormality. Small scalp hematoma, posterior calvarium. Reading Location: [id number]
--- NOTE | 2025-09-03 08:53 | CT_ITS ---
PROCEDURE: SPINE LUMBAR WITHOUT CONTRAST 09/03/2025 REASON FOR EXAM: FALL TECHNIQUE: Procedure Code: CTSPL Modality: CT Procedure: SPINE LUMBAR WITHOUT CONTRAST Coronal and Sagittal reconstruction series were provided. One or more dose reduction techniques were used (e.g., Automated exposure control, adjustment of the mA and/or kV according to patient size, use of iterative reconstruction technique COMPARISON: None. RADIATION DOSE SUMMARY: CTDlvol: 36.39 mGy DLP: 1212.12 mGycm FINDINGS: Vertebrae: No acute bony abnormalities. Alignment: Normal alignment. L1-2: Disc bulge. Disc osteophyte complex. Facet joint arthropathy. Moderate bilateral foramina stenosis. Severe canal stenosis. L2-3: Disc bulge. Facet joints arthropathy. Mild inferior right foramina stenosis. Mild canal stenosis. L3-4: Disc bulge. Facet joint arthropathy. Mild inferior bilateral foramina stenosis. Mild canal stenosis. L4-5: Disc bulge. Facet joint arthropathy. Moderate bilateral foramina stenosis. Moderate canal stenosis. L5-S1: The last disc is designated as L5-S1. Facet joints arthropathy. No significant foraminal or canal stenosis. Sacrum: Unremarkable. Soft tissues: Multiple bilateral kidney stones measuring [address]/Spine Lumbar without Contrast IMPRESSION: No acute injury to the lumbar spine. Degenerate changes predominantly for moderate canal stenosis and severe bilater al foraminal stenosis at L1-L2. Multiple bilateral kidney stones measuring 5 mm. Reading Location: [facility]
--- NOTE | 2025-09-03 09:35 | EX.ED.GENINJ ---
HPI History of Present Illness Chief Complaint: Laceration Narrative Narrative: Patient is a 70-year-old female presenting to the emergency department after mechanical fall. Patient has a past medical history of symptomatic anemia, lightheadedness, hypothyroidism, hyperlipidemia. Patient states that she was walking outside and slipped on ice causing her to fall backwards and striking the back of her head. She denies any loss of consciousness. She is not on any oral anticoagulation. She endorses low back pain. Denies any neck pain. Denies any pain in her hips or extremities. Denies any symptoms that caused her to fall, reports that she just slipped on ice. Up-to-date tetanus within the last 5 years. [facility] Medical History Anemia Hiatal hernia CPAP (continuous positive airway pressure) dependence Sleep apnea High cholesterol REMOVAL BILATERAL CATARACTS APONEUROPATHY RIGHT HAND LEFT HAND SURGERY DUPUYTREN'S CONTRACTUR COCHLEAR IMPLANT LEFT EAR Shingles Seborrheic keratoses Gilbert's syndrome, unspecified Osteopenia Internal hemorrhoids without complication Goiter Glaucoma Hypertension Diverticulitis Chronic rhinitis Chronic left shoulder pain Home Medications ?Medication ?Instructions ?Recorded ?Last Taken ?Type azelastine 137 mcg (0.1 %) nasal 2 spray QHS allergies 01/19/16 07/04/23 History spray fluticasone propionate 50 2 spray DAILY allergies 01/19/16 Unknown History mcg/actuation nasal spray,suspension levothyroxine 150 mcg tablet 150 mcg PO DAILY thyroid 01/19/16 03/04/20 History latanoprost 0.005 % eye drops 1 drp QHS glaucoma 07/24/17 03/03/20 History multivitamin with folic acid 400 1 tab PO DAILY supplement 07/24/17 07/04/23 History mcg tablet (Thera) ascorbic acid (vitamin C) 500 mg 500 mg PO DAILY supplement 03/04/20 07/04/23 History tablet aspirin 81 mg tablet,delayed 162 mg PO DAILY@0800 heart [facility] 03/04/20 07/04/23 History release Held on 07/08/23. Instructions: Resume on 08/22/23. Hold until discussing necessity with your garage door technician calcium carbonate-vitamin D3 600 1 tab PO DAILY supplement 03/04/20 07/04/23 History mg-125 unit tablet metoprolol succinate 25 mg 25 mg PO DAILY heart 03/04/20 03/04/20 History tablet,extended release 24 hr pantoprazole 40 mg tablet,delayed 40 mg PO DAILY gerd 03/04/20 03/04/20 History release dorzolamide 22.3 mg-timolol 6.8 1 drp ophthalmic (eye) Q12H 07/04/23 07/04/23 History mg/mL eye drops atorvastatin 20 mg tablet 20 mg PO QDAY 07/24/24 Unknown History folic acid 1 mg tablet 1 mg PO DAILY #90 tabs 11/05/24 Unknown Rx acetaminophen 500 mg capsule 500 mg PO Q6H PRN 01/22/25 Unknown History celecoxib 100 mg capsule 100 mg PO QDAY PRN 01/22/25 Unknown History furosemide 20 mg tablet 20 mg PO QDAY 01/22/25 Unknown History oxybutynin chloride 5 mg tablet 5 mg PO QDAY 01/22/25 Unknown History sulfasalazine 500 mg tablet 1 g (2 x 500 mg) PO DAILY 90 days 06/16/25 Unknown Rx #180 tabs Allergy/AdvReac Type Severity Reaction Status Date / Time amoxicillin Allergy Rash Verified 09/03/25 08:46 mold Allergy PT UNSURE Verified 09/03/25 08:46 OF REACTION Surgical History H/O cardiac catheterization H/O right heart catheterization S/P AVR (aortic valve replacement) Social History Smoking Status: Never smoker ROS ROS ED ROS Narrative See HPI EXAM Physical Exam Narrative Exam Narrative: Vital signs: Reviewed General: Alert and oriented x 3. Hard of hearing. No acute distress. Nontoxic. HEENT: Head is normocephalic. There is swelling to the left sided parietal region and occiput. There is dried blood and a small superficial abrasion, no laceration or gaping wound. Sinuses nontender, pupils equal round and reactive. Extraocular movements intact. Nares are patent. No septal hematoma. Oropharynx and throat exams normal. No oropharyngeal trauma. Neck: Supple without lymphadenopathy nontender. No midline cervical spinal tenderness to palpation. No step-offs or deformities. Cardiovascular: Regular rate and rhythm, no murmurs. No rubs or gallops. Normal S1 and S2 Respiratory: Clear to auscultation bilaterally. No wheezes, rales, rhonchi Chest: Chest wall atraumatic and nontender to palpation. No crepitus, erythema or ecchymosis. Abdominal: Soft and nontender. Normal bowel sounds. No guarding or rebound. Nonsurgical abdomen Extremities: There is no midline thoracic spinal tenderness to palpation. There is lower midline lumbar spinal tenderness to palpation. There is also bilateral paraspinal lumbar tenderness to palpation. No rashes, ecchymosis or erythema to the back. Hips are stable and nontender to palpation. Extremities are atraumatic and nontender to palpation with normal active range of motion of all. Normal sensation. Skin: No rash or redness. Neurological: Cranial nerves II through XII are grossly intact. Normal strength and sensation. Normal cerebellar function The rest of the physical exam is unremarkable Const Vital Signs: 09/03/25 08:41 09/03/25 10:39 Temperature 98.4 F Temperature Source Oral Pulse Rate 53 L 59 L Respiratory Rate 18 17 Blood Pressure 145/78 H 141/80 H Blood Pressure Mean 100 100 Pulse Ox 94 97 Oxygen Delivery Method Room Air Room Air MDM MDM MDM Narrative Medical decision making narrative: Patient is a 70-year-old female presenting to the emergency department after mechanical fall with head trauma. Patient was seen and examined. Vitals are stable. Patient resting in bed comfortably no acute distress. Patient states that she slipped on the ice, I do not think there is any reason to order labs or EKG. She did strike her head and given her age I will order CT imaging of her head and neck. I will also obtain CT imaging of her lumbar spine given her midline tenderness and trauma. No other sources of pain or traumatic findings on exam. For the small abrasion on her head it does not require repair. Her tetanus is up-to-date. CT of brain shows no acute intracranial CT abnormality. Small scalp hematoma, posterior calvarium. CT cervical spine shows degenerative changes, no acute fracture or dislocation. CT lumbar spine shows no acute injury. Incidental findings of multiple kidney stones that patient is aware of and follows with a sound technician for. Patient was updated on the negative CT imaging. Patient ambulated and had pain which caused her difficulty ambulating. She was given Toradol and then will retry ambulation. Patient ambulated much better after toradol, felt a little nauseous likely from the pain and head injury. Given ODT zofran, tolerated PO. On reevaluation the patient reports that she was at physical therapy for chronic back pain. Likely an exacerbation of her chronic back pain from the fall. Recommended Motrin and Tylenol at home for pain control, rest, heat versus ice. This was discussed with her. States she does live at home alone however she has neighbors and family that check on her often. Patient discharged from the Emergency Department. I do not feel that the patient's evaluation reveals any acute reason for admission at this time. I instructed them to either follow-up with their primary care physician or promptly return to the Emergency Department for reevaluation should symptoms worsen or new symptoms develop. I explained what symptoms would indicate the need to return to the emergency department. Shared decision making was used. The patient voiced understanding of the treatment plan and is agreeable with it. Clinical impression Mechanical fall Head trauma Low back pain History & Record Review Discussion w/independent historian: EMS personnel and Patient Radiography Diagnostic Testing: Clinical Impression(s) from Imaging Studies Cervical Spine CT 09/03/25 00:00 IMPRESSION: DEGENERATIVE CHANGES OF THE CERVICAL SPINE. NO EVIDENCE OF SIGNIFICANT OSSEOUS CENTRAL CANAL OR NEURAL FORAMINAL STENOSIS. Reading Location: [facility] 09/03/25 08:53 IMPRESSION: No acute intracranial CT abnormality. Small scalp hematoma, posterior calvarium. Reading Location: [id number] Lumbar Spine CT 09/03/25 08:53 IMPRESSION: No acute injury to the lumbar spine. Degenerate changes predominantly for moderate canal stenosis and severe bilateral foraminal stenosis at L1-L2. Multiple bilateral kidney stones measuring 5 mm. Reading Location: [id number] Discharge Plan Triage Chief Complaint: Laceration ED Provider: Tona Lock Dx/Rx/DC Orders Clinical Impression: Fall, Low back pain, Head trauma Instructions: ED Back Pain (Acute or Chronic), ED Head Injury (Adult), ED Fall Prevention Prescriptions: No Action atorvastatin 20 mg tablet 20 mg PO QDAY acetaminophen 500 mg capsule 500 mg PO Q6H PRN celecoxib 100 mg capsule 100 mg PO QDAY PRN furosemide 20 mg tablet 20 mg PO QDAY oxybutynin chloride 5 mg tablet 5 mg PO QDAY levothyroxine 150 MCG tablet 150 mcg PO DAILY Patient Comments: DOES NOT TAKE SUN AND SUNDAY- for thyroid azelastine 1 SPRAY aerosol,spray 2 spray NASAL QHS Patient Comments: nasal congestion fluticasone propionate 1 SPRAY spray,suspension 2 spray NASAL DAILY Patient Comments: NASAL CONGESTION latanoprost 1 DROP bottle 1 drp Right Eye QHS Rx Instructions: RIGHT EYE multivitamin with folic acid [Thera] 1 TABLET tablet 1 tab PO DAILY aspirin 81 MG tablet 162 mg PO DAILY@0800 ascorbic acid (vitamin C) 500 MG tablet 500 mg PO DAILY metoprolol succinate 25 MG tablet extended release 24 hr 25 mg PO DAILY calcium carbonate-vitamin D3 1 EACH tablet 1 tab PO DAILY pantoprazole 40 MG tablet 40 mg PO DAILY dorzolamide-timolol 22.3-6.8 mg/mL drops 1 drp ophthalmic (eye) Q12H folic acid 1 mg tablet 1 mg PO DAILY Qty: 90 3RF sulfasalazine 500 mg tablet 1 g PO DAILY 90 Days Qty: 180 3RF Primary Care Provider: Enrique Moses Referrals: Enrique Moses MD [Primary Care Provider, Internal Medicine] - As soon as possible Activity Restrictions/Additional Instructions: Take Tylenol and Motrin for pain control. You can try heat on your lower back. Make sure you are resting and stretching. I would still go to physical therapy for your back next week as planned. Your evaluation in the Emergency Department did not reveal any acute reason for admission. However, I want to emphasize that you may be early in the course of a disease process or illness even if it is not present. For this reason you should follow-up within 24 hours for reevaluation with either your primary care physician or if necessary back here in the Emergency Department. You should return to the Emergency Department immediately if your symptoms worsen or new symptoms develop. Print Language: Sami Disposition Disposition: Home, Self Care
--- NOTE | 2025-09-03 12:58 | EKG12_ITS ---
Test Reason : Blood Pressure : */* mmHG Vent. Rate : 62 BPM Atrial Rate : 62 BPM P-R Int : 188 ms QRS Dur : 88 ms QT Int : 442 ms P-R-T Axes : 18 -42 1 degrees QTcB Int : 448 ms Normal sinus rhythm Left axis deviation ST & T wave abnormality, consider lateral ischemia Abnormal ECG Confirmed by STEVE LOPEZ, CRISTINA ([id number]), editorial assistant MARIBETH PENA ([id number]) on 09/04/2025 9:15:03 AM Referred By: Confirmed By: CRISTINA WILSON MD
[2025-09-03 13:18] LABS: Hematocrit 40.0 % (37-47); Hemoglobin 13.2 g/dL (12.0-15.0); Immature Granulocytes Count 0.080 X10^3/uL (0.0-0.0); Mean Corp Hgb Conc 33.0 g/dL (32-36); Mean Corpuscular Volume 100.8 fL (81-99); Mean Platelet Vol. 10.5 fl (6.2-12.0); NRBC Flagged by Analyzer 0 % (0-5); Platelet Count 168 K/mm3 (150-450); RBC Distribution Width CV 12.3 % (11.6-14.6); RBC Distribution Width SD 46.1 fl (35.1-43.9); Red Blood Count 3.97 M/mm3 (4.2-5.4); White Blood Count 13.0 K/mm3 (4.4-11.0)
[2025-09-03 13:58] LABS: Anion Gap 14 (5-15); BUN 17 mg/dL (4-19); BUN/Creat Ratio 25.9 RATIO (10-20); Calcium,Total 10.0 mg/dL (7.6-11.0); Carbon Dioxide 23.7 mmol/L (21.0-32.0); Chloride 99 mmol/L (98-108); Estimated Creatinine Clearance 56.30 ml/min (50-250); Glucose 128 mg/dL (70-99); Potassium 3.8 mmol/L (3.3-5.1)
[2025-09-03] MEDS: 0.9% Normal Saline (1000mL) 1,000 ML 1000 ML IV (13:58)
[2025-09-03 14:10] LABS: Mucous, Urine 0 SEEN /hpf (<or=2+)
[2025-09-03 14:22] LABS: Color, Urine Yellow (Yellow); Glucose, Dipstick Normal (Normal); Ketone-Dipstick 5 mg/dl (Negative); Leukocyte Esterase-Dipstick 500 /ul (Negative); Nitrite-Dipstick Negative (Negative); Occult Blood-Urine 25 /ul (Negative); Protein-Dipstick 30 mg/dl (Negative); Specific Gravity, Urine 1.020 (1.002-1.030); Urine Bilirubin Dipstick Negative (Negative)
[2025-09-03 14:36] LABS: Red Blood Cells-Urine 0-5 SEEN /hpf (0-5); Squamous Epithelial Cells - UA 0-5 SEEN /hpf (5-10)
== END 2025-09-03 15:28 | disposition home or self-care (01) ==
PROVIDERS: Emergency Provider Student in an Organized Health Care Education/Training Program; PCP Internal Medicine; Visit Provider Student in an Organized Health Care Education/Training Program
DX: S09.90XA Unspecified injury of head, initial encounter (principal); M54.50 Low back pain, unspecified; W00.0XXA Fall on same level due to ice and snow, initial encounter
CPT/HCPCS: 70450; 72125; 72131; 80048; 81001; 85025; 87631; 93005; 96361; 96372; 96374; 99285; A4216

== ENCOUNTER 2025-09-29 13:00 | Outpatient (RCR) | payer MEDICARE, SELFPAY ==
[2020-07-12 07:13] VITALS: BMI 33.4
--- NOTE | 2025-08-25 16:06 | HP.PTEVAL ---
Patient's Visit Information Visit Information Visit Information: SALLY CALLAHAN is a 70 year old F referred to Physical Therapy by RAAD Sims with a diagnosis of GAIT ABNORMALITY. Date of Evaluation: 08/25/25 Physical Therapist: Yennifer Mcconnell, PT, Cert MDT Visit Plan Frequency: 2x /Week Duration: 4-6 Weeks Plan: BALANCE TRAINING. CORE AND NEREYDA HIP STABILITY EX INSTRUCTION INCLUDING APPROPRIATE INTENSITY AND ROM FOR CURRENT HOME AND GYM PROGRAMS. LE STRETCHING EX INSTRUCTION INCLUDING HIP INTERNAL AND EXTERNAL ROTATION FOR CURRENT PROGRAMS. HEALTHY BACK AND POSTURE HABIT EDUCATION AND TRAINING. WRITTEN INSTRUCTIONS FOR ABOVE. Subjective Subjective: PATIENT REPORTS SHE DOESN'T WALK VERY GOOD AND STATES "I WADDLE BECAUSE I GET STIFF". SHE REPORTS SHE HAD X-RAYS OF HER BACK AND HIPS AND SHE HAD DEGENERATION IN THEM. SHE ALSO REPORTS INTERMITTENT LOW BACK AND NEREYDA HIP PAIN. PATIENT LIVES ALONE ON ONE STORY WITH ONE STEP IN. 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 Present since: ABOUT 5 YEARS Pain Scale: WORST 8/10, LEAST 0/10 Currently: 0/10 Is it getting better, worse or staying the same: HAS BEEN GRADUALLY GETTING WORSE Commenced as a result of: NO APPARENT REASON Worse: WEATHER, WALKING A LOT, PATIENT REPORTS SHE IS VERY STIFF AFTER 20 MIN ON recumbent bike LEVEL 4 (THIS PT COULD NOT FIND IT ON PATIENTS [employer] PAPERS). Better: CHANGE OF POSITION Disturbed sleep: SOMETIMES Previous history/Previous treatment: NO BACK OR HIP SURGERY OR INJECTIONS. NO BACK OR HIP CHIROPRACTIC OR PHYSICAL THERAPY TREATMENTS. Treatment this episode: NONE Coughing/sneezing/straining: NE Gait: INDEP GAIT WITHOUT ANY AD'S. NO RECENT FALLS. STATES SHE HAD A FALL ABOUT 4 YEARS AGO BUT DOESN'T RECALL THE CIRCUMSTATNCES. Bowel or Bladder Dysfunction: NO Accidents: NO Unexplained weight loss: NO PMH/Recent major surgery: NEREYDA SHLD REPLACEMENTS ~ 4-5 YEARS AGO. Hiatal hernia CPAP (continuous positive airway pressure) dependence Sleep apnea High cholesterol [REMOVAL BILATERAL CATARACTS] [APONEUROPATHY RIGHT HAND] [LEFT HAND SURGERY DUPUYTREN'S CONTRACTUR] [COCHLEAR IMPLANT LEFT EAR] Shingles Seborrheic keratoses Gilbert's syndrome, unspecified Osteopenia Internal hemorrhoids without complication Goiter Glaucoma Hypertension Diverticulitis Chronic rhinitis Chronic left shoulder pain H/O cardiac catheterization H/O right heart catheterization S/P AVR (aortic valve replacement) Objective Objective: THIS PATIENT AMBULATES INDEP'LY INTO PHYSICAL THERAPY WITHOUT ANY AD'S WITH GOOD CADANCE AND NO LOB BUT SHE IS UNABLE TO SLS ON EITHER LE MORE THAN A SECOND OR TWO WITHOUT UE ASSIST. SHE IS ALSO UNABLE TO TANDEM STANCE WITH EITHER LE INFRONT OF THE OTHER. Sensory deficit: NEREYDA LE'S GROSSLY INTACT. ROM deficit: NEREYDA HIP TIGHTNESS L > R. NEREYDA HS AND CALF TIGHTNESS. Motor deficit: NEREYDA LE'S GROSSLY 5/5 EXCEPT L HIP 4-/5 AND R 4/5. Lumbar mvmt loss: flex - MIN ext - MOD B SG - MIN TO MOD Core strength: FAIR + TO GOOD - TUG TIME: 16.72" WITHOUT AD 30" STS TEST: 14 WITHOUT UE ASSIST. Balance/Special Test Scores Lower Extremity Functional Score: 28 Goals Goal 1:: DECREASE C/O BACK AND HIP PAIN BY AT LEAST 50% TO EASE ADL'S. Goal Time Frame: 4-6 Weeks Goal 2:: PATIENT WILL BE ABLE TO SLS ON EACH LE X AT LEAST 5 SEC EA WITHOUT UE ASSIST TO IMPROVE BALANCE. Goal Time Frame: 4-6 Weeks Goal 3:: PATIENT WILL BE ABLE TO TANDEM STANCE X AT LEAST 10 SEC WITHOUT UE ASSIST TO IMPROVE BALANCE Goal Time Frame: 4-6 Weeks Goal 4:: PATIENT WILL BE ABLE TO TANDEM WALK X 5 FEET TO IMPROVE BALANCE Goal Time Frame: 4-6 Weeks Goal 5:: PATIENT WILL BE ABLE TO COMMUNICATE/DEMONSTRATE HEALTHY POSTURE AND BACK HABITS TO EASE ADL'S. Goal Time Frame: 4-6 Weeks Goal 6:: PATIENT WILL BE INDEP WITH EX'S FOR CORE AND HIP STRENGTHENING AND LE STRETCHING TO IMPROVE ADL TOLERANCE. Goal Time Frame: 4-6 Weeks Rehabilitation Potential Physical Therapy Diagnosis: CORE AND HIP STIFFNESS AND WEAKNESS WITH PAIN AND BALANCE DEFICIT. Rehabilitation Potential: Good Anticipated Interventions Patient/Client Instruction: Educate patient on: Condition, Plan of Care and Risk Factors For the Purpose of:: To improve self management Therapeutic Exercise to Include: Strength training, Balance training, Body mechanics, Postural training, Flexibilty training, Gait and locomotor training, Neuromotor development and Dynamic Lumbar Stabilization For the Purpose of:: To decrease pain, To improve muscle performance and motor function, To increase tolerance to activity/condition/position, To improve ability of physical actions for home/community/work/leisure, To improve gait and locomotor functions, To increase flexibility/ROM, To improve balance and To improve self management Cryotherapy (ice pack, ice massage): Yes Thermo therapy (hot pack): Yes Ultrasound (thermal/non thermal): Yes For the Purpose of:: To decrease pain, To decrease swelling/inflammation and To improve nutrient delivery to tissue Text: Thank you for the opportunity to evaluate your patient. For Medicare and Medicare HMO plans, please review the plan of care and approve it. It will need to be FAXED BACK to us at [phone] for Medicare purposes. For Medicare only, by signing this I certify the plan of care. Please let me know if there are questions or concerns regarding this plan of care. Physician Signature: Date:
--- NOTE | 2025-09-29 15:09 | HP.PTREVAL_ITS ---
Re-Evaluation Intro: Michelle Cheatham, RAAD, It has been my pleasure to treat SALLY CALLAHAN over the last 9 visits for GAIT ABNORMALITY. Please see the progress note below for an update on the physical therapy plan of care! Subjective Subjective: PATIENT REPORTS R LOW BACK PAIN TODAY AND DIFFICULTY LIFTING HER R LEG IN AND OUT OF THE CAR FOR NO APPARENT REASON. REPORTS SHE TRIES TO DO HER EXERCISES EVERYDAY AND SHE ADJUSTS THEM ACCORDING TO HER PAIN NEEDED. Objective Objective/Function: PATIENT WAS SEEN TODAY FOR RE-ASSESSMENT OF PROGRESS TOWARD THE SET PT GOALS AND THE NEED FOR FURTHER PHYSICAL THERAPY VS READINESS FOR DISCHARGE. THIS PATIENT PRESENTS TO PT TODAY WITH INCREASED R LBP FOR NO APPARENT REASON BUT HER BALANCE AND STRENGTH TESTING HAS IMPROVED. SHE IS INDEP WITH A HEP AND AGREEABLE TO DISCHARGE. RECOMMENDED PHYSICIAN FOLLOW UP IF HER BACK PAIN DOES NOT RESOLVE WITH TIME AND ADVISED AVOIDING ANY EX'S THAT AGGREVATE HER SYMPTOMS. SHE APPEARED TO TOLERATE EXAM WELL TODAY WELL LAST PT SESSION. UPON EXAM TODAY: HIS PATIENT AMBULATES INDEP'LY INTO PHYSICAL THERAPY TODAY W/O ANY AD'S WITH GOOD CADANCE AND NO LOB. SHE IS ABLE TO SLS ON EA LE X APPROX 5 SEC EA WITH SEVERAL ATTEMPTS. SHE IS ALSO ABLE TO TANDEM STANCE WITH EITHER LE INFRONT OF THE OTHER WITHOUT DIFFICULTY TODAY. Sensory deficit: NEREYDA LE'S GROSSLY INTACT. ROM deficit: NEREYDA HIP TIGHTNESS L > R. NEREYDA HS AND CALF TIGHTNESS. Motor deficit: NEREYDA LE'S GROSSLY 5/5 EXCEPT L HIP 4-/5 AND R 4/5. PATIENT C/O MILD INCREASE IN R LBP WITH R HIP FLEXION TESTING BUT NO WORSE A RESULT. PATIENT DENIES INCREASED BACK OR R HIP PAIN WITH R HIP ABD, ADD, IR AND ER STRENGTH TESTING. Lumbar mvmt loss: flex - NIL ext - MOD B SG - MIN TO MOD PATIENT DENIES INCREASED LBP WITH LUMBAR ROM TESTING ALL PLANES EXCEPT MILD INC REASED R LBP WITH L SG TESTING AND NW A RESULT. Core strength: FAIR + TO GOOD - TUG TIME: 15.93" WITHOUT AD 30" STS TEST: 16 WITHOUT UE ASSIST. Plan Plan Plan: D/C. PATIENT AGREEABLE. WILL FOLLOW UP WITH PHYSICIAN NEEDED. Balance/Gait/Functional tests Balance/Special Test Scores Lower Extremity Functional Score: 24 Goals Goals Goal 1:: DECREASE C/O BACK AND HIP PAIN BY AT LEAST 50% TO EASE ADL'S. Goal Time Frame: 4-6 Weeks Goal Progress: Not Met Goal 2:: PATIENT WILL BE ABLE TO SLS ON EACH LE X AT LEAST 5 SEC EA WITHOUT UE ASSIST TO IMPROVE BALANCE. Goal Time Frame: 4-6 Weeks Goal Progress: Goal Met Goal 3:: PATIENT WILL BE ABLE TO TANDEM STANCE X AT LEAST 10 SEC WITHOUT UE ASSIST TO IMPROVE BALANCE Goal Time Frame: 4-6 Weeks Goal Progress: Goal Met Goal 4:: PATIENT WILL BE ABLE TO TANDEM WALK X 5 FEET TO IMPROVE BALANCE Goal Time Frame: 4-6 Weeks Goal Progress: NT Goal 5:: PATIENT WILL BE ABLE TO COMMUNICATE/DEMONSTRATE HEALTHY POSTURE AND BACK HABITS TO EASE ADL'S. Goal Time Frame: 4-6 Weeks Goal Progress: NT Goal 6:: PATIENT WILL BE INDEP WITH EX'S FOR CORE AND HIP STRENGTHENING AND LE STRETCHING TO IMPROVE ADL TOLERANCE. Goal Time Frame: 4-6 Weeks Goal Progress: Goal Met Anticipated Interventions Anticipated Interventions Patient/Client Instruction: Educate patient on: Condition, Plan of Care and Risk Factors For the Purpose of:: To improve self management Therapeutic Exercise to Include: Strength training, Balance training, Body mechanics, Postural training, Flexibilty training, Gait and locomotor training, Neuromotor development and Dynamic Lumbar Stabilization For the Purpose of:: To decrease pain, To improve muscle performance and motor function, To increase tolerance to activity/condition/position, To improve ability of physical actions for home/community/work/leisure, To improve gait and locomotor functions, To increase flexibility/ROM, To improve balance and To improve self management Cryotherapy (ice pack, ice massage): Yes Thermo therapy (hot pack): Yes Ultrasound (thermal/non thermal): Yes For the Purpose of:: To decrease pain, To decrease swelling/inflammation and To improve nutrient delivery to tissue Re-Evaluation Ending Re-evaluation ending: Please do not hesitate to contact me at [phone] by phone or if you have questions or concerns regarding this new plan of care! Sincerely, Yennifer Mcconnell, PT, Cert MDT
--- NOTE | 2025-09-29 15:13 | HP.PTDCSUM ---
Discharge Summary D/C summary: It has been my pleasure to treat SALLY CALLAHAN referred by RAAD Sims, with the diagnosis of GAIT ABNORMALITY for a total of 9 visit(s). Discharge Date: 09/29/25 Please see the following information for a summary of their discharge status. Subjective Subjective: PATIENT REPORTS R LOW BACK PAIN TODAY AND DIFFICULTY LIFTING HER R LEG IN AND OUT OF THE CAR FOR NO APPARENT REASON. REPORTS SHE TRIES TO DO HER EXERCISES EVERYDAY AND SHE ADJUSTS THEM ACCORDING TO HER PAIN NEEDED. SHE STATES SHE FEELS THERAPY HAS DEFINATELY HELPED. Pain back: Pain Intensity (Out of 10): 4 Objective Objective/Function: PATIENT WAS SEEN TODAY FOR RE-ASSESSMENT OF PROGRESS TOWARD THE SET PT GOALS AND THE NEED FOR FURTHER PHYSICAL THERAPY VS READINESS FOR DISCHARGE. THIS PATIENT PRESENTS TO PT TODAY WITH INCREASED R LBP FOR NO APPARENT REASON BUT HER BALANCE AND STRENGTH TESTING HAS IMPROVED. SHE IS INDEP WITH A HEP AND AGREEABLE TO DISCHARGE. RECOMMENDED PHYSICIAN FOLLOW UP IF HER BACK PAIN DOES NOT RESOLVE WITH TIME AND ADVISED AVOIDING ANY EX'S THAT AGGREVATE HER SYMPTOMS. SHE APPEARED TO TOLERATE EXAM WELL TODAY WELL LAST PT SESSION. UPON EXAM TODAY: HIS PATIENT AMBULATES INDEP'LY INTO PHYSICAL THERAPY TODAY W/O ANY AD'S WITH GOOD CADANCE AND NO LOB. SHE IS ABLE TO SLS ON EA LE X APPROX 5 SEC EA WITH SEVERAL ATTEMPTS. SHE IS ALSO ABLE TO TANDEM STANCE WITH EITHER LE INFRONT OF THE OTHER WITHOUT DIFFICULTY TODAY. Sensory deficit: NEREYDA LE'S GROSSLY INTACT. ROM deficit: NEREYDA HIP TIGHTNESS L > R. NEREYDA HS AND CALF TIGHTNESS. Motor deficit: NEREYDA LE'S GROSSLY 5/5 EXCEPT L HIP 4-/5 AND R 4/5. PATIENT C/O MILD INCREASE IN R LBP WITH R HIP FLEXION TESTING BUT NO WORSE A RESULT. PATIENT DENIES INCREASED BACK OR R HIP PAIN WITH R HIP ABD, ADD, IR AND ER STRENGTH TESTING. Lumbar mvmt loss: flex - NIL ext - MOD B SG - MIN TO MOD PATIENT DENIES INCREASED LBP WITH LUMBAR ROM TESTING ALL PLANES EXCEPT MILD INCREASED R LBP WITH L SG TESTING AND NW A RESULT. Core strength: FAIR + TO GOOD - TUG TIME: 15.93" WITHOUT AD 30" STS TEST: 16 WITHOUT UE ASSIST. Goals Goal 1:: DECREASE C/O BACK AND HIP PAIN BY AT LEAST 50% TO EASE ADL'S. Goal Progress: Not Met Goal 2:: PATIENT WILL BE ABLE TO SLS ON EACH LE X AT LEAST 5 SEC EA WITHOUT UE ASSIST TO IMPROVE BALANCE. Goal Progress: Goal Met Goal 3:: PATIENT WILL BE ABLE TO TANDEM STANCE X AT LEAST 10 SEC WITHOUT UE ASSIST TO IMPROVE BALANCE Goal Progress: Goal Met Goal 4:: PATIENT WILL BE ABLE TO TANDEM WALK X 5 FEET TO IMPROVE BALANCE Goal Progress: NT Goal 5:: PATIENT WILL BE ABLE TO COMMUNICATE/DEMONSTRATE HEALTHY POSTURE AND BACK HABITS TO EASE ADL'S. Goal Progress: NT Goal 6:: PATIENT WILL BE INDEP WITH EX'S FOR CORE AND HIP STRENGTHENING AND LE STRETCHING TO IMPROVE ADL TOLERANCE. Goal Progress: Goal Met Plan Plan: D/C. PATIENT AGREEABLE. WILL FOLLOW UP WITH PHYSICIAN NEEDED. D/C Information d/c sentence: If there are questions or concerns regarding this patient's physical therapy, please feel free to call me at [phone]. Thank you for the referral of this patient. Sincerely, Yennifer Mcconnell, PT, Cert MDT Balance/Gait/Functional tests Balance/Special Test Scores Lower Extremity Functional Score: 24
== END 2025-09-29 19:00 | disposition home or self-care (01) ==
LOC: PT 13:00
PROVIDERS: PCP Internal Medicine; Referring Provider Nurse Practitioner; Visit Provider Nurse Practitioner
DX: R26.9 Unspecified abnormalities of gait and mobility (principal)
CPT/HCPCS: 97110; 97162; 97530

== ENCOUNTER → 2025-09-29 | Outpatient (CLI) | payer MEDICARE, SELFPAY ==
[2020-07-12 07:13] VITALS: BMI 33.4
[2025-09-29 11:01] LABS: Hematocrit 37.6 % (37-47); Hemoglobin 12.5 g/dL (12.0-15.0); Immature Granulocytes Count 0.050 X10^3/uL (0.0-0.0); Mean Corp Hgb Conc 33.2 g/dL (32-36); Mean Corpuscular Volume 100.5 fL (81-99); Mean Platelet Vol. 10.0 fl (6.2-12.0); NRBC Flagged by Analyzer 0 % (0-5); Platelet Count 192 K/mm3 (150-450); RBC Distribution Width CV 12.4 % (11.6-14.6); RBC Distribution Width SD 45.7 fl (35.1-43.9); Red Blood Count 3.74 M/mm3 (4.2-5.4); White Blood Count 6.9 K/mm3 (4.4-11.0)
[2025-09-29 11:46] LABS: Ferritin 192 ng/mL (22-378)
[2025-09-29 12:00] LABS: Iron 86 ug/dL (50-170); Iron Binding Capacity,Total 332 ug/dL (250-450); Iron Binding Capacity,Unsat 246 ug/dL (228-428)
[2025-09-30 08:09] LABS: Transferrin 285 mg/dL (192-364)
== END | disposition home or self-care (01) ==
LOC: LAB 10:20
PROVIDERS: PCP Internal Medicine; Referring Provider Internal Medicine Gastroenterology; Visit Provider Internal Medicine Gastroenterology
DX: D64.9 Anemia, unspecified (principal)
CPT/HCPCS: 36415; 82728; 83540; 83550; 84466; 85025